=== PATIENT | female | born 1960 | race Caucasian/White ===

== ENCOUNTER 2022-03-01 11:14 | Inpatient (IN) | payer MEDICARE, MEDICAID, SELFPAY ==
[2022-03-01] VITALS (15 sets, daily range): BP systolic 64–120; BP diastolic 46–70; PULSE 73–189; RESP 12–23; TEMP 36.3–37.4; O2SAT 90–96; BMI 33.9
--- NOTE | ~2022-03-01 | CT_ITS ---
EXAMINATION: CT ANGIOGRAM OF THE CHEST WITH AND WITHOUT CONTRAST (CT PULMONARY ANGIOGRAM FOR PE) CLINICAL INFORMATION: Reason for Exam dyspnea elevated ddimer COMPARISON: Previous chest x-ray from earlier the same day TECHNIQUE: Prior to contrast administration, noncontrast localization images were obtained. Subsequently, multidetector volumetric imaging was performed from the thoracic inlet to below the diaphragms following the administration of 65 mL Omnipaque 350 intravenous contrast. No contrast reaction reported Sagittal, coronal, and MIP oblique sagittal reformatted images were obtained on the CT workstation, uploaded to PACS, and reviewed. This CT examination was performed using dose optimization techniques as appropriate, variously including the following: *Automated exposure control *Adjustment of mA and/or kV according to patient size (this includes techniques or standardized protocols for targeted exams where dose is matched to indication/reason for exam; i.e. extremities or head) *Use of iterative reconstruction technique Total exam dose-length product 342 mGy-cm FINDINGS: QUALITY OF STUDY/CONTRAST BOLUS: Satisfactory. PULMONARY ARTERIES: Evaluation of the pulmonary arteries is limited due to artifact from respiratory motion. No large or central pulmonary embolism is seen. Evaluation of smaller segmental and subsegmental pulmonary arteries is limited. THORACIC AORTA: No aneurysm or dissection. LUNG: There is consolidation and some atelectasis in the right middle lobe. There is a smaller area of atelectasis and consolidation seen in the dependent posterior basal right lower lobe. There are small nodular opacities right upper lobe and more superior right lower lobe and lingula. There is patchy atelectasis or consolidation in the lingula and left lower lobe. No endobronchial or endotracheal lesion. PLEURA: No pleural effusion or pneumothorax. MEDIASTINUM: Normal heart size. No pericardial effusion. Small mediastinal and right hilar nodes. No enlarged hilar or mediastinal lymphadenopathy. No evidence of septal bowing or right heart strain. CHEST WALL/AXILLA: No axillary or internal mammary lymphadenopathy. OSSEOUS STRUCTURES: No acute or suspicious osseous abnormality. UPPER ABDOMEN: The left adrenal gland may have been removed.. No reflux of contrast into the hepatic veins to suggest elevated right heart pressures. CT/CT angio chest PE protocol IMPRESSION: Limited evaluation for pulmonary embolism due to artifact from respiratory motion. No large or central pulmonary embolism. Evaluation of smaller segmental and subsegmental pulmonary arteries is limited due to motion artifact. Right middle lobe consolidation and atelectasis. Smaller consolidation and atelectasis in the posterior basal right lower lobe and inferior segment of the lingula. VTE: negative
--- NOTE | ~2022-03-01 | XR_ITS ---
EXAMINATION: XR CHEST CLINICAL INFORMATION: Dyspnea. COMPARISON: None TECHNIQUE: Frontal view of the chest was obtained. FINDINGS: An opacity seen at the right lung base laterally. The right upper lung field and left lung are clear. The heart and mediastinal structures are unremarkable. XR/XR chest 1V IMPRESSION: Small right pleural effusion and/or infiltrate/atelectasis.
--- NOTE | 2022-03-01 11:22 | ECG_ITS ---
Test Reason : hypotension Blood Pressure : / mmHG Vent. Rate : 144 BPM Atrial Rate : 000 BPM P-R Int : 000 ms QRS Dur : 078 ms QT Int : 278 ms P-R-T Axes : 000 030 043 degrees QTc Int : 430 ms Atrial fibrillation with rapid ventricular response Nonspecific ST abnormality Abnormal ECG No previous ECGs available Referred By: Maria Isabel Tobin Electronically Signed By:SHERRIE REZA MD
[2022-03-01] MEDS: dilTIAZem HCL 50 MG/10 ML VIAL IVPUSH ×2 (11:37→11:42)
[2022-03-01 11:40] LABS: Basophils Percent Auto 0.2 % (0-2); Eosinophils Percent Auto 0.1 % (0-4); Hematocrit 43.5 % (37.0-47.0); Hemoglobin 14.2 g/dl (12.0-16.0); Imm Gran Abs Auto 0.07 X10*3/uL (0.00-0.03); Imm Gran Pct Auto 0.5 % (0.0-0.4); Lymphocytes Absolute Auto 0.7 X10*3/uL (1.2-4.9); Lymphocytes Percent Auto 5.2 % (20-40); MANUAL DIFF FLAG SCAN; Mean Corpuscular HGB Conc 32.6 g/dl (31.0-35.0); Mean Corpuscular Hemoglobin 31.7 pg (27.0-33.0); Mean Corpuscular Volume 97.1 fL (80.0-98.0); Mean Platelet Volume 10.2 fL (9.4-12.3); Monocytes Absolute Auto 1.9 X10*3/uL (0.1-1.2); Monocytes Percent Auto 14.4 % (2-11); Neutrophils Absolute Auto 10.4 x10*3/uL (2.0-8.3); Neutrophils Percent Auto 79.6 % (45-73); Platelet Count 205 X10*3/uL (160-400); Red Blood Count 4.48 X10*6/uL (4.20-5.50); Red Cell Distribution Width 15.4 % (11.0-16.0); SCAN SMEAR FLAG 1; White Blood Count 13.1 X10*3/uL (4.8-10.8)
[2022-03-01] MEDS: Magnesium Sulfate/H2O 2 GM/50 ML PIGGYBACK IV (11:42)
[2022-03-01] MEDS: Hydrocortisone Sod Succ/PF 100 MG VIAL IVPUSH (11:42)
[2022-03-01] MEDS: 0.9 % Sodium Chloride 1,000 ML 999 ML IVCONT (11:42)
[2022-03-01 11:52] LABS: INTERNATIONAL NORM RATIO 1.4 (0.9-1.1); Prothrombin Time 16.1 SEC (9.9-13.0)
[2022-03-01 11:54] LABS: D Dimer High Sensitivity 540 NG/ML; Partial Thromboplastin Time 35.9 SEC (24.1-38.0)
[2022-03-01 11:57] LABS: SLIDE REVIEW VERIFIED
[2022-03-01] MEDS: dilTIAZem HCL 125 MG in 0.9 % Sodium Chloride 100 ML 10 MG IVCONT (12:00)
[2022-03-01] MEDS: Acetaminophen 325 MG TABLET 650 MG PO (12:03)
--- NOTE | 2022-03-01 12:03 | ED_ITS ---
HPI - Weakness General Chief complaint: General Medical Stated complaint: NAUSEA,CONFUSION,IRREG HEARTRATE Time Seen by Provider: 03/01/22 11:21 Source: patient Mode of arrival: EMS Limitations: no limitations History of Present Illness MD Complaint: generalized weakness (nausea, cough, fevers, chills) Onset (ago): day(s) (3) Duration: progressively worsening Location: generalized Migration: none Severity: moderate Quality: dull Relieving factors: none Exacerbating factors: movement and exertion Associated symptoms: fever/chills, loss of appetite, nausea/vomiting, myalgias and shortness of breath Related Data Home Medications Medication Instructions Recorded Confirmed albuterol sulfate 90 mcg/actuation 1 inh inhalation Q4H PRN Wheezing 03/01/22 03/01/22 aerosol inhaler amitriptyline 10 mg tablet 10 mg PO BEDTIME 03/01/22 03/01/22 cyclobenzaprine 5 mg tablet 5 mg PO BEDTIME 03/01/22 03/01/22 fluticasone propionate 220 1 puff PO BID 03/01/22 03/01/22 mcg/actuation HFA aerosol inhaler (Flovent HFA) fluticasone propionate 50 1 spray intranasal BID PRN Allergy 03/01/22 03/01/22 mcg/actuation nasal Symptoms spray,suspension ipratropium 0.5 mg-albuterol 3 mg 3 ml inhalation BID 03/01/22 03/01/22 (2.5 mg base)/3 mL nebulization soln letrozole 2.5 mg tablet 2.5 mg PO DAILY 03/01/22 03/01/22 prednisone 5 mg tablet 1 tab PO DAILY 03/01/22 03/01/22 Allergies Allergy/AdvReac Type Severity Reaction Status Date / Time Sulfa (Sulfonamide Allergy Anaphylaxis Verified 03/01/22 11:22 Antibiotics) Review of Systems Review of Systems: Constitutional : pos Fever, pos Chills, pos Fatigue, pos Malaise ENT/Mouth : No sore throat, No Rhinorrhea Eyes: No Eye Pain, No Swelling, No Redness Cardiovascular : No Chest Pain, pos SOB, pos Dyspnea on Exertion, No Orthopnea, No Edema, No Palpitations Respiratory : pos Cough, pos Sputum, pos Wheezing Gastrointestinal : pos Nausea, No Vomiting, No Diarrhea, No Constipation, No abdominal Pain, No Hematochezia, No Melena Genitourinary : No Dysuria, No Urinary Frequency, No Hematuria, Musculoskeletal : No joint pain, No Myalgias, No Joint Swelling Skin : No Skin Lesions, No rash Neuro : pos Weakness, No Numbness, No Dizziness, No Headache Psych : No Anxiety/Panic, No Depression Heme/Lymph: No Bruising, No Bleeding,No Lymphadenopathy Endocrine : No Polyuria, No Polydipsia All other systems reviewed and are negative [facility] Past Medical History Attestation statement: The following information was validated with the patient. Medical History Adrenal cancer Breast cancer COPD (chronic obstructive pulmonary disease) Social History Social History (Updated 03/01/22 @ 12:05 by Maria Isabel Tobin DO) Patient Tobacco Use Status: Current everyday Tobacco user Advance Directives: Yes Advance Directives on File: No Physical Exam Vital Signs: Vital Signs: Last Vital Signs Temp 99.3 F 03/01/22 11:25 Pulse 78 03/01/22 14:01 Resp 12 03/01/22 14:01 BP 106/58 L 03/01/22 14:01 Pulse Ox 91 L 03/01/22 14:01 O2 Del Method 03/01/22 14:01 O2 Flow Rate 7 03/01/22 14:01 Oxygen Flow Rate 2 03/01/22 11:25 BMI result Body Mass Index 33.9 Appearance: Alert. Oriented X3. Mild acute distress. Eyes: Pupils equal, round and reactive to light. ENT: Pharynx normal. Neck: Normal inspection. Neck supple. CVS: irregular tachycardic heart rate and rhythm. Pulses normal. Respiratory: No respiratory distress. Breath sounds very diminished and coarse Abdomen: Soft and non-tender. Skin: Skin warm and dry. Pale skin color. Normal skin turgor. Extremities: trace pitting lower extremity edema. No calf ttp Neuro: Oriented X 3. No motor deficit. No sensory deficit. Course Course Course Narrative: HR down to 100s, BP 100/50 feels much better 91% on 6L CTA pending drastically improved hypotension due to dilt gtt HR down in 70s gtt cut down will recheck BP I do not think hypotension is due to infection or severe sepsis but due to the diltiazem gtt. diltiazem gtt stopped BP already up patient feels better elevation in troponin is due to demand from rapid afib - she denies chest pain MDM - Weakness MDM Narrative Medical decision making narrative: 61 yo female with hx of COPD, breast cancer, adrenal cancer on daily prednisone reports fevers, chills, productive cough, she comes in rapid afib, increased O2 demands 80s at home, hot to touch - at this time dilt bolus, PO tylenol, IVF, CXR - empiric ceftriaxone/doxy, xopenex. Given adrenal insufficiency will bolus with 100mg hydrocortisone. Lab Data Result diagrams: 03/01/22 11:31 03/01/22 13:37 Labs: Lab Results 03/01/22 03/01/22 03/01/22 Range/Units 11:31 11:31 11:31 WBC 13.1 H (4.8-10.8) X10*3/uL RBC 4.48 (4.20-5.50) X10*6/uL Hgb 14.2 (12.0-16.0) g/dl Hct 43.5 (37.0-47.0) % MCV 97.1 (80.0-98.0) fL MCH 31.7 (27.0-33.0) pg MCHC 32.6 (31.0-35.0) g/dl RDW 15.4 (11.0-16.0) % Plt Count 205 (160-400) X10*3/uL MPV 10.2 (9.4-12.3) fL Immature Gran % (Auto) 0.5 H (0.0-0.4) % Neut % (Auto) 79.6 H (45-73) % Lymph % (Auto) 5.2 L (20-40) % Humphreys % (Auto) 14.4 H (2-11) % Eos % (Auto) 0.1 (0-4) % Baso % (Auto) 0.2 (0-2) % Lymph # (Auto) 0.7 L (1.2-4.9) X10*3/uL Humphreys # (Auto) 1.9 H (0.1-1.2) X10*3/uL Eos # (Auto) 0.0 (0.0-0.4) X10*3/uL Baso # (Auto) 0.0 (0.0-0.2) X10*3/uL Abs Immat Gran (auto) 0.07 H (0.00-0.03) X10*3/uL Absolute Neuts (auto) 10.4 H (2.0-8.3) x10*3/uL Absolute Nucleated RBC 0.000 (0.0-0.012) X10*3/uL Nucleated RBC % (auto) 0.0 (0.0-0.2) /100WBC Smear Tech's Comments VERIFIED PT 16.1 H (9.9-13.0) SEC INR 1.4 H (0.9-1.1) APTT 35.9 (24.1-38.0) SEC D-Dimer High Sensitivty 540 NG/ML VBG pH (7.32-7.43) VBG pCO2 mmHg VBG pO2 mmHg VBG HCO3 (22-26) mmol/L VBG O2 Saturation % VBG Base Excess mmol/L Sodium (135-145) mmol/L Potassium (3.3-5.1) mmol/L Chloride (96-108) mmol/L Carbon Dioxide (22-29) mmol/L Anion Gap (12-20) BUN (9-16) mg/dL Creatinine (0.5-1.4) mg/dL Estim Creat Clear Calc Estimated GFR Random Glucose (60-115) mg/dL Lactic Acid 2.7 H* (0.5-2.0) mmol/L Lactic Acid F/U @ 2Hr (0.5-2.0) mmol/L Calcium (8.4-10.2) mg/dL Magnesium (1.6-2.6) mg/dL Total Bilirubin (0.0-1.0) mg/dL Direct Bilirubin (0.0-0.5) mg/dL AST (5-31) U/L ALT (0-31) U/L Alkaline Phosphatase (39-117) U/L Troponin I High Sens (<3.5-17.0) ng/L B-Natriuretic Peptide (<100) pg/mL Total Protein (6.5-8.0) g/dL Albumin (3.5-5.0) g/dL Lipase (8-78) U/L Procalcitonin ng/mL COVID-19 ([facility]) (Negative) COVID-19 Clin Com 03/01/22 03/01/22 03/01/22 Range/Units 11:31 11:31 11:35 WBC (4.8-10.8) X10*3/uL RBC (4.20-5.50) X10*6/uL Hgb (12.0-16.0) g/dl Hct (37.0-47.0) % MCV (80.0-98.0) fL MCH (27.0-33.0) pg MCHC (31.0-35.0) g/dl RDW (11.0-16.0) % Plt Count (160-400) X10*3/uL MPV (9.4-12.3) fL Immature Gran % (Auto) (0.0-0.4) % Neut % (Auto) (45-73) % Lymph % (Auto) (20-40) % Humphreys % (Auto) (2-11) % Eos % (Auto) (0-4) % Baso % (Auto) (0-2) % Lymph # (Auto) (1.2-4.9) X10*3/uL Humphreys # (Auto) (0.1-1.2) X10*3/uL Eos # (Auto) (0.0-0.4) X10*3/uL Baso # (Auto) (0.0-0.2) X10*3/uL Abs Immat Gran (auto) (0.00-0.03) X10*3/uL Absolute Neuts (auto) (2.0-8.3) x10*3/uL Absolute Nucleated RBC (0.0-0.012) X10*3/uL Nucleated RBC % (auto) (0.0-0.2) /100WBC Smear Tech's Comments PT (9.9-13.0) SEC INR (0.9-1.1) APTT (24.1-38.0) SEC D-Dimer High Sensitivty NG/ML VBG pH (7.32-7.43) VBG pCO2 mmHg VBG pO2 mmHg VBG HCO3 (22-26) mmol/L VBG O2 Saturation % VBG Base Excess mmol/L Sodium (135-145) mmol/L Potassium (3.3-5.1) mmol/L Chloride (96-108) mmol/L Carbon Dioxide (22-29) mmol/L Anion Gap (12-20) BUN (9-16) mg/dL Creatinine (0.5-1.4) mg/dL Estim Creat Clear Calc Estimated GFR Random Glucose (60-115) mg/dL Lactic Acid (0.5-2.0) mmol/L Lactic Acid F/U @ 2Hr (0.5-2.0) mmol/L Calcium (8.4-10.2) mg/dL Magnesium (1.6-2.6) mg/dL Total Bilirubin (0.0-1.0) mg/dL Direct Bilirubin (0.0-0.5) mg/dL AST (5-31) U/L ALT (0-31) U/L Alkaline Phosphatase (39-117) U/L Troponin I High Sens 19.9 H (<3.5-17.0) ng/L B-Natriuretic Peptide 80 (<100) pg/mL Total Protein (6.5-8.0) g/dL Albumin (3.5-5.0) g/dL Lipase (8-78) U/L Procalcitonin 0.70 ng/mL COVID-19 ([facility]) Negative (Negative) COVID-19 Clin Com See Note 03/01/22 03/01/22 03/01/22 Range/Units 11:37 13:37 14:22 WBC (4.8-10.8) X10*3/uL RBC (4.20-5.50) X10*6/uL Hgb (12.0-16.0) g/dl Hct (37.0-47.0) % MCV (80.0-98.0) fL MCH (27.0-33.0) pg MCHC (31.0-35.0) g/dl RDW (11.0-16.0) % Plt Count (160-400) X10*3/uL MPV (9.4-12.3) fL Immature Gran % (Auto) (0.0-0.4) % Neut % (Auto) (45-73) % Lymph % (Auto) (20-40) % Humphreys % (Auto) (2-11) % Eos % (Auto) (0-4) % Baso % (Auto) (0-2) % Lymph # (Auto) (1.2-4.9) X10*3/uL Humphreys # (Auto) (0.1-1.2) X10*3/uL Eos # (Auto) (0.0-0.4) X10*3/uL Baso # (Auto) (0.0-0.2) X10*3/uL Abs Immat Gran (auto) (0.00-0.03) X10*3/uL Absolute Neuts (auto) (2.0-8.3) x10*3/uL Absolute Nucleated RBC (0.0-0.012) X10*3/uL Nucleated RBC % (auto) (0.0-0.2) /100WBC Smear Tech's Comments PT (9.9-13.0) SEC INR (0.9-1.1) APTT (24.1-38.0) SEC D-Dimer High Sensitivty NG/ML VBG pH 7.34 (7.32-7.43) VBG pCO2 46 mmHg VBG pO2 49 mmHg VBG HCO3 25 (22-26) mmol/L VBG O2 Saturation 73.0 % VBG Base Excess -1.1 mmol/L Sodium 135 (135-145) mmol/L Potassium 4.5 (3.3-5.1) mmol/L Chloride 99 (96-108) mmol/L Carbon Dioxide 22 (22-29) mmol/L Anion Gap 19 (12-20) BUN 24 H (9-16) mg/dL Creatinine 1.11 (0.5-1.4) mg/dL Estim Creat Clear Calc 53.5 Estimated GFR 50 Random Glucose 123 H (60-115) mg/dL Lactic Acid (0.5-2.0) mmol/L Lactic Acid F/U @ 2Hr 0.9 (0.5-2.0) mmol/L Calcium 9.3 (8.4-10.2) mg/dL Magnesium 2.8 H (1.6-2.6) mg/dL Total Bilirubin 2.7 H (0.0-1.0) mg/dL Direct Bilirubin 1.4 H (0.0-0.5) mg/dL AST 23 (5-31) U/L ALT 16 (0-31) U/L Alkaline Phosphatase 106 (39-117) U/L Troponin I High Sens (<3.5-17.0) ng/L B-Natriuretic Peptide (<100) pg/mL Total Protein 7.0 (6.5-8.0) g/dL Albumin 3.8 (3.5-5.0) g/dL Lipase < 4 L (8-78) U/L Procalcitonin ng/mL COVID-19 ([facility]) (Negative) COVID-19 Clin Com 03/01/22 Range/Units 14:49 WBC (4.8-10.8) X10*3/uL RBC (4.20-5.50) X10*6/uL Hgb (12.0-16.0) g/dl Hct (37.0-47.0) % MCV (80.0-98.0) fL MCH (27.0-33.0) pg MCHC (31.0-35.0) g/dl RDW (11.0-16.0) % Plt Count (160-400) X10*3/uL MPV (9.4-12.3) fL Immature Gran % (Auto) (0.0-0.4) % Neut % (Auto) (45-73) % Lymph % (Auto) (20-40) % Humphreys % (Auto) (2-11) % Eos % (Auto) (0-4) % Baso % (Auto) (0-2) % Lymph # (Auto) (1.2-4.9) X10*3/uL Humphreys # (Auto) (0.1-1.2) X10*3/uL Eos # (Auto) (0.0-0.4) X10*3/uL Baso # (Auto) (0.0-0.2) X10*3/uL Abs Immat Gran (auto) (0.00-0.03) X10*3/uL Absolute Neuts (auto) (2.0-8.3) x10*3/uL Absolute Nucleated RBC (0.0-0.012) X10*3/uL Nucleated RBC % (auto) (0.0-0.2) /100WBC Smear Tech's Comments PT (9.9-13.0) SEC INR (0.9-1.1) APTT (24.1-38.0) SEC D-Dimer High Sensitivty NG/ML VBG pH (7.32-7.43) VBG pCO2 mmHg VBG pO2 mmHg VBG HCO3 (22-26) mmol/L VBG O2 Saturation % VBG Base Excess mmol/L Sodium (135-145) mmol/L Potassium (3.3-5.1) mmol/L Chloride (96-108) mmol/L Carbon Dioxide (22-29) mmol/L Anion Gap (12-20) BUN (9-16) mg/dL Creatinine (0.5-1.4) mg/dL Estim Creat Clear Calc Estimated GFR Random Glucose (60-115) mg/dL Lactic Acid (0.5-2.0) mmol/L Lactic Acid F/U @ 2Hr (0.5-2.0) mmol/L Calcium (8.4-10.2) mg/dL Magnesium (1.6-2.6) mg/dL Total Bilirubin (0.0-1.0) mg/dL Direct Bilirubin (0.0-0.5) mg/dL AST (5-31) U/L ALT (0-31) U/L Alkaline Phosphatase (39-117) U/L Troponin I High Sens 55.0 H* D (<3.5-17.0) ng/L B-Natriuretic Peptide (<100) pg/mL Total Protein (6.5-8.0) g/dL Albumin (3.5-5.0) g/dL Lipase (8-78) U/L Procalcitonin ng/mL COVID-19 ([facility]) (Negative) COVID-19 Clin Com ECG Data Attestation: I personally reviewed and interpreted this ECG as follows: ECG interpretation date: 03/01/22 ECG interpretation time: 12:36 Interpretation: Rate: 144 Rhythm: afib with rvr [place]: normal Normal QRS complex. ST T wave : non specific no LORENZO qTC: normal prior studies: none The study has been interpreted contemporaneously by me. EKG #2 Rate: 72 Rhythm: NSR [place]: normal Normal P waves. Normal SHANITA. Normal QRS complex. ST T wave : no LORENZO, inverted I and aVL, V1-V2 qTC: normal prior studies: now in NSR The study has been interpreted contemporaneously by me. Critical Care Time Critical Care Time Critical Care Time: Yes Total Critical Care Time: 60 Attestation: IVF, IV dilt bolus x 2, albuterol neb, HR control, admission to hospital, bedside management I attest to this time spent taking care of the patient Discharge Plan Discharge Clinical Impression: Atrial fibrillation with rapid ventricular response, Acidosis, lactic, Acute exacerbation of chronic obstructive pulmonary disease Pneumonia Qualifiers: Pneumonia type: due to unspecified organism Laterality: right Lung location: lower lobe of lung Qualified Code(s): J18.9 - Pneumonia, unspecified organism Patient Disposition: Admitted As Inpatient
[2022-03-01 12:05] LABS: Troponin-I High Sensitivity 19.9 ng/L (<3.5-17.0)
[2022-03-01 12:08] LABS: Venous Blood Gas Refer to POC result
[2022-03-01 12:08] LABS: VBG Base Excess -1.1 mmol/L; VBG HCO3 25 mmol/L (22-26); VBG pCO2 46 mmHg; VBG pH 7.34 (7.32-7.43); VBG pO2 49 mmHg
[2022-03-01 12:10] LABS: Lactic Acid 2.7 mmol/L (0.5-2.0)
[2022-03-01] MEDS: cefTRIAXone sodium 1 GM in 0.9 % Sodium Chloride 50 ML IV (12:22)
[2022-03-01 12:25] LABS: COVID-19 Test Negative (Negative); IDNOW Serial# 16C4AD1C
--- NOTE | 2022-03-01 12:29 | PC.NURSE ---
HR 130s-140s, BP 99/58 Dr. Tobin instructed to leave drip at 15 mg/hr.
[2022-03-01 13:37] LABS: Reflex Lactate? Lactic Acid Added
--- NOTE | 2022-03-01 13:54 | PC.NURSE ---
HR at 82, BP 82/50, Cardizem titrated to 5 mg/hr. Patient asymptomatic. MD aware, fluids running
--- NOTE | 2022-03-01 13:56 | PHA.MEDREC ---
Pharmacy Consult ? Medication Reconciliation Pharmacy has completed the medication reconciliation. Patient reported all medications and had some prescription bottles with her. Patient has non formulary medication Letrozol, if patient gets admitted. Bonnie Sawyer, TilaD
[2022-03-01 13:57] LABS: B Type Natriuretic Peptide 80 pg/mL (<100)
--- NOTE | 2022-03-01 13:58 | ECG_ITS ---
Test Reason : NSR Blood Pressure : / mmHG Vent. Rate : 072 BPM Atrial Rate : 072 BPM P-R Int : 148 ms QRS Dur : 074 ms QT Int : 376 ms P-R-T Axes : 055 018 084 degrees QTc Int : 411 ms Normal sinus rhythm Cannot rule out Inferior infarct , age undetermined Abnormal ECG When compared with ECG of 01-MAR-2022 11:47, Previous ECG has undetermined rhythm, needs review Minimal criteria for Inferior infarct are now Present T wave inversion now evident in Anterolateral leads Referred By: Maria Isabel Tobin Electronically Signed By:John Roa
[2022-03-01] MEDS: Doxycycline Hyclate 100 MG in 0.9 % Sodium Chloride 250 ML 166.67 MG IV (14:06)
--- NOTE | 2022-03-01 14:16 | PC.NURSE ---
Patient remains asymptomatic. cardizem drip stopped per . BP 106/56, HR 78. MD aware.
[2022-03-01 14:26] LABS: Alanine Aminotransferase 16 U/L (0-31); Albumin Level 3.8 g/dL (3.5-5.0); Alkaline Phosphatase 106 U/L (39-117); Anion Gap 19 (12-20); Aspartate Amino Transferase 23 U/L (5-31); Bilirubin Direct 1.4 mg/dL (0.0-0.5); Bilirubin Total 2.7 mg/dL (0.0-1.0); Blood Urea Nitrogen 24 mg/dL (9-16); Calcium 9.3 mg/dL (8.4-10.2); Carbon Dioxide 22 mmol/L (22-29); Chloride 99 mmol/L (96-108); Creatinine Clr Calc Pharmacy 53.5; Estimated Glomerular Filt Rate 50; Glucose Random 123 mg/dL (60-115); Lipase < 4 U/L (8-78); Magnesium 2.8 mg/dL (1.6-2.6); Potassium 4.5 mmol/L (3.3-5.1); Sodium 135 mmol/L (135-145)
[2022-03-01 14:40] LABS: ~Lactic Acid-LAB USE ONLY 0.9 mmol/L (0.5-2.0)
[2022-03-01] MEDS: 0.9 % Sodium Chloride 1,000 ML 999 ML IV (14:41)
[2022-03-01] MEDS: iohexoL 350 MG/ML 100 ML INFUS..BTL IV (15:25)
--- NOTE | 2022-03-01 17:17 | P.HPHOSP_ITS ---
History of Present Illness Date of Service: 03/01/22 Attending physician on admission: Paul Houser Chief Complaint: generalized weakness 61-year-old female patient with past medical history significant for COPD on 2 L of home oxygen as needed for shortness of breath, history of breast cancer and adrenal cancer on daily prednisone presented to [facility] with 4-5 days history of generalized weakness, body ache associated with subjective fevers chills decreased appetite nausea vomiting and shortness of breath patient did to home COVID test that were negative, she noted her oxygenation was 84-86% last night therefore use 5 L of oxygen but since symptoms were progressing she came to the ED in the ED patient was noted to be in atrial fibrillation with rapid ventricular response therefore she was treated with Cardizem IV boluses subsequently she converted to normal sinus rhythm and noted to have low blood pressure therefore treated with IV fluid blood pressure improved heart rate remains in sinus since stable at present, for further workup showed mildly elevated WBC count, elevated bilirubin with normal liver enzymes, troponin elevated at 55 chest x-ray showed no acute infiltrate COVID-19 negative, CTA chest showed no evidence of large or central PE, evaluation of smaller segmental and subsegmental pulmonary artery was limited due to motion artifact, patient noted to have right middle lobe and posterior basis consolidation and atelectasis, as well as consolidation/atelectasis in inferior segment of lingula, patient of being admitted for continued monitoring and treatment. Review of Systems Review of Systems: General no headache no dizziness CVS no chest pain, no palpitation. Respiratory Shortness of breath and cough no urinary urgency, no dysuria vascular skeletal generalized myalgias and body ache skin no rash Yes all other systems are reviewed and are negative [facility] Medical History Adrenal cancer Breast cancer COPD (chronic obstructive pulmonary disease) Pertinent family history: mother had atrial fibrillation and COPD /not aware of her father Social History Patient Tobacco Use Status: Current everyday Tobacco user Advance Directives: Yes Advance Directives on File: No Meds Allergies Allergy/AdvReac Type Severity Reaction Status Date / Time Sulfa (Sulfonamide Allergy Anaphylaxis Verified 03/01/22 11:22 Antibiotics) Active Medications: Current Medications Acetaminophen (Acetaminophen 325 Mg Tablet) 650 mg PO Q6H PRN PRN Reason: Pain, Mild (Pain Scale 1-3) Albuterol/Ipratropium (Albuterol/Iprat 2.5/0.5mg 3 Ml Ampul.Neb) 3 ml INHALE RQ6H WHILE AWAKE [facility] Albuterol/Ipratropium (Albuterol/Iprat 2.5/0.5mg 3 Ml Ampul.Neb) 3 ml INHALE RQ4H PRN PRN Reason: sob Amitriptyline HCl (Amitriptyline Hcl 10 Mg Tablet) 10 mg PO BEDTIME CAREY Cyclobenzaprine HCl (Cyclobenzaprine Hcl 5 Mg Tablet) 5 mg PO BEDTIME [facility] Enoxaparin Sodium (Enoxaparin Sodium 40 Mg/0.4 Ml Syringe) 40 mg SUBCUT Q24H [facility] Diltiazem HCl 125 mg/ Sodium (Chloride) 125 mls @ 0 mls/hr IVCONT .Q0M [facility]; Protocol Last Titration: 03/01/22 13:57 Dose: 0 mg/hr, 0 mls/hr Ceftriaxone Sodium 1 gm/ (Sodium Chloride) 50 mls @ 100 mls/hr IV Q24H [facility] Azithromycin 500 mg/ Sodium (Chloride) 250 mls @ 125 mls/hr IV Q24H [facility] Letrozole (Letrozole 2.5 Mg Tablet) 2.5 mg PO DAILY [facility] Melatonin (Melatonin 3 Mg Tablet) 3 mg PO BEDTIME PRN PRN Reason: Insomnia Methylprednisolone Sodium Succinate (Methylprednisolone Sod Succ 40 Mg/Ml Vial) 40 mg IVPUSH Q8H [facility] Nicotine (Nicotine 21 Mg Patch.Td24) 21 mg TRANSDERMA DAILY [facility] Nicotine Polacrilex (Nicotine Polacrilex 2 Mg Gum) 2 mg BUCCAL Q2H PRN PRN Reason: Nicotine Cravings Ondansetron HCl (Ondansetron Hcl 4 Mg/2 Ml Vial) 4 mg IVPUSH Q8H PRN PRN Reason: Nausea and Vomiting Pharmacy Consult (Consult Rx Perform Med Rec) 1 each MISCELLANE ONCE PRN PRN Reason: Consult order Sodium Chloride (0.9 % Sodium Chloride Flush 3 Ml Syringe) 3 ml IVFLUSH QSHIFT [facility] Home Medications Medication Instructions Recorded Confirmed Last Taken Type albuterol sulfate 90 mcg/actuation 1 inh inhalation Q4H PRN Wheezing 03/01/22 03/01/22 02/28/22 History aerosol inhaler amitriptyline 10 mg tablet 10 mg PO BEDTIME 03/01/22 03/01/22 02/28/22 History cyclobenzaprine 5 mg tablet 5 mg PO BEDTIME 03/01/22 03/01/22 02/28/22 History fluticasone propionate 220 1 puff PO BID 03/01/22 03/01/22 02/28/22 History mcg/actuation HFA aerosol inhaler (Flovent HFA) fluticasone propionate 50 1 spray intranasal BID PRN Allergy 03/01/22 03/01/22 02/28/22 History mcg/actuation nasal Symptoms spray,suspension ipratropium 0.5 mg-albuterol 3 mg 3 ml inhalation BID 03/01/22 03/01/22 02/28/22 History (2.5 mg base)/3 mL nebulization soln letrozole 2.5 mg tablet 2.5 mg PO DAILY 03/01/22 03/01/22 03/01/22 History prednisone 5 mg tablet 1 tab PO DAILY 03/01/22 03/01/22 02/28/22 History Physical Exam Vital Signs and Narrative: Vital Signs: Last Vital Signs Temp 97.6 F 03/01/22 16:00 Pulse 75 03/01/22 16:00 Resp 16 03/01/22 16:00 BP 102/58 L 03/01/22 16:00 Pulse Ox 93 03/01/22 16:00 O2 Del Method 03/01/22 16:00 O2 Flow Rate 6 03/01/22 16:00 Oxygen Flow Rate 2 03/01/22 11:25 BMI result Body Mass Index 33.9 Const: Other: General awake alert x3, no acute distress. HEENT PERRLA , anicteric sclerae Neck supple no JVD. CVS regular rate rhythm, Respiratory lungs coarse breath sounds with expiratory rhonchi, no use of accessory muscles Gastrointestinal abdomen soft, nontender, bowel sounds audible, no guarding , no rigidity. Extremities no edema. Neuro nonfocal Skin no rash psych appropriate affect Results Labs CBC and Chem 7: 03/01/22 11:31 03/01/22 13:37 Labs: Laboratory Results - last 24 hr 03/01/22 03/01/22 03/01/22 11:31 11:31 11:31 MCV 97.1 MCH 31.7 MCHC 32.6 RDW 15.4 Plt Count 205 MPV 10.2 Immature Gran % (Auto) 0.5 H Neut % (Auto) 79.6 H Lymph % (Auto) 5.2 L Emmet % (Auto) 14.4 H Eos % (Auto) 0.1 Baso % (Auto) 0.2 Lymph # (Auto) 0.7 L Emmet # (Auto) 1.9 H Eos # (Auto) 0.0 Baso # (Auto) 0.0 Abs Immat Gran (auto) 0.07 H Absolute Neuts (auto) 10.4 H Absolute Nucleated RBC 0.000 Nucleated RBC % (auto) 0.0 Smear Tech's Comments VERIFIED PT 16.1 H INR 1.4 H APTT 35.9 D-Dimer High Sensitivty 540 VBG pH VBG pCO2 VBG pO2 VBG HCO3 VBG O2 Saturation VBG Base Excess Anion Gap Estim Creat Clear Calc Estimated GFR Random Glucose Lactic Acid 2.7 H* Lactic Acid F/U @ 2Hr Calcium Magnesium Total Bilirubin Direct Bilirubin AST ALT Alkaline Phosphatase Troponin I High Sens B-Natriuretic Peptide Total Protein Albumin Lipase Procalcitonin COVID-19 ([facility]) [employer] 03/01/22 03/01/22 03/01/22 11:31 11:31 11:35 MCV MCH MCHC RDW Plt Count MPV Immature Gran % (Auto) Neut % (Auto) Lymph % (Auto) Emmet % (Auto) Eos % (Auto) Baso % (Auto) Lymph # (Auto) Emmet # (Auto) Eos # (Auto) Baso # (Auto) Abs Immat Gran (auto) Absolute Neuts (auto) Absolute Nucleated RBC Nucleated RBC % (auto) Smear Tech's Comments PT INR APTT D-Dimer High Sensitivty VBG pH VBG pCO2 VBG pO2 VBG HCO3 VBG O2 Saturation VBG Base Excess Anion Gap Estim Creat Clear Calc Estimated GFR Random Glucose Lactic Acid Lactic Acid F/U @ 2Hr Calcium Magnesium Total Bilirubin Direct Bilirubin AST ALT Alkaline Phosphatase Troponin I High Sens 19.9 H B-Natriuretic Peptide 80 Total Protein Albumin Lipase Procalcitonin 0.70 COVID-19 ([facility]) Negative COVID-[facility] See Note 03/01/22 03/01/22 03/01/22 11:37 13:37 14:22 MCV MCH MCHC RDW Plt Count MPV Immature Gran % (Auto) Neut % (Auto) Lymph % (Auto) Emmet % (Auto) Eos % (Auto) Baso % (Auto) Lymph # (Auto) Emmet # (Auto) Eos # (Auto) Baso # (Auto) Abs Immat Gran (auto) Absolute Neuts (auto) Absolute Nucleated RBC Nucleated RBC % (auto) Smear Tech's Comments PT INR APTT D-Dimer High Sensitivty VBG pH 7.34 VBG pCO2 46 VBG pO2 49 VBG HCO3 25 VBG O2 Saturation 73.0 VBG Base Excess -1.1 Anion Gap 19 Estim Creat Clear Calc 53.5 Estimated GFR 50 Random Glucose 123 H Lactic Acid Lactic Acid F/U @ 2Hr 0.9 Calcium 9.3 Magnesium 2.8 H Total Bilirubin 2.7 H Direct Bilirubin 1.4 H AST 23 ALT 16 Alkaline Phosphatase 106 Troponin I High Sens B-Natriuretic Peptide Total Protein 7.0 Albumin 3.8 Lipase < 4 L Procalcitonin COVID-19 ([facility]) COVID-19 [employer] 03/01/22 14:49 MCV MCH MCHC RDW Plt Count MPV Immature Gran % (Auto) Neut % (Auto) Lymph % (Auto) Emmet % (Auto) Eos % (Auto) Baso % (Auto) Lymph # (Auto) Emmet # (Auto) Eos # (Auto) Baso # (Auto) Abs Immat Gran (auto) Absolute Neuts (auto) Absolute Nucleated RBC Nucleated RBC % (auto) Smear Tech's Comments PT INR APTT D-Dimer High Sensitivty VBG pH VBG pCO2 VBG pO2 VBG HCO3 VBG O2 Saturation VBG Base Excess Anion Gap Estim Creat Clear Calc Estimated GFR Random Glucose Lactic Acid Lactic Acid F/U @ 2Hr Calcium Magnesium Total Bilirubin Direct Bilirubin AST ALT Alkaline Phosphatase Troponin I High Sens 55.0 H* D B-Natriuretic Peptide Total Protein Albumin Lipase Procalcitonin COVID-19 ([facility]) COVID-19 [employer] [facility] Radiologist's Impressions: Impressions Chest X-Ray 03/01/22 11:40 IMPRESSION: Small right pleural effusion and/or infiltrate/atelectasis. Chest CTA 03/01/22 15:30 IMPRESSION: Limited evaluation for pulmonary embolism due to artifact from respiratory motion. No large or central pulmonary embolism. Evaluation of smaller segmental and subsegmental pulmonary arteries is limited due to motion artifact. Right middle lobe consolidation and atelectasis. Smaller consolidation and atelectasis in the posterior basal right lower lobe and inferior segment of the lingula. VTE: negative Assessment and Plan (1) Atrial fibrillation with rapid ventricular response: Status: Acute (2) Pneumonia: Qualifiers: Laterality: right Lung location: lower lobe of lung Pneumonia type: due to unspecified organism Qualified Code(s): J18.9 - Pneumonia, unspecified organism Status: Acute (3) Acute exacerbation of chronic obstructive pulmonary disease: Status: Acute (4) Tobacco use disorder: Status: Acute (5) Acidosis, lactic: Status: Acute Plan 61-year-old female with past medical history of COPD on 2 L of home oxygen as needed, history of breast cancer/adrenal cancer, with history of continues tobacco use smoke 2 packs of cigarettes per day presented with symptoms of generalized weakness, myalgias fever chills nausea vomiting shortness of breath hypoxia. atrial fibrillation with RVR no prior history of atrial fibrillation, patient converted to normal sinus rhythm after IV Cardizem boluses with drop in blood pressure currently blood pressure and pulse is stable denies chest pain, no shortness of breath will hold off on anticoagulation since had transient atrial fibrillation , will discuss further treatment plan with Cardiology obtain cardiology consult/ check TSH/ echo elevated troponin likely related to atrial fibrillation patient denies chest pain, no palpitation will follow repeat troponin and check an echocardiogram acute on chronic hypoxic respiratory failure due to COPD exacerbation/ multi focal pneumonia COVID negative will check respiratory viral panel, check Legionella and strep pneumo antigen will treat with IV Solu Medrol, scheduled and as needed updraft treatment, IV ceftriaxone and azithromycin continue oxygen support and wean as tolerated cough medication/ incentive spirometry lactic acidosis likely related to hypoxia/ use of updraft treatment not due to sepsis tobacco use disorder will place on nicotine patch and nicotine gum patient is motivated to quit smoking history of breast/adrenal tumor continue letrozole, hold prednisone maintenance dose since patient being treated with IV steroids elevated bilirubin, no abdominal pain normal liver enzymes will follow DVT prophylaxis with Lovenox code status full code patient need 2 night inpatient stay due to multi focal pneumonia with hypoxic respiratory failure requiring IV antibiotics and IV steroids. Quality Stroke Does the patient have a stroke diagnosis?: No VTE Prior VTE?: No VTE Risk Level:: Medical - moderate - high VTE Device Contraindication: Treatment Not Indicated VTE Drug Contraindication: N/A - Med Ordered
[2022-03-01] MEDS: Enoxaparin Sodium 40 MG/0.4 ML SYRINGE SUBCUT (18:06)
[2022-03-01] MEDS: methylPREDNISolone Sod Succ 40 MG/ML VIAL IVPUSH (18:06)
[2022-03-01] MEDS: Nicotine 21 MG PATCH.TD24 TRANSDERMA (18:06)
[2022-03-01] MEDS: Azithromycin 500 MG in 0.9 % Sodium Chloride 250 ML 125 MG IV (18:07)
[2022-03-01 19:20] LABS: Troponin-I High Sensitivity 39.9 ng/L (<3.5-17.0)
--- NOTE | 2022-03-01 19:54 | PC.NURSE ---
PATIENT WAS ASSISTED INTO BEDSIDE COMMODE .
[2022-03-01 20:02] LABS: Appearance Urine CLEAR; Color Urine DK YELLOW; Glucose Urine UA NEG (NEG); Leukocyte Esterase Urine NEG (NEG); Nitrite Urine NEG (NEG); UACC Culture Trigger NO; Urine Blood TRACE (NEG); Urine Ketones 5 MG/DL (NEG); Urine Protein 1+ MG/DL (NEG-TRACE)
[2022-03-01 20:17] LABS: Bacteria Urine 1+ /LPF; Mucus Urine TRACE /LPF; Squamous Epithelial Cell Urine 1+ /LPF
[2022-03-01] MEDS: Albuterol/Iprat 2.5/0.5MG 3 ML AMPUL.NEB INHALE (20:23)
[2022-03-01] MEDS: Cyclobenzaprine HCl 5 MG TABLET PO (21:12)
[2022-03-01] MEDS: Amitriptyline HCl 10 MG TABLET PO (21:13)
[2022-03-02] VITALS (13 sets, daily range): BP systolic 125–160; BP diastolic 67–81; PULSE 75–98; RESP 16–20; TEMP 36.1–36.8; O2SAT 89–98
[2022-03-02] MEDS: 0.9 % Sodium Chloride Flush 3 ML SYRINGE IVFLUSH ×4 (01:17→19:47)
[2022-03-02] MEDS: methylPREDNISolone Sod Succ 40 MG/ML VIAL IVPUSH ×2 (01:17→09:43)
--- NOTE | 2022-03-02 01:27 | PC.NURSE ---
fluids, antibiotics and magnesium were infused prior to this RN assumming care
--- NOTE | 2022-03-02 02:35 | PC.NURSE ---
pt disconnected from monitor to use bedside commode. pt transferred OOB and voided independently, steady gait, remains O2 dependent
[2022-03-02 07:14] LABS: Hematocrit 36.6 % (37.0-47.0); Hemoglobin 11.9 g/dl (12.0-16.0); Mean Corpuscular HGB Conc 32.5 g/dl (31.0-35.0); Mean Corpuscular Hemoglobin 31.7 pg (27.0-33.0); Mean Corpuscular Volume 97.6 fL (80.0-98.0); Mean Platelet Volume 10.1 fL (9.4-12.3); Platelet Count 159 X10*3/uL (160-400); Red Blood Count 3.75 X10*6/uL (4.20-5.50); Red Cell Distribution Width 15.3 % (11.0-16.0); White Blood Count 5.9 X10*3/uL (4.8-10.8)
[2022-03-02 07:38] LABS: Alanine Aminotransferase 16 U/L (0-31); Albumin Level 3.4 g/dL (3.5-5.0); Alkaline Phosphatase 98 U/L (39-117); Aspartate Amino Transferase 16 U/L (5-31); Bilirubin Direct 0.3 mg/dL (0.0-0.5); Bilirubin Total 0.4 mg/dL (0.0-1.0); Total Protein 5.8 g/dL (6.5-8.0)
[2022-03-02 07:59] LABS: Thyroid Stimulating Hormone 0.22 uIU/mL (0.32-4.0)
[2022-03-02] MEDS: Albuterol/Iprat 2.5/0.5MG 3 ML AMPUL.NEB INHALE ×3 (08:11→19:56)
[2022-03-02 08:54] LABS: Adenovirus PCR Not Detected (Not Detect.); Bordetella parapertussis PCR Not Detected (Not Detect.); Bordetella pertussis PCR Not Detected (Not Detect.); Chlamydia pneumoniae PCR Not Detected (Not Detect.); Coronavirus 229E PCR Not Detected (Not Detect.); Coronavirus HKU1 PCR Not Detected (Not Detect.); Coronavirus NL63 PCR Not Detected (Not Detect.); Coronavirus OC43 PCR Not Detected (Not Detect.); Human metapneumovirus PCR Not Detected (Not Detect.); Influenza A PCR Not Detected (Not Detect.); Influenza B PCR Not Detected (Not Detect.); Mycoplasma pneumoniae PCR Not Detected (Not Detect.); Parainfluenza 1 PCR Not Detected (Not Detect.); Parainfluenza 2 PCR Not Detected (Not Detect.); Parainfluenza 3 PCR Not Detected (Not Detect.); Parainfluenza 4 PCR Not Detected (Not Detect.); RSV PCR Not Detected (Not Detect.); Rhino/Enterovirus PCR Detected (Not Detect.); SARS-CoV-2 PCR Not Detected (Not Detect.)
--- NOTE | 2022-03-02 09:10 | MHC.CM.PN ---
CM met with Patient at bedside and addressed IMM with her, providing her with the original and placing a copy on the chart. Patient lives with her 2 Daughters; one Daughter has Downs Syndrome and Patient is HER [employer] and her other Daughter, Lilian IS pATIENT'S HCP. Patient uses O[facility] at home PRN and [facility]. Patient has received Moderna/COVID VAX x2 AND HER pcp IS dr. Krish Cuevas.
[2022-03-02] MEDS: Nicotine 21 MG PATCH.TD24 TRANSDERMA (09:43)
[2022-03-02] MEDS: Letrozole 2.5 MG TABLET PO (09:43)
[2022-03-02 10:59] LABS: Free T4 (Free Thyroxine) 1.01 ng/dL (0.71-1.85)
--- NOTE | 2022-03-02 11:53 | P.PNIM_ITS ---
Subjective Subjective Date of Service: 03/02/22 Interval History: had a restless night, she feels related to IV steroids since had similar reaction in the past with use of steroids,, is coughing and bringing up thick ash phlegm no other overnight issues tele monitor showed normal sinus rhythm, denies chest pain, no palpitation. 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 awake alert x3, no acute distress.? HEENT PERRLA , anicteric sclerae Neck supple no JVD. CVS? regular rate rhythm, Respiratory lungs? coarse breath sounds, no rhonchi, no use of accessory muscles Gastrointestinal abdomen soft, nontender, bowel sounds audible, no guarding , no rigidity. Extremities no edema. Neuro nonfocal Skin no rash psych appropriate affect Objective Data Active Medications Acetaminophen (Acetaminophen 325 Mg Tablet) 650 mg PO Q6H PRN PRN Reason: Pain, Mild (Pain Scale 1-3) Albuterol/Ipratropium (Albuterol/Iprat 2.5/0.5mg 3 Ml Ampul.Neb) 3 ml INHALE RQ6H WHILE AWAKE [facility] [place] Last Admin: 03/02/22 08:11 Dose: 3 ml Documented By: DARBY Albuterol/Ipratropium (Albuterol/Iprat 2.5/0.5mg 3 Ml Ampul.Neb) 3 ml INHALE RQ4H PRN PRN Reason: sob Amitriptyline HCl (Amitriptyline Hcl 10 Mg Tablet) 10 mg PO BEDTIME [facility] [place] Last Admin: 03/01/22 21:13 Dose: 10 mg Documented By: OLGA-YINKA Cyclobenzaprine HCl (Cyclobenzaprine Hcl 5 Mg Tablet) 5 mg PO BEDTIME [facility] [place] Last Admin: 03/01/22 21:12 Dose: 5 mg Documented By: SHASHI Enoxaparin Sodium (Enoxaparin Sodium 40 Mg/0.4 Ml Syringe) 40 mg SUBCUT Q24H [facility] [place] Last Admin: 03/01/22 18:06 Dose: 40 mg Documented By: GUIDO Ceftriaxone Sodium 1 gm/ (Sodium Chloride) 50 mls @ 100 mls/hr IV Q24H [facility] [place] Azithromycin 500 mg/ Sodium (Chloride) 250 mls @ 125 mls/hr IV Q24H [facility] [place] Last Infusion: 03/02/22 00:14 Dose: 0 mls/hr Documented By: THERESA Letrozole (Letrozole 2.5 Mg Tablet) 2.5 mg PO DAILY [facility] [place] Last Admin: 03/02/22 09:43 Dose: 2.5 mg Documented By: KRYSTLE Melatonin (Melatonin 3 Mg Tablet) 3 mg PO BEDTIME PRN PRN Reason: Insomnia Methylprednisolone Sodium Succinate (Methylprednisolone Sod Succ 40 Mg/Ml Vial) 40 mg IVPUSH Q8H [facility] [place] Last Admin: 03/02/22 09:43 Dose: 40 mg Documented By: KRYSTLE Nicotine (Nicotine 21 Mg Patch.Td24) 21 mg TRANSDERMA DAILY [facility] [place] Last Admin: 03/02/22 09:43 Dose: 21 mg Documented By: KRYSTLE Nicotine Polacrilex (Nicotine Polacrilex 2 Mg Gum) 2 mg BUCCAL Q2H PRN PRN Reason: Nicotine Cravings Ondansetron HCl (Ondansetron Hcl 4 Mg/2 Ml Vial) 4 mg IVPUSH Q8H PRN PRN Reason: Nausea and Vomiting Pharmacy Consult (Consult Rx Perform Med Rec) 1 each MISCELLANE ONCE PRN PRN Reason: Consult order Sodium Chloride (0.9 % Sodium Chloride Flush 3 Ml Syringe) 3 ml IVFLUSH QSHIFT [facility] [place] Last Admin: 03/02/22 09:44 Dose: 3 ml Documented By: KRYSTLE Labs CBC & Chem 7: 03/02/22 07:06 03/01/22 13:37 Labs: Laboratory Results - last 24 hr 03/01/22 03/01/22 03/01/22 11:31 11:31 11:31 MCV MCH MCHC RDW Plt Count MPV Immature Gran % (Auto) 0.5 H Neut % (Auto) 79.6 H Lymph % (Auto) 5.2 L [place] % (Auto) 14.4 H Eos % (Auto) 0.1 Baso % (Auto) 0.2 Lymph # (Auto) 0.7 L [place] # (Auto) 1.9 H Eos # (Auto) 0.0 Baso # (Auto) 0.0 Abs Immat Gran (auto) 0.07 H Absolute Neuts (auto) 10.4 H Absolute Nucleated RBC 0.000 Nucleated RBC % (auto) 0.0 Smear Tech's Comments VERIFIED PT 16.1 H INR 1.4 H APTT 35.9 D-Dimer High Sensitivty 540 VBG pH VBG pCO2 VBG pO2 VBG HCO3 VBG O2 Saturation VBG Base Excess Anion Gap Estim Creat Clear Calc Estimated GFR Random Glucose Lactic Acid 2.7 H* Lactic Acid F/U @ 2Hr Calcium Magnesium Total Bilirubin Direct Bilirubin AST ALT Alkaline Phosphatase Troponin I High Sens B-Natriuretic Peptide Total Protein Albumin Lipase Procalcitonin TSH Free T4 Urine Color Urine Appearance Urine pH Ur Specific [place] Urine Protein Urine Glucose (UA) Urine Ketones Urine Blood Urine Nitrite Ur Leukocyte Esterase Urine RBC Urine WBC Ur Squamous Epith Cells Urine Bacteria Hyaline Casts Urine Mucus Respiratory Panel Vitale Adenovirus (Rapid PCR) B.pert (TEM-PCR) B.parapertussis DNA PCR C. pneumoniae DNA (PCR) Coronavirus OC43 (PCR) Coronavirus HKU1 (PCR) Coronavirus 229E (PCR) COVID-19 ([facility]) COVID-19 Clin Com Coronavirus NL63 (PCR) Human Metapneumovir PCR Influenza A (RT-PCR) Influenza B (RT-PCR) M. pneumoniae (PCR) Parainfluenza 1 (PCR) Parainfluenza 2 (PCR) Parainfluenza 3 (PCR) Parainfluenza 4 (PCR) RSV (PCR) Entero/Rhino (PCR) SARS-CoV-2 RNA (RT-PCR) 03/01/22 03/01/22 03/01/22 11:31 11:31 11:35 MCV MCH MCHC RDW Plt Count MPV Immature Gran % (Auto) Neut % (Auto) Lymph % (Auto) [place] % (Auto) Eos % (Auto) Baso % (Auto) Lymph # (Auto) [place] # (Auto) Eos # (Auto) Baso # (Auto) Abs Immat Gran (auto) Absolute Neuts (auto) Absolute Nucleated RBC Nucleated RBC % (auto) Smear Tech's Comments PT INR APTT D-Dimer High Sensitivty VBG pH VBG pCO2 VBG pO2 VBG HCO3 VBG O2 Saturation VBG Base Excess Anion Gap Estim Creat Clear Calc Estimated GFR Random Glucose Lactic Acid Lactic Acid F/U @ 2Hr Calcium Magnesium Total Bilirubin Direct Bilirubin AST ALT Alkaline Phosphatase Troponin I High Sens 19.9 H B-Natriuretic Peptide 80 Total Protein Albumin Lipase Procalcitonin 0.70 TSH Free T4 Urine Color Urine Appearance Urine pH Ur Specific [place] Urine Protein Urine Glucose (UA) Urine Ketones Urine Blood Urine Nitrite Ur Leukocyte Esterase Urine RBC Urine WBC Ur Squamous Epith Cells Urine Bacteria Hyaline Casts Urine Mucus Respiratory Panel Vitale Adenovirus (Rapid PCR) B.pert (TEM-PCR) B.parapertussis DNA PCR C. pneumoniae DNA (PCR) Coronavirus OC43 (PCR) Coronavirus HKU1 (PCR) Coronavirus 229E (PCR) COVID-19 ([facility]) Negative COVID-19 Clin Com See Note Coronavirus NL63 (PCR) Human Metapneumovir PCR Influenza A (RT-PCR) Influenza B (RT-PCR) M. pneumoniae (PCR) Parainfluenza 1 (PCR) Parainfluenza 2 (PCR) Parainfluenza 3 (PCR) Parainfluenza 4 (PCR) RSV (PCR) Entero/Rhino (PCR) SARS-CoV-2 RNA (RT-PCR) 03/01/22 03/01/22 03/01/22 11:37 13:37 14:22 MCV MCH MCHC RDW Plt Count MPV Immature Gran % (Auto) Neut % (Auto) Lymph % (Auto) [place] % (Auto) Eos % (Auto) Baso % (Auto) Lymph # (Auto) [place] # (Auto) Eos # (Auto) Baso # (Auto) Abs Immat Gran (auto) Absolute Neuts (auto) Absolute Nucleated RBC Nucleated RBC % (auto) Smear Tech's Comments PT INR APTT D-Dimer High Sensitivty VBG pH 7.34 VBG pCO2 46 VBG pO2 49 VBG HCO3 25 VBG O2 Saturation 73.0 VBG Base Excess -1.1 Anion Gap 19 Estim Creat Clear Calc 53.5 Estimated GFR 50 Random Glucose 123 H Lactic Acid Lactic Acid F/U @ 2Hr 0.9 Calcium 9.3 Magnesium 2.8 H Total Bilirubin 2.7 H Direct Bilirubin 1.4 H AST 23 ALT 16 Alkaline Phosphatase 106 Troponin I High Sens B-Natriuretic Peptide Total Protein 7.0 Albumin 3.8 Lipase < 4 L Procalcitonin TSH Free T4 Urine Color Urine Appearance Urine pH Ur Specific [place] Urine Protein Urine Glucose (UA) Urine Ketones Urine Blood Urine Nitrite Ur Leukocyte Esterase Urine RBC Urine WBC Ur Squamous Epith Cells Urine Bacteria Hyaline Casts Urine Mucus Respiratory Panel Vitale Adenovirus (Rapid PCR) B.pert (TEM-PCR) B.parapertussis DNA PCR C. pneumoniae DNA (PCR) Coronavirus OC43 (PCR) Coronavirus HKU1 (PCR) Coronavirus 229E (PCR) COVID-19 ([facility]) COVID-19 Clin Com Coronavirus NL63 (PCR) Human Metapneumovir PCR Influenza A (RT-PCR) Influenza B (RT-PCR) M. pneumoniae (PCR) Parainfluenza 1 (PCR) Parainfluenza 2 (PCR) Parainfluenza 3 (PCR) Parainfluenza 4 (PCR) RSV (PCR) Entero/Rhino (PCR) SARS-CoV-2 RNA (RT-PCR) 03/01/22 03/01/22 03/01/22 14:49 18:30 18:32 MCV MCH MCHC RDW Plt Count MPV Immature Gran % (Auto) Neut % (Auto) Lymph % (Auto) [place] % (Auto) Eos % (Auto) Baso % (Auto) Lymph # (Auto) [place] # (Auto) Eos # (Auto) Baso # (Auto) Abs Immat Gran (auto) Absolute Neuts (auto) Absolute Nucleated RBC Nucleated RBC % (auto) Smear Tech's Comments PT INR APTT D-Dimer High Sensitivty VBG pH VBG pCO2 VBG pO2 VBG HCO3 VBG O2 Saturation VBG Base Excess Anion Gap Estim Creat Clear Calc Estimated GFR Random Glucose Lactic Acid Lactic Acid F/U @ 2Hr Calcium Magnesium Total Bilirubin Direct Bilirubin AST ALT Alkaline Phosphatase Troponin I High Sens 55.0 H* D 39.9 H B-Natriuretic Peptide Total Protein Albumin Lipase Procalcitonin TSH Free T4 Urine Color Urine Appearance Urine pH Ur Specific [place] Urine Protein Urine Glucose (UA) Urine Ketones Urine Blood Urine Nitrite Ur Leukocyte Esterase Urine RBC Urine WBC Ur Squamous Epith Cells Urine Bacteria Hyaline Casts Urine Mucus Respiratory Panel Vitale See Note Adenovirus (Rapid PCR) Not Detected B.pert (TEM-PCR) Not Detected B.parapertussis DNA PCR Not Detected C. pneumoniae DNA (PCR) Not Detected Coronavirus OC43 (PCR) Not Detected Coronavirus HKU1 (PCR) Not Detected Coronavirus 229E (PCR) Not Detected COVID-19 ([facility]) COVID-19 Clin Com Coronavirus NL63 (PCR) Not Detected Human Metapneumovir PCR Not Detected Influenza A (RT-PCR) Not Detected Influenza B (RT-PCR) Not Detected M. pneumoniae (PCR) Not Detected Parainfluenza 1 (PCR) Not Detected Parainfluenza 2 (PCR) Not Detected Parainfluenza 3 (PCR) Not Detected Parainfluenza 4 (PCR) Not Detected RSV (PCR) Not Detected Entero/Rhino (PCR) Detected A SARS-CoV-2 RNA (RT-PCR) Not Detected 03/01/22 03/02/22 03/02/22 19:57 07:06 07:06 MCV 97.6 MCH 31.7 MCHC 32.5 RDW 15.3 Plt Count 159 L MPV 10.1 Immature Gran % (Auto) Neut % (Auto) Lymph % (Auto) [place] % (Auto) Eos % (Auto) Baso % (Auto) Lymph # (Auto) [place] # (Auto) Eos # (Auto) Baso # (Auto) Abs Immat Gran (auto) Absolute Neuts (auto) Absolute Nucleated RBC 0.000 Nucleated RBC % (auto) 0.0 Smear Tech's Comments PT INR APTT D-Dimer High Sensitivty VBG pH VBG pCO2 VBG pO2 VBG HCO3 VBG O2 Saturation VBG Base Excess Anion Gap Estim Creat Clear Calc Estimated GFR Random Glucose Lactic Acid Lactic Acid F/U @ 2Hr Calcium Magnesium Total Bilirubin 0.4 Direct Bilirubin 0.3 AST 16 ALT 16 Alkaline Phosphatase 98 Troponin I High Sens B-Natriuretic Peptide Total Protein 5.8 L Albumin 3.4 L Lipase Procalcitonin TSH 0.22 L Free T4 Urine Color DK YELLOW Urine Appearance CLEAR Urine pH 6.0 Ur Specific [place] 1.020 Urine Protein 1+ H Urine Glucose (UA) NEG Urine Ketones 5 Urine Blood TRACE Urine Nitrite NEG Ur Leukocyte Esterase NEG Urine RBC 5-9 H Urine WBC 1-4 Ur Squamous Epith Cells 1+ Urine Bacteria 1+ Hyaline Casts 1-4 Urine Mucus TRACE Respiratory Panel Vitale Adenovirus (Rapid PCR) B.pert (TEM-PCR) B.parapertussis DNA PCR C. pneumoniae DNA (PCR) Coronavirus OC43 (PCR) Coronavirus HKU1 (PCR) Coronavirus 229E (PCR) COVID-19 ([facility]) COVID-19 Clin Com Coronavirus NL63 (PCR) Human Metapneumovir PCR Influenza A (RT-PCR) Influenza B (RT-PCR) M. pneumoniae (PCR) Parainfluenza 1 (PCR) Parainfluenza 2 (PCR) Parainfluenza 3 (PCR) Parainfluenza 4 (PCR) RSV (PCR) Entero/Rhino (PCR) SARS-CoV-2 RNA (RT-PCR) 03/02/22 09:40 MCV MCH MCHC RDW Plt Count MPV Immature Gran % (Auto) Neut % (Auto) Lymph % (Auto) [place] % (Auto) Eos % (Auto) Baso % (Auto) Lymph # (Auto) [place] # (Auto) Eos # (Auto) Baso # (Auto) Abs Immat Gran (auto) Absolute Neuts (auto) Absolute Nucleated RBC Nucleated RBC % (auto) Smear Tech's Comments PT INR APTT D-Dimer High Sensitivty VBG pH VBG pCO2 VBG pO2 VBG HCO3 VBG O2 Saturation VBG Base Excess Anion Gap Estim Creat Clear Calc Estimated GFR Random Glucose Lactic Acid Lactic Acid F/U @ 2Hr Calcium Magnesium Total Bilirubin Direct Bilirubin AST ALT Alkaline Phosphatase Troponin I High Sens B-Natriuretic Peptide Total Protein Albumin Lipase Procalcitonin TSH Free T4 1.01 Urine Color Urine Appearance Urine pH Ur Specific [place] Urine Protein Urine Glucose (UA) Urine Ketones Urine Blood Urine Nitrite Ur Leukocyte Esterase Urine RBC Urine WBC Ur Squamous Epith Cells Urine Bacteria Hyaline Casts Urine Mucus Respiratory Panel [place] Adenovirus (Rapid PCR) B.pert (TEM-PCR) B.parapertussis DNA PCR C. pneumoniae DNA (PCR) Coronavirus OC43 (PCR) Coronavirus HKU1 (PCR) Coronavirus 229E (PCR) COVID-19 ([facility]) COVID-19 Clin Com Coronavirus NL63 (PCR) Human Metapneumovir PCR Influenza A (RT-PCR) Influenza B (RT-PCR) M. pneumoniae (PCR) Parainfluenza 1 (PCR) Parainfluenza 2 (PCR) Parainfluenza 3 (PCR) Parainfluenza 4 (PCR) RSV (PCR) Entero/Rhino (PCR) SARS-CoV-2 RNA (RT-PCR) Assessment and Plan (1) Tobacco use disorder: Status: Acute (2) Atrial fibrillation with rapid ventricular response: Status: Acute (3) Pneumonia: Status: Acute (4) Acidosis, lactic: Status: Acute (5) Acute exacerbation of chronic obstructive pulmonary disease: Status: Acute Plan 61-year-old female with past medical history of COPD on 2 L of home oxygen as needed, history of breast cancer/adrenal cancer, with history of continues tobacco use smoke 2 packs of cigarettes per day presented with symptoms of generalized weakness, myalgias fever chills nausea vomiting shortness of breath hypoxia. ?new onset atrial fibrillation with RVR transient episode will review EKG strip with Cardiology ?no prior history of atrial fibrillation, patient converted to normal sinus rhythm after IV Cardizem boluses? with drop in blood pressure ?patient denies chest pain, no palpitation ?will hold off on anticoagulation since had transient atrial fibrillation , will discuss further treatment plan with Cardiology ?TSH 0.22 will check T4 follow echo await cardiology input ?elevated troponin /flat likely related to atrial fibrillation patient denies chest pain, no palpitation , follow echo ?acute? on chronic hypoxic respiratory failure due to COPD exacerbation/ multi focal pneumonia ?COVID negative respiratory viral panel positive for rhino Legionella and strep pneumo antigen pending ? continue scheduled and as needed updraft treatment, IV ceftriaxone and azit hromycin wean IV steroids due to restlessness ? continue oxygen support and wean as tolerated ? cough medication/ incentive spirometry ? lactic acidosis likely related to hypoxia/ use of updraft treatment not?due to sepsis, resolved ?tobacco use disorder continue nicotine patch and nicotine gum patient is motivated to quit smoking ?history of breast/adrenal tumor ?continue letrozole, will transition to home dose of prednisone upon discharge ?elevated bilirubin, trending down no abdominal pain normal liver enzymes will follow ?DVT prophylaxis with Lovenox ?code status full code ?patient? need continued inpatient? stay due to multi focal pneumonia with hypoxic respiratory failure requiring IV antibiotics and IV steroids. Quality Stroke Does the patient have a stroke diagnosis?: No VTE Prior VTE?: No VTE Risk Level:: Medical - moderate - high VTE Device Contraindication: Treatment Not Indicated VTE Drug Contraindication: N/A - Med Ordered
--- NOTE | 2022-03-02 12:20 | PM.CNCAR ---
History of Present Illness History of Present Illness Date of Service: 03/02/22 Chief complaint: Multi lobar pneumonia/ Atrial fibrillation withRVR Narrative: 62-year-old female presenting with nausea and respiratory distress and diagnosed with pneumonia. She was noted to be in atrial fibrillation with rapid ventricular response on admission. She denied any palpitations. She is saying no chest pain. Her breathing is improving currently. Has not had palpitations before. Does not have any background of hypertension, diabetes or previous vascular disease. No history of stroke. Her chads Vasc is 1. Telemetry currently showing that she is back in sinus rhythm. Overall doing well. [facility] Past Medical History Medical History Adrenal cancer Breast cancer COPD (chronic obstructive pulmonary disease) Social History Social History Household Members: Children Household Members Other:: Daughter Housing: House Do you presently have visiting nurse or other home services: No Patient Tobacco Use Status: Current everyday Tobacco user Tobacco use type: Cigarette Cigarette Packs Per Day: 1.5 Cigarettes Per Day: 30.0 Years Smoked: 30 Advance Directives Date on File: 03/02/22 service: No Current occupational status: employed Meds Allergies Allergy/AdvReac Type Severity Reaction Status Date / Time Sulfa (Sulfonamide Allergy Anaphylaxis Verified 03/01/22 11:22 Antibiotics) Active Medications: Current Medications Acetaminophen (Acetaminophen 325 Mg Tablet) 650 mg PO Q6H PRN PRN Reason: Pain, Mild (Pain Scale 1-3) Albuterol/Ipratropium (Albuterol/Iprat 2.5/0.5mg 3 Ml Ampul.Neb) 3 ml INHALE RQ6H WHILE AWAKE [facility] Last Admin: 03/02/22 08:11 Dose: 3 ml Albuterol/Ipratropium (Albuterol/Iprat 2.5/0.5mg 3 Ml Ampul.Neb) 3 ml INHALE RQ4H PRN PRN Reason: sob Amitriptyline HCl (Amitriptyline Hcl 10 Mg Tablet) 10 mg PO BEDTIME [facility] Last Admin: 03/01/22 21:13 Dose: 10 mg Cyclobenzaprine HCl (Cyclobenzaprine Hcl 5 Mg Tablet) 5 mg PO BEDTIME [facility] Last Admin: 03/01/22 21:12 Dose: 5 mg Enoxaparin Sodium (Enoxaparin Sodium 40 Mg/0.4 Ml Syringe) 40 mg SUBCUT Q24H [facility] Last Admin: 03/01/22 18:06 Dose: 40 mg Guaifenesin/Codeine Phosphate (Guaifen/Codeine Sf 200/20/10ml 10 Ml Liquid) 5 ml PO Q8H [facility] Azithromycin 500 mg/ Sodium (Chloride) 250 mls @ 125 mls/hr IV Q24H [facility] Last Infusion: 03/02/22 00:14 Dose: Infused Ceftriaxone Sodium 1 gm/ (Sodium Chloride) 50 mls @ 100 mls/hr IV Q24H [facility] Letrozole (Letrozole 2.5 Mg Tablet) 2.5 mg PO DAILY [facility] Last Admin: 03/02/22 09:43 Dose: 2.5 mg Melatonin (Melatonin 3 Mg Tablet) 3 mg PO BEDTIME PRN PRN Reason: Insomnia Nicotine (Nicotine 21 Mg Patch.Td24) 21 mg TRANSDERMA DAILY [facility] Last Admin: 03/02/22 09:43 Dose: 21 mg Nicotine Polacrilex (Nicotine Polacrilex 2 Mg Gum) 2 mg BUCCAL Q2H PRN PRN Reason: Nicotine Cravings Ondansetron HCl (Ondansetron Hcl 4 Mg/2 Ml Vial) 4 mg IVPUSH Q8H PRN PRN Reason: Nausea and Vomiting Pharmacy Consult (Consult Rx Perform Med Rec) 1 each MISCELLANE ONCE PRN PRN Reason: Consult order Prednisone (Prednisone 10 Mg Tablet) 10 mg PO DAILY [facility] Sodium Chloride (0.9 % Sodium Chloride Flush 3 Ml Syringe) 3 ml IVFLUSH QSHIFT [facility] Last Admin: 03/02/22 09:44 Dose: 3 ml Home Medications Medication Instructions Recorded Confirmed Last Taken Type albuterol sulfate 90 mcg/actuation 1 inh inhalation Q4H PRN Wheezing 03/01/22 03/01/22 02/28/22 History aerosol inhaler amitriptyline 10 mg tablet 10 mg PO BEDTIME 03/01/22 03/01/22 02/28/22 History cyclobenzaprine 5 mg tablet 5 mg PO BEDTIME 03/01/22 03/01/22 02/28/22 History fluticasone propionate 220 1 puff PO BID 03/01/22 03/01/22 02/28/22 History mcg/actuation HFA aerosol inhaler (Flovent HFA) fluticasone propionate 50 1 spray intranasal BID PRN Allergy 03/01/22 03/01/22 02/28/22 History mcg/actuation nasal Symptoms spray,suspension ipratropium 0.5 mg-albuterol 3 mg 3 ml inhalation BID 03/01/22 03/01/22 02/28/22 History (2.5 mg base)/3 mL nebulization soln letrozole 2.5 mg tablet 2.5 mg PO DAILY 03/01/22 03/01/22 03/01/22 History prednisone 5 mg tablet 1 tab PO DAILY 03/01/22 03/01/22 02/28/22 History Physical Exam Vital Signs: Vital Signs: Last Vital Signs Temp 97.0 F 03/02/22 11:57 Pulse 93 03/02/22 11:57 Resp 16 03/02/22 11:57 BP 160/81 H 03/02/22 11:57 Pulse Ox 98 03/02/22 11:57 O2 Del Method 03/02/22 11:57 O2 Flow Rate 5 03/02/22 11:57 Oxygen Flow Rate 2 03/01/22 11:25 BMI result Body Mass Index 33.9 GENERAL APPEARANCE: in no acute distress, pleasant. NECK: no carotid bruit, no jugular venous distention. SKIN: no suspicious lesions, warm and dry. HEART: no murmurs, regular rate and rhythm. LUNGS: clear to auscultation bilaterally. ABDOMEN: soft, nontender. EXTREMITIES: no edema. PERIPHERAL PULSES: equal. NEUROLOGIC: No gross deficits, AAO X 3 Objective Labs and Meds Result diagrams: 03/02/22 07:06 03/01/22 13:37 Lab results: Laboratory Results - last 24 hr 03/01/22 03/01/22 03/01/22 11:31 11:31 11:35 WBC RBC Hgb Hct MCV MCH MCHC RDW Plt Count MPV Absolute Nucleated RBC Nucleated RBC % (auto) Sodium Potassium Chloride Carbon Dioxide Anion Gap BUN Creatinine Estim Creat Clear Calc Estimated GFR Random Glucose Lactic Acid F/U @ 2Hr Calcium Magnesium Total Bilirubin Direct Bilirubin AST ALT Alkaline Phosphatase Troponin I High Sens B-Natriuretic Peptide 80 Total Protein Albumin Lipase Procalcitonin 0.70 TSH Free T4 Urine Color Urine Appearance Urine pH Ur Specific [place] Urine Protein Urine Glucose (UA) Urine Ketones Urine Blood Urine Nitrite Ur Leukocyte Esterase Urine RBC Urine WBC Ur Squamous Epith Cells Urine Bacteria Hyaline Casts Urine Mucus Respiratory Panel Vitale Adenovirus (Rapid PCR) B.pert (TEM-PCR) B.parapertussis DNA PCR C. pneumoniae DNA (PCR) Coronavirus OC43 (PCR) Coronavirus HKU1 (PCR) Coronavirus 229E (PCR) COVID-19 ([facility]) Negative COVID-19 Clin Com See Note Coronavirus NL63 (PCR) Human Metapneumovir PCR Influenza A (RT-PCR) Influenza B (RT-PCR) M. pneumoniae (PCR) Parainfluenza 1 (PCR) Parainfluenza 2 (PCR) Parainfluenza 3 (PCR) Parainfluenza 4 (PCR) RSV (PCR) Entero/Rhino (PCR) SARS-CoV-2 RNA (RT-PCR) 03/01/22 03/01/22 03/01/22 13:37 14:22 14:49 WBC RBC Hgb Hct MCV MCH MCHC RDW Plt Count MPV Absolute Nucleated RBC Nucleated RBC % (auto) Sodium 135 Potassium 4.5 Chloride 99 Carbon Dioxide 22 Anion Gap 19 BUN 24 H Creatinine 1.11 Estim Creat Clear Calc 53.5 Estimated GFR 50 Random Glucose 123 H Lactic Acid F/U @ 2Hr 0.9 Calcium 9.3 Magnesium 2.8 H Total Bilirubin 2.7 H Direct Bilirubin 1.4 H AST 23 ALT 16 Alkaline Phosphatase 106 Troponin I High Sens 55.0 H* D B-Natriuretic Peptide Total Protein 7.0 Albumin 3.8 Lipase < 4 L Procalcitonin TSH Free T4 Urine Color Urine Appearance Urine pH Ur Specific [place] Urine Protein Urine Glucose (UA) Urine Ketones Urine Blood Urine Nitrite Ur Leukocyte Esterase Urine RBC Urine WBC Ur Squamous Epith Cells Urine Bacteria Hyaline Casts Urine Mucus Respiratory Panel Vitale Adenovirus (Rapid PCR) B.pert (TEM-PCR) B.parapertussis DNA PCR C. pneumoniae DNA (PCR) Coronavirus OC43 (PCR) Coronavirus HKU1 (PCR) Coronavirus 229E (PCR) COVID-19 (KASSY) COVID-19 Clin Com Coronavirus NL63 (PCR) Human Metapneumovir PCR Influenza A (RT-PCR) Influenza B (RT-PCR) M. pneumoniae (PCR) Parainfluenza 1 (PCR) Parainfluenza 2 (PCR) Parainfluenza 3 (PCR) Parainfluenza 4 (PCR) RSV (PCR) Entero/Rhino (PCR) SARS-CoV-2 RNA (RT-PCR) 03/01/22 03/01/22 03/01/22 18:30 18:32 19:57 WBC RBC Hgb Hct MCV MCH MCHC RDW Plt Count MPV Absolute Nucleated RBC Nucleated RBC % (auto) Sodium Potassium Chloride Carbon Dioxide Anion Gap BUN Creatinine Estim Creat Clear Calc Estimated GFR Random Glucose Lactic Acid F/U @ 2Hr Calcium Magnesium Total Bilirubin Direct Bilirubin AST ALT Alkaline Phosphatase Troponin I High Sens 39.9 H B-Natriuretic Peptide Total Protein Albumin Lipase Procalcitonin TSH Free T4 Urine Color DK YELLOW Urine Appearance CLEAR Urine pH 6.0 Ur Specific [place] 1.020 Urine Protein 1+ H Urine Glucose (UA) NEG Urine Ketones 5 Urine Blood TRACE Urine Nitrite NEG Ur Leukocyte Esterase NEG Urine RBC 5-9 H Urine WBC 1-4 Ur Squamous Epith Cells 1+ Urine Bacteria 1+ Hyaline Casts 1-4 Urine Mucus TRACE Respiratory Panel Vitale See Note Adenovirus (Rapid PCR) Not Detected B.pert (TEM-PCR) Not Detected B.parapertussis DNA PCR Not Detected C. pneumoniae DNA (PCR) Not Detected Coronavirus OC43 (PCR) Not Detected Coronavirus HKU1 (PCR) Not Detected Coronavirus 229E (PCR) Not Detected COVID-19 ([facility]ASSY) COVID-19 Clin Com Coronavirus NL63 (PCR) Not Detected Human Metapneumovir PCR Not Detected Influenza A (RT-PCR) Not Detected Influenza B (RT-PCR) Not Detected M. pneumoniae (PCR) Not Detected Parainfluenza 1 (PCR) Not Detected Parainfluenza 2 (PCR) Not Detected Parainfluenza 3 (PCR) Not Detected Parainfluenza 4 (PCR) Not Detected RSV (PCR) Not Detected Entero/Rhino (PCR) Detected A SARS-CoV-2 RNA (RT-PCR) Not Detected 03/02/22 03/02/22 03/02/22 07:06 07:06 09:40 WBC 5.9 RBC 3.75 L Hgb 11.9 L Hct 36.6 L MCV 97.6 MCH 31.7 MCHC 32.5 RDW 15.3 Plt Count 159 L MPV 10.1 Absolute Nucleated RBC 0.000 Nucleated RBC % (auto) 0.0 Sodium Potassium Chloride Carbon Dioxide Anion Gap BUN Creatinine Estim Creat Clear Calc Estimated GFR Random Glucose Lactic Acid F/U @ 2Hr Calcium Magnesium Total Bilirubin 0.4 Direct Bilirubin 0.3 AST 16 ALT 16 Alkaline Phosphatase 98 Troponin I High Sens B-Natriuretic Peptide Total Protein 5.8 L Albumin 3.4 L Lipase Procalcitonin TSH 0.22 L Free T4 1.01 Urine Color Urine Appearance Urine pH Ur Specific [place] Urine Protein Urine Glucose (UA) Urine Ketones Urine Blood Urine Nitrite Ur Leukocyte Esterase Urine RBC Urine WBC Ur Squamous Epith Cells Urine Bacteria Hyaline Casts Urine Mucus Respiratory Panel Vitale Adenovirus (Rapid PCR) B.pert (TEM-PCR) B.parapertussis DNA PCR C. pneumoniae DNA (PCR) Coronavirus OC43 (PCR) Coronavirus HKU1 (PCR) Coronavirus 229E (PCR) COVID-19 ([facility]) COVID-19 Clin Com Coronavirus NL63 (PCR) Human Metapneumovir PCR Influenza A (RT-PCR) Influenza B (RT-PCR) M. pneumoniae (PCR) Parainfluenza 1 (PCR) Parainfluenza 2 (PCR) Parainfluenza 3 (PCR) Parainfluenza 4 (PCR) RSV (PCR) Entero/Rhino (PCR) SARS-CoV-2 RNA (RT-PCR) Imaging Radiologist's impression: Impressions Chest CTA 03/01/22 15:30 IMPRESSION: Limited evaluation for pulmonary embolism due to artifact from respiratory motion. No large or central pulmonary embolism. Evaluation of smaller segmental and subsegmental pulmonary arteries is limited due to motion artifact. Right middle lobe consolidation and atelectasis. Smaller consolidation and atelectasis in the posterior basal right lower lobe and inferior segment of the lingula. VTE: negative Assessment and Plan (1) Atrial fibrillation with rapid ventricular response: Status: Acute (2) Pneumonia: Qualifiers: Laterality: right Lung location: lower lobe of lung Pneumonia type: due to unspecified organism Qualified Code(s): J18.9 - Pneumonia, unspecified organism Status: Acute Plan 62-year-old female who is presenting for pneumonia and AFib with RVR. She has reverted back to sinus rhythm. She is currently not anticoagulation candidate because her chads Vasc is 1. Can consider starting her metoprolol 25 mg twice a day. She will need follow-up as outpatient. We will arrange some monitoring for her to see if she has recurrent atrial fibrillation. She had no symptoms reported with atrial fibrillation. Thank you for allowing me to participate in the care of your patient. Please feel free to contact me if you have any questions. Procedures Date of Service Date of Service: 03/02/22
[2022-03-02] MEDS: guaiFEN/Codeine SF 200/20/10ML 10 ML LIQUID 5 ML PO ×2 (14:41→19:47)
[2022-03-02] MEDS: cefTRIAXone sodium 1 GM in 0.9 % Sodium Chloride 50 ML IV (14:42)
[2022-03-02] MEDS: Enoxaparin Sodium 40 MG/0.4 ML SYRINGE SUBCUT (17:41)
[2022-03-02] MEDS: Azithromycin 500 MG in 0.9 % Sodium Chloride 250 ML 125 MG IV (17:41)
[2022-03-02] MEDS: Amitriptyline HCl 10 MG TABLET PO (19:47)
[2022-03-02] MEDS: Cyclobenzaprine HCl 5 MG TABLET PO (19:47)
[2022-03-03] VITALS (8 sets, daily range): BP systolic 117–136; BP diastolic 61–84; PULSE 68–102; RESP 16–20; TEMP 36.1–37.2; O2SAT 90–97
[2022-03-03] MEDS: Albuterol/Iprat 2.5/0.5MG 3 ML AMPUL.NEB INHALE (08:18)
[2022-03-03] MEDS: 0.9 % Sodium Chloride Flush 3 ML SYRINGE IVFLUSH ×3 (11:20→19:53)
[2022-03-03] MEDS: Nicotine 21 MG PATCH.TD24 TRANSDERMA (11:21)
[2022-03-03] MEDS: predniSONE 10 MG TABLET PO ×2 (11:22→17:23)
[2022-03-03] MEDS: guaiFEN/Codeine SF 200/20/10ML 10 ML LIQUID 5 ML PO (11:22)
[2022-03-03] MEDS: Letrozole 2.5 MG TABLET PO (11:22)
[2022-03-03] MEDS: Acetaminophen 325 MG TABLET 650 MG PO (11:28)
--- NOTE | 2022-03-03 12:35 | MHC.CM.PN ---
Female 62 No discharge today. Per MD rounds. DP home with oxygen provided by [facility]. Family will provide transportation home.
[2022-03-03] MEDS: cefTRIAXone sodium 1 GM in 0.9 % Sodium Chloride 50 ML IV (13:10)
--- NOTE | 2022-03-03 13:49 | HO.PM.IMPN ---
Subjective Subjective Date of Service: 03/03/22 Interval History: feeling better, still short of breath, and bringing up phlegm, denies fever, chills, no acute issues overnight, slept well. 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 awake alert x3, no acute distress.? Neck supple no JVD. CVS? regular rate rhythm, Respiratory lungs? Diminished breath sounds, no rhonchi, no use of accessory muscles Gastrointestinal abdomen soft, nontender, bowel sounds audible, no guarding , no rigidity. Extremities no edema. Neuro nonfocal Skin no rash psych appropriate affect Objective Data Active Medications Acetaminophen (Acetaminophen 325 Mg Tablet) 650 mg PO Q6H PRN PRN Reason: Pain, Mild (Pain Scale 1-3) Last Admin: 03/03/22 11:28 Dose: 650 mg Documented By: JAMEEL Albuterol/Ipratropium (Albuterol/Iprat 2.5/0.5mg 3 Ml Ampul.Neb) 3 ml INHALE RQ6H WHILE AWAKE [facility] Last Admin: 03/03/22 08:18 Dose: 3 ml Documented By: MARY BETH Albuterol/Ipratropium (Albuterol/Iprat 2.5/0.5mg 3 Ml Ampul.Neb) 3 ml INHALE RQ4H PRN PRN Reason: sob Amitriptyline HCl (Amitriptyline Hcl 10 Mg Tablet) 10 mg PO BEDTIME [facility] Last Admin: 03/02/22 19:47 Dose: 10 mg Documented By: SEBASTIAN Cyclobenzaprine HCl (Cyclobenzaprine Hcl 5 Mg Tablet) 5 mg PO BEDTIME [facility] Last Admin: 03/02/22 19:47 Dose: 5 mg Documented By: SEBASTIAN Enoxaparin Sodium (Enoxaparin Sodium 40 Mg/0.4 Ml Syringe) 40 mg SUBCUT Q24H [facility] Last Admin: 03/02/22 17:41 Dose: 40 mg Documented By: BRIGIDA Guaifenesin/Codeine Phosphate (Guaifen/Codeine Sf 200/20/10ml 10 Ml Liquid) 5 ml PO Q8H [facility] Last Admin: 03/03/22 11:22 Dose: 5 ml Documented By: JAMEEL Azithromycin 500 mg/ Sodium (Chloride) 250 mls @ 125 mls/hr IV Q24H [facility] Last Infusion: 03/02/22 19:43 Dose: 0 mls/hr Documented By: SEBASTIAN Ceftriaxone Sodium 1 gm/ (Sodium Chloride) 50 mls @ 100 mls/hr IV Q24H [facility] Last Admin: 03/03/22 13:10 Dose: 100 mls/hr Documented By: JAMEEL Letrozole (Letrozole 2.5 Mg Tablet) 2.5 mg PO DAILY [facility] Last Admin: 03/03/22 11:22 Dose: 2.5 mg Documented By: JAMEEL Melatonin (Melatonin 3 Mg Tablet) 3 mg PO BEDTIME PRN PRN Reason: Insomnia Nicotine (Nicotine 21 Mg Patch.Td24) 21 mg TRANSDERMA DAILY [facility] Last Admin: 03/03/22 11:21 Dose: 21 mg Documented By: JAMEEL Nicotine Polacrilex (Nicotine Polacrilex 2 Mg Gum) 2 mg BUCCAL Q2H PRN PRN Reason: Nicotine Cravings Ondansetron HCl (Ondansetron Hcl 4 Mg/2 Ml Vial) 4 mg IVPUSH Q8H PRN PRN Reason: Nausea and Vomiting Pharmacy Consult (Consult Rx Perform Med Rec) 1 each MISCELLANE ONCE PRN PRN Reason: Consult order Prednisone (Prednisone 10 Mg Tablet) 10 mg PO DAILY [facility] Last Admin: 03/03/22 11:22 Dose: 10 mg Documented By: JAMEEL Sodium Chloride (0.9 % Sodium Chloride Flush 3 Ml Syringe) 3 ml IVFLUSH QSHIFT [facility] Last Admin: 03/03/22 11:20 Dose: 3 ml Documented By: JAMEEL Labs CBC & Chem 7: 03/02/22 07:06 03/01/22 13:37 Microbiology Microbiology Results: Microbiology 03/01/22 12:11 Blood Culture - Preliminary Blood - Venous No growth after 24 hours. 03/01/22 11:43 Blood Culture - Preliminary Blood - Venous No growth after 24 hours. Assessment and Plan (1) Tobacco use disorder: Status: Acute (2) Atrial fibrillation with rapid ventricular response: Status: Acute (3) Pneumonia: Status: Acute (4) Acidosis, lactic: Status: Acute (5) Acute exacerbation of chronic obstructive pulmonary disease: Status: Acute Plan 61-year-old female with past medical history of COPD on 2 L of home oxygen as needed, history of breast cancer/adrenal cancer, with history of continues tobacco use smoke 2 packs of cigarettes per day presented with symptoms of generalized weakness, myalgias fever chills nausea vomiting shortness of breath hypoxia. ?new onset atrial fibrillation with RVR transient episode converted to normal sinus rhythm after IV Cardizem boluses drop in blood pressure ?no prior history of atrial fibrillation, patient remains in normal sinus rhythm, no chest pain no palpitation chads vascular score of 1 not a candidate for anticoagulation ?TSH 0.22, normal T4 seen by cardiologists Dr. Roa recommend to place on low-dose beta zeke and recommend outpatient Holter monitor ?elevated troponin /flat likely related to atrial fibrillation patient denies chest pain, no palpitation , follow echo ?acute? on chronic hypoxic respiratory failure due to COPD exacerbation/ multi focal pneumonia ?COVID negative respiratory viral panel positive for rhino Legionella and strep pneumo antigen pending continues oral steroid ?continue scheduled and as needed updraft treatment, IV ceftriaxone and azithromycin continue oxygen support and wean as tolerated ?cough medication/ incentive spirometry ? lactic acidosis likely related to hypoxia/ use of updraft treatment not?due to sepsis, resolved ?tobacco use disorder continue nicotine patch and nicotine gum patient is motivated to quit smoking ?history of breast/adrenal tumor ?continue letrozole, will transition to home dose of prednisone upon discharge ?elevated bilirubin, trending down no abdominal pain normal liver enzymes will follow ?DVT prophylaxis with Lovenox ?code status full code ?patient? need continued inpatient? stay due to multi focal pneumonia with hypoxic respiratory failure requiring IV antibiotics oxygen support and steroids. Quality Stroke Does the patient have a stroke diagnosis?: No VTE Prior VTE?: No VTE Risk Level:: Medical - moderate - high VTE Device Contraindication: Treatment Not Indicated VTE Drug Contraindication: N/A - Med Ordered
[2022-03-03] MEDS: Azithromycin 500 MG in 0.9 % Sodium Chloride 250 ML 125 MG IV (17:22)
[2022-03-03] MEDS: Enoxaparin Sodium 40 MG/0.4 ML SYRINGE SUBCUT (17:23)
[2022-03-03] MEDS: Amitriptyline HCl 10 MG TABLET PO (19:52)
[2022-03-03] MEDS: Cyclobenzaprine HCl 5 MG TABLET PO (19:53)
[2022-03-03] MEDS: guaiFEN/Codeine SF 200/20/10ML 10 ML LIQUID PO (19:54)
[2022-03-04] VITALS (7 sets, daily range): BP systolic 108–135; BP diastolic 56–89; PULSE 79–96; RESP 18–20; TEMP 36.4–37; O2SAT 93–97
[2022-03-04] MEDS: guaiFEN/Codeine SF 200/20/10ML 10 ML LIQUID PO ×3 (05:25→20:16)
[2022-03-04] MEDS: Albuterol/Iprat 2.5/0.5MG 3 ML AMPUL.NEB INHALE ×3 (08:25→19:50)
[2022-03-04] MEDS: 0.9 % Sodium Chloride Flush 3 ML SYRINGE IVFLUSH ×3 (08:39→20:16)
[2022-03-04] MEDS: Nicotine 21 MG PATCH.TD24 TRANSDERMA (08:39)
[2022-03-04] MEDS: Letrozole 2.5 MG TABLET PO (08:41)
[2022-03-04] MEDS: predniSONE 10 MG TABLET PO ×2 (08:41→17:37)
[2022-03-04] MEDS: Metoprolol Succinate ER 25 MG TAB.ER.24H PO (08:41)
--- NOTE | 2022-03-04 11:53 | P.PNIM_ITS ---
Subjective Subjective Date of Service: 03/04/22 Interval History: Feeling better less shortness of breath bringing up large amount of light yellow phlegm, complaining of generalized body ache no fevers no chills, oxygenation improving on 4 L of OxyMask Review of Systems [employer] no headache no dizziness general no fevers, no chills CVS no chest pain, no palpitation Review of Systems: Yes all other systems are reviewed and are negative Physical Exam Vital Signs: Vital Signs: Last Vital Signs Temp 97.6 F 03/04/22 08:00 Pulse 87 03/04/22 08:27 Resp 18 03/04/22 08:27 BP 135/64 03/04/22 08:00 Pulse Ox 96 03/04/22 08:00 O2 Del Method 03/04/22 03:33 O2 Flow Rate 4 03/04/22 03:33 Oxygen Flow Rate 2 03/01/22 11:25 BMI result Body Mass Index 33.9 Const: Other: General? awake melissa rt x3, no acute di stress.? Neck supp le no JVD. CVS? re gular rate rhythm, Respiratory lungs ?? Diminished ana th sounds, no rhon chi, no use of acc essory muscles Gas trointestinal abdo men soft, nontende r, bowel sounds au dible, no guarding , no rigidity. Ex tremities no edema . Neuro nonfocal S kin no rash psych appropriate affect Objective Data Active Medications Acetaminophen (Acetaminophen 325 Mg Tablet) 650 mg PO Q6H PRN PRN Reason: Pain, Mild (Pain Scale 1-3) Last Admin: 03/03/22 11:28 Dose: 650 mg Documented By: JAMEEL Albuterol/Ipratropium (Albuterol/Iprat 2.5/0.5mg 3 Ml Ampul.Neb) 3 ml INHALE RQ6H WHILE AWAKE [facility] Last Admin: 03/04/22 08:25 Dose: 3 ml Documented By: MARY BETH Albuterol/Ipratropium (Albuterol/Iprat 2.5/0.5mg 3 Ml Ampul.Neb) 3 ml INHALE RQ4H PRN PRN Reason: sob Amitriptyline HCl (Amitriptyline Hcl 10 Mg Tablet) 10 mg PO BEDTIME [facility] Last Admin: 03/03/22 19:52 Dose: 10 mg Documented By: MONET Cyclobenzaprine HCl (Cyclobenzaprine Hcl 5 Mg Tablet) 5 mg PO BEDTIME [facility] Last Admin: 03/03/22 19:53 Dose: 5 mg Documented By: MONET Enoxaparin Sodium (Enoxaparin Sodium 40 Mg/0.4 Ml Syringe) 40 mg SUBCUT Q24H [facility] Last Admin: 03/03/22 17:23 Dose: 40 mg Documented By: JAMEEL Guaifenesin/Codeine Phosphate (Guaifen/Codeine Sf 200/20/10ml 10 Ml Liquid) 10 ml PO Q8H [facility] Last Admin: 03/04/22 05:25 Dose: 10 ml Documented By: MONET Azithromycin 500 mg/ Sodium (Chloride) 250 mls @ 125 mls/hr IV Q24H [facility] Last Infusion: 03/03/22 19:56 Dose: 0 mls/hr Documented By: MONET Ceftriaxone Sodium 1 gm/ (Sodium Chloride) 50 mls @ 100 mls/hr IV Q24H [facility] Last Infusion: 03/03/22 13:53 Dose: 0 mls/hr Documented By: JAMEEL Letrozole (Letrozole 2.5 Mg Tablet) 2.5 mg PO DAILY [facility] Last Admin: 03/04/22 08:41 Dose: 2.5 mg Documented By: SHADIA Melatonin (Melatonin 3 Mg Tablet) 3 mg PO BEDTIME PRN PRN Reason: Insomnia Metoprolol Succinate (Metoprolol Succinate Er 25 Mg Tab.Er.24h) 25 mg PO DAILY [facility]; Protocol Last Admin: 03/04/22 08:41 Dose: 25 mg Documented By: SHADIA Nicotine (Nicotine 21 Mg Patch.Td24) 21 mg TRANSDERMA DAILY [facility] Last Admin: 03/04/22 08:39 Dose: 21 mg Documented By: SHADAI Nicotine Polacrilex (Nicotine Polacrilex 2 Mg Gum) 2 mg BUCCAL Q2H PRN PRN Reason: Nicotine Cravings Ondansetron HCl (Ondansetron Hcl 4 Mg/2 Ml Vial) 4 mg IVPUSH Q8H PRN PRN Reason: Nausea and Vomiting Pharmacy Consult (Consult Rx Perform Med Rec) 1 each MISCELLANE ONCE PRN PRN Reason: Consult order Prednisone (Prednisone 10 Mg Tablet) 10 mg PO BIDWM [facility] Last Admin: 03/04/22 08:41 Dose: 10 mg Documented By: SHADIA Sodium Chloride (0.9 % Sodium Chloride Flush 3 Ml Syringe) 3 ml IVFLUSH QSHIFT [facility] Last Admin: 03/04/22 08:39 Dose: 3 ml Documented By: SHADIA Labs CBC & Chem 7: 03/02/22 07:06 03/01/22 13:37 Microbiology Microbiology Results: Microbiology 03/01/22 12:11 Blood Culture - Preliminary Blood - Venous No growth after 48 hours. 03/01/22 11:43 Blood Culture - Preliminary Blood - Venous No growth after 48 hours. Assessment and Plan (1) Tobacco use disorder: Status: Acute (2) Atrial fibrillation with rapid ventricular response: Status: Acute (3) Pneumonia: Status: Acute (4) Acidosis, lactic: Status: Acute (5) Acute exacerbation of chronic obstructive pulmonary disease: Status: Acute Plan 61-year-old female with past medical history of COPD on 2 L of home oxygen as needed, history of breast cancer/adrenal cancer, with history of continues tobacco use smoke 2 packs of cigarettes per day presented with symptoms of generalized weakness, myalgias fever chills nausea vomiting shortness of breath hypoxia. ?new onset atrial fibrillation with RVR transient episode converted to normal sinus rhythm after IV Cardizem boluses ?no prior history of atrial fibrillation, patient remains in normal sinus rhythm, no chest pain, no palpitation, chads vascular score of 1 not a candidate for anticoagulation ?TSH 0.22, normal T4 seen by cardiologists Dr. Roa he recommended low-dose beta zeke and outpatient Holter monitor patient started on Toprol-XL 25 mg daily ?elevated troponin /flat likely related to atrial fibrillation patient denies chest pain, no palpitation , follow echo ?acute? on chronic hypoxic respiratory failure due to COPD exacerbation/ multi focal pneumonia/ entero/rhinovirus ?COVID negative respiratory viral panel positive for rhino continues prednisone 10 mg b.i.d., on low dose since patient developed restlessness with high dose steroid ?continue scheduled and as needed updraft treatment, IV ceftriaxone and azithromycin day 4/5 continue oxygen support and wean as tolerated, patient not on home oxygen ?cough medication/ incentive spirometry ? lactic acidosis likely related to hypoxia/ use of updraft treatment not?due to sepsis ?tobacco use disorder continue nicotine patch and nicotine gum patient is motivated to quit smoking ?history of breast/adrenal tumor ?continue letrozole, will transition to home dose of prednisone upon discharge ?elevated bilirubin, normalized, no abdominal pain ?DVT prophylaxis with Lovenox ?code status full code ?patient? need continued inpatient? stay due to multi focal pneumonia with hypoxic respiratory failure requiring IV antibiotics oxygen support and steroids. Quality Stroke Does the patient have a stroke diagnosis?: No VTE Prior VTE?: No VTE Risk Level:: Medical - moderate - high VTE Device Contraindication: Treatment Not Indicated VTE Drug Contraindication: N/A - Med Ordered
[2022-03-04] MEDS: cefTRIAXone sodium 1 GM in 0.9 % Sodium Chloride 50 ML IV (13:17)
[2022-03-04] MEDS: Enoxaparin Sodium 40 MG/0.4 ML SYRINGE SUBCUT (17:37)
[2022-03-04] MEDS: Azithromycin 500 MG in 0.9 % Sodium Chloride 250 ML 125 MG IV (17:37)
--- NOTE | 2022-03-04 18:39 | PC.NURSE ---
Alert and oriented. Denies pain or discomfort. VSS, afebrile, no acute resp. distress noted. Continues on IV ABT/rhinovirus, no adverse reactions noted. Occasional non productive cough persists. Droplet precautions maintained. Resting in bed at this time. Will continue to monitor and treat per plan of care.
[2022-03-04] MEDS: Amitriptyline HCl 10 MG TABLET PO (20:16)
[2022-03-04] MEDS: Cyclobenzaprine HCl 5 MG TABLET PO (20:16)
[2022-03-05] VITALS (10 sets, daily range): BP systolic 108–136; BP diastolic 56–74; PULSE 76–90; RESP 16–21; TEMP 35.8–37.1; O2SAT 95–99
[2022-03-05] MEDS: guaiFEN/Codeine SF 200/20/10ML 10 ML LIQUID PO ×3 (04:27→19:36)
[2022-03-05] MEDS: Albuterol/Iprat 2.5/0.5MG 3 ML AMPUL.NEB INHALE ×3 (08:13→19:18)
[2022-03-05] MEDS: Nicotine 21 MG PATCH.TD24 TRANSDERMA (10:12)
[2022-03-05] MEDS: Metoprolol Succinate ER 25 MG TAB.ER.24H PO (10:13)
[2022-03-05] MEDS: predniSONE 10 MG TABLET PO ×2 (10:13→18:00)
[2022-03-05] MEDS: Letrozole 2.5 MG TABLET PO (10:13)
[2022-03-05 10:14] LABS: Procalcitonin 0.25 ng/mL
[2022-03-05] MEDS: 0.9 % Sodium Chloride Flush 3 ML SYRINGE IVFLUSH ×3 (10:14→19:36)
--- NOTE | 2022-03-05 11:25 | P.PNIM_ITS ---
Subjective Subjective Date of Service: 03/05/22 Interval History: no fever breathing improved cough improved in NSR Review of Systems Review of Systems: Yes all other systems are reviewed and are negative Physical Exam Vital Signs: Vital Signs: Last Vital Signs Temp 97.5 F 03/05/22 08:00 Pulse 77 03/05/22 08:14 Resp 18 03/05/22 08:14 BP 125/70 03/05/22 08:00 Pulse Ox 96 03/05/22 08:00 O2 Del Method 03/05/22 08:00 O2 Flow Rate 5 03/05/22 08:00 Oxygen Flow Rate 2 03/01/22 11:25 BMI result Body Mass Index 33.9 Gen: in no acute distress HEENT: sclera anicteric, moist mucus membranes Neck: supple Lungs: diminished bilaterally Heart: regular rate and rhythm, no murmurs Abd: soft, non-tender, non-distended Ext: no edema Skin: warm/well-perfused Neuro: alert and oriented x3, no focal findings Psych: appropriate affect Objective Data Active Medications Acetaminophen (Acetaminophen 325 Mg Tablet) 650 mg PO Q6H PRN PRN Reason: Pain, Mild (Pain Scale 1-3) Last Admin: 03/03/22 11:28 Dose: 650 mg Documented By: JAMEEL Albuterol/Ipratropium (Albuterol/Iprat 2.5/0.5mg 3 Ml Ampul.Neb) 3 ml INHALE RQ6H WHILE AWAKE [facility] Last Admin: 03/05/22 08:13 Dose: 3 ml Documented By: GUILLERMO Albuterol/Ipratropium (Albuterol/Iprat 2.5/0.5mg 3 Ml Ampul.Neb) 3 ml INHALE RQ4H PRN PRN Reason: sob Amitriptyline HCl (Amitriptyline Hcl 10 Mg Tablet) 10 mg PO BEDTIME [facility] Last Admin: 03/04/22 20:16 Dose: 10 mg Documented By: MONET Cyclobenzaprine HCl (Cyclobenzaprine Hcl 5 Mg Tablet) 5 mg PO BEDTIME [facility] Last Admin: 03/04/22 20:16 Dose: 5 mg Documented By: MONET Enoxaparin Sodium (Enoxaparin Sodium 40 Mg/0.4 Ml Syringe) 40 mg SUBCUT Q24H [facility] Last Admin: 03/04/22 17:37 Dose: 40 mg Documented By: SHADIA Guaifenesin/Codeine Phosphate (Guaifen/Codeine Sf 200/20/10ml 10 Ml Liquid) 10 ml PO Q8H [facility] Last Admin: 03/05/22 04:27 Dose: 10 ml Documented By: ANTOIC Azithromycin 500 mg/ Sodium (Chloride) 250 mls @ 125 mls/hr IV Q24H [facility] Last Infusion: 03/04/22 20:05 Dose: 0 mls/hr Documented By: ANTOIC Ceftriaxone Sodium 1 gm/ (Sodium Chloride) 50 mls @ 100 mls/hr IV Q24H [facility] Last Infusion: 03/04/22 14:26 Dose: 0 mls/hr Documented By: SHADIA Letrozole (Letrozole 2.5 Mg Tablet) 2.5 mg PO DAILY [facility] Last Admin: 03/05/22 10:13 Dose: 2.5 mg Documented By: SWAPNA Melatonin (Melatonin 3 Mg Tablet) 3 mg PO BEDTIME PRN PRN Reason: Insomnia Metoprolol Succinate (Metoprolol Succinate Er 25 Mg Tab.Er.24h) 25 mg PO DAILY [facility]; Protocol Last Admin: 03/05/22 10:13 Dose: 25 mg Documented By: SWAPNA Nicotine (Nicotine 21 Mg Patch.Td24) 21 mg TRANSDERMA DAILY [facility] Last Admin: 03/05/22 10:12 Dose: 21 mg Documented By: SWAPNA Nicotine Polacrilex (Nicotine Polacrilex 2 Mg Gum) 2 mg BUCCAL Q2H PRN PRN Reason: Nicotine Cravings Ondansetron HCl (Ondansetron Hcl 4 Mg/2 Ml Vial) 4 mg IVPUSH Q8H PRN PRN Reason: Nausea and Vomiting Pharmacy Consult (Consult Rx Perform Med Rec) 1 each MISCELLANE ONCE PRN PRN Reason: Consult order Prednisone (Prednisone 10 Mg Tablet) 10 mg PO BIDWM [facility] Last Admin: 03/05/22 10:13 Dose: 10 mg Documented By: SWAPNA Sodium Chloride (0.9 % Sodium Chloride Flush 3 Ml Syringe) 3 ml IVFLUSH QSHIFT [facility] Last Admin: 03/05/22 10:14 Dose: 3 ml Documented By: HO.N-EDLEK Labs CBC & Chem 7: 03/02/22 07:06 03/01/22 13:37 Labs: Laboratory Results - last 24 hr 03/05/22 08:50 Procalcitonin 0.25 Assessment and Plan (1) Tobacco use disorder: Status: Acute (2) Atrial fibrillation with rapid ventricular response: Status: Acute (3) Pneumonia: Status: Acute (4) Acidosis, lactic: Status: Acute (5) Acute exacerbation of chronic obstructive pulmonary disease: Status: Acute Plan hospital d#5 62yo F with COPD on 2L home O2 prn, hx breast + adrenal CA, tobacco abuse presented with weakenss, myalgias, fever, chills, N/V, dyspnea admitted for hypoxia due to COPD exacerbation/pneumonia had transient episode of AF/RVR # new-onset pAF/RVR - converted to NSR after IV diltiazem remains in NSR - [id number] 1, no AC indicated - Cardiology consulted, started metoprolol succinate 25 mg daily, f/u as outpt for Holter monitor - TTE tomorrow # Tn-I elevatin - flat, likely related to AF; no chest pain # acute/chronic hypoxic resp failure - wean O2 as tolerated; home O2 eval for consideration of Oxymask at home # COPD exacerbation - prednisone 10 mg bid [home dose 5 mg daily] - nebulizer treatments # PNA - d#5/5 ceftriaxone + azithromycin, PCT low # lactic acidosis - likely bronchodilator + hypoxia effect, not septic # tobacco abuse - continue combination NRT # hx breast CA - continue letrozole # hx adrenal CA - transition to home dose of prednisone 5 mg daily on discharge # elevated bilirubin - normalized; Gilbert's? no abd pain # VTE ppx: LMWH In my clinical judgment, the patient requires continued hospitalization for the following reasons: IV ABX, TTE, hypoxia Quality Stroke Does the patient have a stroke diagnosis?: No VTE Prior VTE?: No VTE Risk Level:: Medical - moderate - high VTE Device Contraindication: Treatment Not Indicated VTE Drug Contraindication: N/A - Med Ordered
[2022-03-05] MEDS: cefTRIAXone sodium 1 GM in 0.9 % Sodium Chloride 50 ML IV (13:10)
[2022-03-05] MEDS: Enoxaparin Sodium 40 MG/0.4 ML SYRINGE SUBCUT (18:00)
[2022-03-05] MEDS: Azithromycin 500 MG in 0.9 % Sodium Chloride 250 ML 125 MG IV (18:01)
[2022-03-05] MEDS: Cyclobenzaprine HCl 5 MG TABLET PO (19:36)
[2022-03-05] MEDS: Amitriptyline HCl 10 MG TABLET PO (19:36)
[2022-03-06 03:32] VITALS: BP 117/59; PULSE 72; RESP 18; TEMP 36.6; O2SAT 95
--- NOTE | 2022-03-06 07:00 | CA_ITS ---
Transthoracic Echocardiogram Patient (Last, First, Middle): Patt Lezama A Gender: Female Date of : 1960 Age: 62 Procedure Date: 03/06/2022 Procedure Type: Transthoracic Echocardiogram Location: [facility] [place] Height: 157.48 cm Weight: 83.92 kg BSA: 1.85 m2 Heart Rate: bpm BP: 117 / 59 mmHg Orchestrator: JAMISON Flores MD: Nicolasa Snowden MD Sales And Production Manager: Ty Pérez MD Symptoms: af Study Quality: Fair ECG Rhythm: Sinus Conclusions: - 1. Normal LV systolic function with impaired relaxation filling pattern 2. Normal cardiac valvular Doppler 3. Normal RV systolic pressure 4. No gross pericardial effusion Findings Left Ventricle Normal left ventricular size, thickness, and systolic function. The visually estimated ejection fraction is between 65-70%. Spectral Doppler is indicative of an impaired relaxation filling pattern. E/E prime ratio is between 8 and 15 consistent with indeterminate filling pressures. Right Ventricle Normal right ventricular cavity size and systolic function. Atria The left atrium is likely dilated. There is lipomatous hypertrophy of the interatrial septum. There is no evidence of interatrial shunt. The right atrium is normal in size. Aortic Valve The aortic valve was not well visualized. There is no aortic valve stenosis. There is no aortic valve regurgitation. Mitral Valve Likely normal mitral valve structure and function. There is trace mitral valve regurgitation. There is no mitral valve stenosis. Pulmonic Valve The pulmonic valve was not well visualized. Tricuspid Valve Likely normal tricuspid valve structure and function. There is trace tricuspid valve regurgitation. The right ventricular systolic pressure is normal. The right ventricular systolic pressure is 23 mmHg. Normal right atrial pressure. There is no evidence of pulmonary hypertension. Great Vessels All visible segments of the aorta are normal in size. The pulmonary artery was not well visualized. Venous The inferior vena cava is normal in size and collapses greater than 50% with inspiration. Pericardium/Pleural There is no evidence of pericardial effusion. Prior Study Comparison No prior study available for comparison. Measurements 2D Linear Measurements IVSd: 1.17 0.6-0.9/0.6-1.0 cm LVIDd: 4.54 3.9-5.3/4.2-5.9 cm LVIDd Index: 2.45 2.4-3.2/2.2-3.1 cm/m2 LVIDs: 2.73 2.0-3.6 cm LVPWd: 1.11 0.7-1.1 cm LA Diam: 4.00 2.7-3.8/3.0-4.0 cm LAIDs Index: 2.16 1.5-2.3 cm/m2 LV Mass: 232.58 67-162/88-224 g LV Mass Index: 125.72 43-95/49-115 g/m2 LVOT Diam: 2.10 3.0+(-)1.3 cm 2D Systolic Function EF 4C: 68.30 >55% EF 2C: 62.30 >55% EF BiP: 65.10 >55% Mitral Valve MV Pk E: 0.91 MV PK A: 0.88 MV Decel Time: 212.00 E/A: 1.00 E'Lateral: 8.81 E'Medial: 6.31 E/E' Med: 14.40 E/E' Lat: 10.30 PHT: 62.00 MVA PHT: 3.55 Decel Limestone: 4.29 Aortic Valve AoV Pk Erik: 1.58 AoV Mn Erik: 1.07 AoV VTI: 0.32 AoV Pk Grad: 10.00 Aov Mn Grad: 5.00 MELVA Cont.VTI: 2.80 LVOT LVOT Pk Erik: 1.23 LVOT Mn Erik: 0.79 LVOT VTI: 0.26 LVOT Pk Grad: 6.00 LVOT Mn Grad: 3.00 LVOT Diam: 2.10 LVOT Area: 3.46 Diastolic Function MV Pk E: 0.91 MV Pk A: 0.88 E/A: 1.00 E'Medial: 6.31 E/E' Med: 14.40 E' Laterial: 8.81 E/E' Lat: 10.30 Right Ventricle TAPSE (mm): 23.50 TVS' Erik: 17.80 Tricuspid Valve TR Pk Erik: 2.23 TR Pk Grad: 20.00 RA Press: 3.00 RVSP: 23.00 Great Vessels Aorta Sinus of Valsalva: 3.23 2.0-3.5 cm Ao Asc: 3.30 2.1-3.4 cm Ao Arch: 3.20 Updated in Other Vendor System with Status of Final Ty Pérez MD electronically signed on 03/06/2022 3:41:42 PM with status of Final
[2022-03-06 07:54] VITALS: BP 128/74; PULSE 80; RESP 18; TEMP 36.5; O2SAT 96
[2022-03-06] MEDS: Albuterol/Iprat 2.5/0.5MG 3 ML AMPUL.NEB INHALE (08:23)
[2022-03-06 08:26] VITALS: PULSE 86; RESP 20; O2SAT 88
[2022-03-06] MEDS: Nicotine 21 MG PATCH.TD24 TRANSDERMA (08:34)
[2022-03-06] MEDS: Metoprolol Succinate ER 25 MG TAB.ER.24H PO (08:34)
[2022-03-06] MEDS: predniSONE 10 MG TABLET PO (08:34)
[2022-03-06] MEDS: Letrozole 2.5 MG TABLET PO (08:34)
[2022-03-06] MEDS: 0.9 % Sodium Chloride Flush 3 ML SYRINGE IVFLUSH (08:34)
[2022-03-06 11:27] VITALS: BP 114/69; PULSE 86; RESP 18; TEMP 36.4; O2SAT 96
[2022-03-06] MEDS: guaiFEN/Codeine SF 200/20/10ML 10 ML LIQUID PO (11:56)
[2022-03-06] MEDS: cefTRIAXone sodium 1 GM in 0.9 % Sodium Chloride 50 ML IV (11:56)
--- NOTE | 2022-03-06 12:14 | PM.DS ---
DS: Providers Provider Date of Service: 03/06/22 Date of admission: 03/01/22 17:01 Date of discharge: 03/06/22 Primary care physician: Eugenie Berg MD Consults: 03/01/22 17:34 Consult to Cardiology Routine Consulting Provider: John Roa Reason for consultation: atfib Has provider been notified: No DS: Diagnosis Discharge Diagnosis (1) Tobacco use disorder: Status: Acute (2) Atrial fibrillation with rapid ventricular response: Status: Acute (3) Pneumonia: Status: Acute (4) Acidosis, lactic: Status: Acute (5) Acute exacerbation of chronic obstructive pulmonary disease: Status: Acute (6) Paroxysmal atrial fibrillation: Status: Acute (7) Acute on chronic respiratory failure with hypoxemia: Status: Acute (8) Rhinovirus infection: Status: Acute DS: Summary Hospital Course Hospital Course: from admission history and physical by Paul Houser hospitalist , 03/01/22: 61-year-old female patient with past medical history significant for COPD on 2 L of home oxygen as needed for shortness of breath, history of breast cancer and adrenal cancer on daily prednisone presented to [facility] with 4-5 days history of generalized weakness, body ache associated with subjective fevers chills decreased appetite nausea vomiting and shortness of breath patient did to home COVID test that were negative, she noted her oxygenation was 84-86% last night therefore use 5 L of oxygen but since symptoms were progressing she came to the ED in the ED patient was noted to be in atrial fibrillation with rapid ventricular response therefore she was treated with Cardizem IV boluses subsequently she converted to normal sinus rhythm and noted to have low blood pressure therefore treated with IV fluid blood pressure improved heart rate? remains in sinus since stable at present, for further workup showed mildly elevated WBC count, elevated? bilirubin with normal liver enzymes, troponin elevated at 55 chest x-ray showed no acute infiltrate COVID-19 negative, CTA chest showed no evidence of? large or central PE, evaluation of smaller segmental and subsegmental pulmonary artery was limited due to motion artifact, patient noted to have right middle lobe? and posterior basis consolidation and atelectasis, as well as ?consolidation/atelectasis in inferior segment of lingula, patient of being admitted for continued monitoring and treatment. This 62yo F with COPD on 2L home O2 prn, hx breast + adrenal CA, and tobacco abuse presented with weakness, myalgias, fever, chills, nausea, vomiting, and dyspnea. He was admitted for hypoxia due to COPD exacerbation/pneumonia complicated by a transient episode of AF/RVR. Hospital course by problem: # new-onset pAF/RVR - She converted to NSR after a dose of IV diltiazem and remained in NSR for the rest of hospitalization. Cardiology was consulted and she was started on metoprolol succinate 25 mg daily for rate control. Given [id number] of 1, no anticoagulation was indicated. Echocardiogram showed normal LVEF but impaired relaxation. She will follow up with Cardiology as an outpatient for Holter monitoring. # Tn-I elevation - Flat, likely related to AF; no chest pain and no anginal changes; no wall motion abnormalities on echocardiogram. # acute/chronic hypoxic respiratory failure - Given mouth-breathing, she was switched to Oxymizer to use 2L at home. # COPD exacerbation - Treated with prednisone 10 mg bid; discharged on taper of 5 mg bid x 3 days, then to resume 5 mg daily, her usual home dose for adrenal insufficiency. # pneumonia - Treated with 5 days of ceftriaxone + azithromycin. Blood cultures negative. Respiratory PCR positive for rhinovirus. ?# lactic acidosis - Likely bronchodilator + hypoxia effect. Not septic. # Tobacco abuse - Prescribed combination NRT and counseled to quit smoking. Time Spent with Patient Time attestation: Total time spent providing and/or coordinating discharge services: 35 Discharge coordination time: Greater than 30 minutes Quality: Safe Use of Opioids Does Pt have an Active Cancer Diagnosis on the Problem List?: No Quality: Stroke Does the patient have a stroke diagnosis?: No Physical Exam Vital Signs: Vital Signs: Last Vital Signs Temp 97.5 F 03/06/22 11:27 Pulse 86 03/06/22 11:27 Resp 18 03/06/22 11:27 BP 114/69 03/06/22 11:27 Pulse Ox 96 03/06/22 11:27 O2 Del Method 03/06/22 11:27 O2 Flow Rate 3 03/06/22 11:27 Oxygen Flow Rate 2 03/01/22 11:25 BMI result Body Mass Index 33.9 Gen: in no acute distress HEENT: sclera anicteric, moist mucus membranes Neck: supple Lungs: diminished bilaterally Heart: regular rate and rhythm, no murmurs Abd: soft, non-tender, non-distended Ext: no edema Skin: warm/well-perfused Neuro: alert and oriented x3, no focal findings Psych: appropriate affect DS: Data Data Completed and Pending Completed studies during hospitalization [Text1]: Laboratory Results WBC 5.9 X10*3/uL (4.8-10.8) 03/02/22 07:06 RBC 3.75 X10*6/uL (4.20-5.50) L 03/02/22 07:06 Hgb 11.9 g/dl (12.0-16.0) L 03/02/22 07:06 Hct 36.6 % (37.0-47.0) L 03/02/22 07:06 MCV 97.6 fL (80.0-98.0) 03/02/22 07:06 MCH 31.7 pg (27.0-33.0) 03/02/22 07:06 MCHC 32.5 g/dl (31.0-35.0) 03/02/22 07:06 RDW 15.3 % (11.0-16.0) 03/02/22 07:06 Plt Count 159 X10*3/uL (160-400) L 03/02/22 07:06 MPV 10.1 fL (9.4-12.3) 03/02/22 07:06 Immature Gran % (Auto) 0.5 % (0.0-0.4) H 03/01/22 11:31 Neut % (Auto) 79.6 % (45-73) H 03/01/22 11:31 Lymph % (Auto) 5.2 % (20-40) L 03/01/22 11:31 [place] % (Auto) 14.4 % (2-11) H 03/01/22 11:31 Eos % (Auto) 0.1 % (0-4) 03/01/22 11:31 Baso % (Auto) 0.2 % (0-2) 03/01/22 11:31 Lymph # (Auto) 0.7 X10*3/uL (1.2-4.9) L 03/01/22 11:31 [place] # (Auto) 1.9 X10*3/uL (0.1-1.2) H 03/01/22 11:31 Eos # (Auto) 0.0 X10*3/uL (0.0-0.4) 03/01/22 11:31 Baso # (Auto) 0.0 X10*3/uL (0.0-0.2) 03/01/22 11:31 Abs Immat Gran (auto) 0.07 X10*3/uL (0.00-0.03) H 03/01/22 11:31 Absolute Neuts (auto) 10.4 x10*3/uL (2.0-8.3) H 03/01/22 11:31 Absolute Nucleated RBC 0.000 X10*3/uL (0.0-0.012) 03/02/22 07:06 Nucleated RBC % (auto) 0.0 /100WBC (0.0-0.2) 03/02/22 07:06 Smear Tech's Comments VERIFIED 03/01/22 11:31 PT 16.1 SEC (9.9-13.0) H 03/01/22 11:31 INR 1.4 (0.9-1.1) H 03/01/22 11:31 APTT 35.9 SEC (24.1-38.0) 03/01/22 11:31 D-Dimer High Sensitivty 540 NG/ML 03/01/22 11:31 VBG pH 7.34 (7.32-7.43) 03/01/22 11:37 VBG pCO2 46 mmHg 03/01/22 11:37 VBG pO2 49 mmHg 03/01/22 11:37 VBG HCO3 25 mmol/L (22-26) 03/01/22 11:37 VBG O2 Saturation 73.0 % 03/01/22 11:37 VBG Base Excess -1.1 mmol/L 03/01/22 11:37 Sodium 135 mmol/L (135-145) 03/01/22 13:37 Potassium 4.5 mmol/L (3.3-5.1) 03/01/22 13:37 Chloride 99 mmol/L (96-108) 03/01/22 13:37 Carbon Dioxide 22 mmol/L (22-29) 03/01/22 13:37 Anion Gap 19 (12-20) 03/01/22 13:37 BUN 24 mg/dL (9-16) H 03/01/22 13:37 Creatinine 1.11 mg/dL (0.5-1.4) 03/01/22 13:37 Estim Creat Clear Calc 53.5 03/01/22 13:37 Estimated GFR 50 03/01/22 13:37 Random Glucose 123 mg/dL (60-115) H 03/01/22 13:37 Lactic Acid 2.7 mmol/L (0.5-2.0) H* 03/01/22 11:31 Lactic Acid F/U @ 2Hr 0.9 mmol/L (0.5-2.0) 03/01/22 14:22 Calcium 9.3 mg/dL (8.4-10.2) 03/01/22 13:37 Magnesium 2.8 mg/dL (1.6-2.6) H 03/01/22 13:37 Total Bilirubin 0.4 mg/dL (0.0-1.0) 03/02/22 07:06 Direct Bilirubin 0.3 mg/dL (0.0-0.5) 03/02/22 07:06 AST 16 U/L (5-31) 03/02/22 07:06 ALT 16 U/L (0-31) 03/02/22 07:06 Alkaline Phosphatase 98 U/L (39-117) 03/02/22 07:06 Troponin I High Sens 39.9 ng/L (<3.5-17.0) H 03/01/22 18:30 B-Natriuretic Peptide 80 pg/mL (<100) 03/01/22 11:31 Total Protein 5.8 g/dL (6.5-8.0) L 03/02/22 07:06 Albumin 3.4 g/dL (3.5-5.0) L 03/02/22 07:06 Lipase < 4 U/L (8-78) L 03/01/22 13:37 Procalcitonin 0.25 ng/mL 03/05/22 08:50 TSH 0.22 uIU/mL (0.32-4.0) L 03/02/22 07:06 Free T4 1.01 ng/dL (0.71-1.85) 03/02/22 09:40 Urine Color DK YELLOW 03/01/22 19:57 Urine Appearance CLEAR 03/01/22 19:57 Urine pH 6.0 (5.0-8.0) 03/01/22 19:57 Ur Specific [place] 1.020 (1.005-1.025) 03/01/22 19:57 Urine Protein 1+ MG/DL (NEG-TRACE) H 03/01/22 19:57 Urine Glucose (UA) NEG MG/DL (NEG) 03/01/22 19:57 Urine Ketones 5 MG/DL (NEG) 03/01/22 19:57 Urine Blood TRACE (NEG) 03/01/22 19:57 Urine Nitrite NEG (NEG) 03/01/22 19:57 Ur Leukocyte Esterase NEG (NEG) 03/01/22 19:57 Urine RBC 5-9 /HPF (0) H 03/01/22 19:57 Urine WBC 1-4 /HPF (0-4) 03/01/22 19:57 Ur Squamous Epith Cells 1+ /LPF 03/01/22 19:57 Urine Bacteria 1+ /LPF 03/01/22 19:57 Hyaline Casts 1-4 /LPF 03/01/22 19:57 Urine Mucus TRACE /LPF 03/01/22 19:57 Respiratory Panel Vitale See Note 03/01/22 18:32 Adenovirus (Rapid PCR) Not Detected (Not Detect.) 03/01/22 18:32 B.pert (TEM-PCR) Not Detected (Not Detect.) 03/01/22 18:32 B.parapertussis DNA PCR Not Detected (Not Detect.) 03/01/22 18:32 C. pneumoniae DNA (PCR) Not Detected (Not Detect.) 03/01/22 18:32 Coronavirus OC43 (PCR) Not Detected (Not Detect.) 03/01/22 18:32 Coronavirus HKU1 (PCR) Not Detected (Not Detect.) 03/01/22 18:32 Coronavirus 229E (PCR) Not Detected (Not Detect.) 03/01/22 18:32 COVID-19 (KASSY) Negative (Negative) 03/01/22 11:35 COVID-19 Clin Com See Note 03/01/22 11:35 Coronavirus NL63 (PCR) Not Detected (Not Detect.) 03/01/22 18:32 Human Metapneumovir PCR Not Detected (Not Detect.) 03/01/22 18:32 Influenza A (RT-PCR) Not Detected (Not Detect.) 03/01/22 18:32 Influenza B (RT-PCR) Not Detected (Not Detect.) 03/01/22 18:32 M. pneumoniae (PCR) Not Detected (Not Detect.) 03/01/22 18:32 Parainfluenza 1 (PCR) Not Detected (Not Detect.) 03/01/22 18:32 Parainfluenza 2 (PCR) Not Detected (Not Detect.) 03/01/22 18:32 Parainfluenza 3 (PCR) Not Detected (Not Detect.) 03/01/22 18:32 Parainfluenza 4 (PCR) Not Detected (Not Detect.) 03/01/22 18:32 RSV (PCR) Not Detected (Not Detect.) 03/01/22 18:32 Entero/Rhino (PCR) Detected (Not Detect.) A 03/01/22 18:32 SARS-CoV-2 RNA (RT-PCR) Not Detected (Not Detect.) 03/01/22 18:32 Impressions Chest X-Ray 03/01/22 11:40 IMPRESSION: Small right pleural effusion and/or infiltrate/atelectasis. Chest CTA 03/01/22 15:30 IMPRESSION: Limited evaluation for pulmonary embolism due to artifact from respiratory motion. No large or central pulmonary embolism. Evaluation of smaller segmental and subsegmental pulmonary arteries is limited due to motion artifact. Right middle lobe consolidation and atelectasis. Smaller consolidation and atelectasis in the posterior basal right lower lobe and inferior segment of the lingula. VTE: negative TTE 03/06/22 1.? Normal LV systolic function with impaired relaxation ? ? ? filling pattern? 2.? Normal cardiac valvular Doppler? 3.? Normal RV systolic pressure? 4.? No gross pericardial effusion? Labs on day of discharge: Preliminary micro results at discharge 03/01/22 12:11 Blood Culture - Preliminary Blood - Venous No growth after 48 hours. 03/01/22 11:43 Blood Culture - Preliminary Blood - Venous No growth after 48 hours. Discharge Plan Discharge Patient Disposition: Home, Self-Care Discharge Diagnosis: # new-onset AF # acute/chronic hypoxic respiratory failure # COPD exacerbation # pneumonia # tobacco abuse Referrals: John Roa MD [Physician] - 1 Week Eugenie Berg MD [Primary Care Provider] - 1 Week Discharge Medications: New nicotine 21 mg/24 hr Patch 24 Hour 21 mg transdermal DAILY Qty: 28 0RF nicotine (polacrilex) 2 mg Gum 2 mg buccal Q2H PRN (Reason: Nicotine Cravings) Qty: 100 0RF metoprolol succinate 25 mg Tablet Extended Release 24 Hr 25 mg PO DAILY Qty: 30 0RF Protocol: Hold for SBP/HR < HOLD for SBP < : 90 HOLD for HR < : 60 prednisone 5 mg tablet 5 mg PO BID Qty: 6 0RF Rx Instructions: Take 5 mg bid for 3 days, then resume usual dosing of 5 mg daily Continued ipratropium-albuterol 0.5 mg-3 mg(2.5 mg base)/3 mL solution for nebulization 3 ml inhalation BID prednisone 5 mg tablet 1 tab PO DAILY amitriptyline 10 mg tablet 10 mg PO BEDTIME fluticasone propionate [Flovent HFA] 220 mcg/actuation HFA aerosol inhaler 1 puff PO BID letrozole 2.5 mg tablet 2.5 mg PO DAILY albuterol sulfate 90 mcg/actuation HFA aerosol inhaler 1 inh inhalation Q4H PRN (Reason: Wheezing) fluticasone propionate 50 mcg/actuation spray,suspension 1 spray intranasal BID PRN (Reason: Allergy Symptoms) cyclobenzaprine 5 mg tablet 5 mg PO BEDTIME Discharge Orders: Discharge Order (Routine); Ordered 03/06/22 Ordered By: Nicolasa Snowden Diet: advance to usual diet Activity on Discharge: As tolerated Stand Alone Forms: Patient Portal Discharge page Care Plan Goals: heart health lung health Health Concerns: # new-onset AF # acute/chronic hypoxic respiratory failure # COPD exacerbation # pneumonia # tobacco abuse Plan of Treatment: # new-onset AF: take metoprolol succinate 25 mg daily to control rate if recurs. [place] [facility] [place] for Holter monitoring. no anticoagulation indicated. # acute/chronic hypoxic respiratory failure: home oxygen, 2 liters via Oxymizer # COPD exacerbation: prednisone 5 mg twice daily for 3 days, then resume 5 mg daily. continue home inhalers/nebulizer treatments. # pneumonia: completed 5 days of antibiotics in the hospital. # tobacco abuse: quit smoking; use nicotine patch and gum to help you quit Assessment: See Discharge Summary Patient Instructions: A-fib (Atrial Fibrillation) (DC)
--- NOTE | 2022-03-06 14:04 | MHC.CM.PN ---
PT TO DC HOME TODAY WITH NO SERVICES
--- NOTE | 2022-03-06 16:16 | PC.NURSE ---
1550-IV removed. 1610-discharge instructions given to pt. Questions answered. 1620-pt discharged via wheelchair. pt's brother with pt for ride home. pt belongings with pt upon discharge.
== END 2022-03-06 16:20 | disposition home or self-care (01) | DRG 193 ==
LOC: HO.ED 12:33 → HO.EDOVER 17:26 → HO.IMC 03-02 03:44
PROVIDERS: Admitting Provider Hospitalist; Emergency Provider Emergency Medicine; PCP Family Medicine; Visit Provider Family Medicine
DX: J18.9 Pneumonia, unspecified organism (principal); J96.21 Acute and chronic respiratory failure with hypoxia; J44.0 Chronic obstructive pulmonary disease with (acute) lower respiratory infection; J44.1 Chronic obstructive pulmonary disease with (acute) exacerbation; E87.2 Acidosis; C74.90 Malignant neoplasm of unspecified part of unspecified adrenal gland; J98.11 Atelectasis; C50.919 Malignant neoplasm of unspecified site of unspecified female breast; Z99.81 Dependence on supplemental oxygen; I48.91 Unspecified atrial fibrillation; B34.1 Enterovirus infection, unspecified; F17.210 Nicotine dependence, cigarettes, uncomplicated; Z71.6 Tobacco abuse counseling; Z20.822 Contact with and (suspected) exposure to COVID-19; Z88.2 Allergy status to sulfonamides; Z79.52 Long term (current) use of systemic steroids; Z79.51 Long term (current) use of inhaled steroids; Z79.811 Long term (current) use of aromatase inhibitors; Z79.899 Other long term (current) drug therapy
CPT/HCPCS: 36415; 71045; 71275; 80048; 80076; 81001; 82803; 83605; 83690; 83735; 83880; 84145; 84439; 84443; 84484; 85025; 85027; 85379; 85610; 85730; 87040; 87633; 87635; 93005; 93306; 94640; 96361; 96365; 96366; 96375; 99285; J0456; J0696; J1650; J2920; J3475; Q9967

== ENCOUNTER 2025-01-25 03:16 | Inpatient (IN) | payer MEDICARE, MEDICAID, SELFPAY ==
[2025-01-25] VITALS (74 sets, daily range): BP systolic 67–186; BP diastolic 32–118; PULSE 60–152; RESP 14–33; TEMP 32–37.1; O2SAT 80–100; BMI 23.9
--- NOTE | 2025-01-25 | ECG_ITS ---
Test Reason : DYSPNEA AFIB Blood Pressure : */* mmHG Vent. Rate : 147 BPM Atrial Rate : * BPM P-R Int : * ms QRS Dur : 84 ms QT Int : 292 ms P-R-T Axes : * 66 87 degrees QTcB Int : 456 ms Artifact in tracing Likely sinus tachycardia Septal infarct , age undetermined Abnormal ECG When compared with ECG of 01-Mar-2022 14:16, Vent. rate has increased by 75 bpm Septal infarct is now Present T wave inversion no longer evident in Anterolateral leads Referred By: Richardson Olea Electronically Signed By: KELSEY MOMIN
--- NOTE | 2025-01-25 | ECG_ITS ---
Test Reason : trop ab Blood Pressure : */* mmHG Vent. Rate : 81 BPM Atrial Rate : 340 BPM P-R Int : * ms QRS Dur : 86 ms QT Int : 432 ms P-R-T Axes : * -77 157 degrees QTcB Int : 501 ms Atrial flutter with variable A-V block Left axis deviation Low voltage QRS Septal infarct T wave abnormality, consider anterolateral ischemia Abnormal ECG When compared with ECG of 25-Jan-2025 03:27, Poor data quality in current ECG precludes serial comparison Referred By: Macho Nicole Electronically Signed By: SHERRIE REZA MD
--- NOTE | 2025-01-25 | ECG_ITS ---
Test Reason : f up Nstemi Blood Pressure : */* mmHG Vent. Rate : 98 BPM Atrial Rate : * BPM P-R Int : * ms QRS Dur : 88 ms QT Int : 416 ms P-R-T Axes : * -62 139 degrees QTcB Int : 531 ms Atrial fibrillation Left axis deviation Low voltage QRS Cannot rule out Anterior infarct (cited on or before 25-Jan-2025) T wave abnormality, consider lateral ischemia Prolonged QT Abnormal ECG When compared with ECG of 25-Jan-2025 23:00, Atrial fibrillation has replaced Atrial flutter Referred By: Macho Nicole Electronically Signed By: SHERRIE REZA MD
--- NOTE | ~2025-01-25 | XR_ITS ---
CLINICAL HISTORY: karishma, og, cvl l IJ place 1 view chest x-ray. Comparison: CR - XR CHEST 1V - 01/25/25 04:30 EDT Findings: This examination is mildly limited by multiple structures overlying the patient. The distal tip of the endotracheal tube and robert are not well visualized on this examination. The endotracheal tube does appear to be above the robert however. Enteric tube visualized coursing below the diaphragm. The distal tip of the enteric tube is not included on this examination. Left internal jugular central venous catheter in place with the distal tip projecting over the mid to lower SVC. Minimal to mild nonspecific ill-defined opacities are redemonstrated within the bilateral lungs. No pneumothorax or significant pleural effusion. Stable pulmonary hyperexpansion. Heart size normal. Impression: 1. Support lines and tubes in place as described above. The distal tip of the endotracheal tube and robert are not well visualized on this examination, however the endotracheal tube does appear to be above the robert. May consider repeat examination for further evaluation of positioning as clinically directed. 2. Minimal to mild nonspecific ill-defined opacities redemonstrated within the lungs with pulmonary hyperexpansion, unchanged. This document has been electronically signed by: Jerome Stapleton MD on 01/25/2025 21:36:46
--- NOTE | ~2025-01-25 | XR_ITS ---
CLINICAL HISTORY: sob 1 view chest x-ray. Comparison: CT/SR - CT ANGIO CHEST PE PROTOCOL - 03/01/22 15:16 EDT CR/SR - XR CHEST 1V - 03/01/22 11:40 EDT Findings: Minimal to mild ill-defined opacities are identified over the mid to lower lungs bilaterally. No pneumothorax or significant pleural effusion visualized. The lungs are hyperexpanded. Heart size normal. Impression: 1. Pulmonary hyperexpansion with minimal to mild nonspecific opacities at the mid to lower lungs bilaterally. This document has been electronically signed by: Jerome Stapleton MD on 01/25/2025 04:55:53
[2025-01-25] MEDS: dilTIAZem HCL 50 MG/10 ML VIAL 10 MG IVPUSH ×2 (03:31→03:57)
--- NOTE | 2025-01-25 03:32 | ED_ITS ---
HPI - SOB/Dyspnea General Chief Complaint: Dyspnea Stated Complaint: COPD/SOB Time Seen by Provider: 01/25/25 03:21 Source: patient and EMS Mode of arrival: EMS Limitations: no limitations History of Present Illness ED Provider: HPI Narrative: Patient is 64 years old with history of COPD on 2 L oxygen breast cancer and adrenal cancer on prednisone, AFib, CHF recently admitted and intubated at [facility] 3 weeks ago comes here for increased shortness a breath started since yesterday patient was saturating 80% at room air placed on BiPAP by EMS came here with tachypneic tachycardic and short of breath Related Data Home Medications ?Medication ?Instructions ?Recorded ?Confirmed albuterol sulfate 90 mcg/actuation 1 inh inhalation Q4H PRN Wheezing 03/01/22 03/01/22 aerosol inhaler amitriptyline 10 mg tablet 10 mg PO BEDTIME 03/01/22 03/01/22 cyclobenzaprine 5 mg tablet 5 mg PO BEDTIME 03/01/22 03/01/22 fluticasone propionate 220 1 puff PO BID 03/01/22 03/01/22 mcg/actuation HFA aerosol inhaler (Flovent HFA) fluticasone propionate 50 1 spray intranasal BID PRN Allergy 03/01/22 03/01/22 mcg/actuation nasal Symptoms spray,suspension ipratropium 0.5 mg-albuterol 3 mg 3 ml inhalation BID 03/01/22 03/01/22 (2.5 mg base)/3 mL nebulization soln letrozole 2.5 mg tablet 2.5 mg PO DAILY 03/01/22 03/01/22 prednisone 5 mg tablet 1 tab PO DAILY 03/01/22 03/01/22 Previous Rx's ?Medication ?Instructions ?Recorded metoprolol succinate 25 mg 25 mg PO DAILY #30 tabs 03/06/22 tablet,extended release 24 hr nicotine (polacrilex) 2 mg gum 2 mg buccal Q2H PRN Nicotine 03/06/22 Cravings #100 ea nicotine 21 mg/24 hr daily 21 mg transdermal DAILY #28 ea 03/06/22 transdermal patch prednisone 5 mg tablet 5 mg PO BID #6 tabs 03/06/22 Allergies Allergy/AdvReac Type Severity Reaction Status Date / Time Sulfa (Sulfonamide Allergy Anaphylaxis Verified 01/25/25 03:21 Antibiotics) Review of Systems 2 Review of Systems: Yes all other systems are reviewed and are negative [facility] Past Medical History Medical History Tobacco use disorder Atrial fibrillation with rapid ventricular response Adrenal cancer Breast cancer COPD (chronic obstructive pulmonary disease) Social History Social History Household Members: Children Household Members Other:: Daughter Housing: House Do you presently have visiting nurse or other home services: No Comment: overflow Patient Tobacco Use Status: Current everyday Tobacco user Tobacco use type: Cigarette Cigarette Packs Per Day: 1.5 Cigarettes Per Day: 30.0 Years Smoked: 30 Smoked in Last 30 Days: Yes Advance Directives: No Advance Directives Date on File: 03/02/22 Do you have a plan to hurt others: No Plan service: No Current occupational status: employed Physical Exam 2 Vital Signs: Vital Signs: Last Vital Signs Temp 97.8 F 01/25/25 06:03 Pulse 135 H 01/25/25 07:02 Resp 30 H 01/25/25 07:02 BP 104/84 01/25/25 07:02 Pulse Ox 82 L 01/25/25 07:02 O2 Del Method BiPAP 01/25/25 07:02 FiO2 28 01/25/25 07:02 BMI result Body Mass Index 23.9 Appearance: Alert. And awake with severe respiratory distress Eyes: No pallor or icterus ENT: Pharynx normal. Oral Mucosa moist Neck: Normal inspection. Neck supple. CVS: Irregularly irregular tachycardic. Pulses normal. Respiratory: severe respiratory distress tripoding. Equal air entry bilateral, bilateral decreased air entry with wheezing Abdomen: Soft and nontender. Bowel sounds are present, no mass palpable, no CVA tenderness Skin: Skin warm and dry. Normal skin color. Normal skin turgor. Extremities: 3+ lower extremity edema. No calf tenderness Neuro: Oriented X 3. No motor deficit. No sensory deficit.No cerebellar signs , cranial nerves II-XII intact Medications Administered Generic Name Dose Route Start Last Admin Trade Name Freq PRN Reason Stop Dose Admin Azithromycin 500 mg/ Sodium 250 mls @ 125 mls/hr 01/25/25 06:08 01/25/25 06:50 Chloride IV 01/25/25 08:07 125 mls/hr ONCE ONE Administration Discontinued Medications Generic Name Dose Route Start Last Admin Trade Name Alyssa PRN Reason Stop Dose Admin Ceftriaxone Sodium 1 gm 01/25/25 04:44 01/25/25 04:49 Ceftriaxone Sodium 1 Gm Vial IVPUSH 01/25/25 04:45 1 gm ONCE ONE Administration Diltiazem HCl 10 mg 01/25/25 03:28 01/25/25 03:31 Diltiazem Hcl 50 Mg/10 Ml Vial IVPUSH 01/25/25 03:29 10 mg STAT STA Administration Diltiazem HCl 10 mg 01/25/25 03:56 01/25/25 03:57 Diltiazem Hcl 50 Mg/10 Ml Vial IVPUSH 01/25/25 03:57 10 mg STAT STA Administration Magnesium Sulfate 2 gm in 50 mls @ 150 mls/hr 01/25/25 04:12 01/25/25 04:42 Magnesium Sulfate/H2o IV 01/25/25 04:31 Infused ONCE ONE Infusion Sodium Chloride 1,000 mls @ 999 mls/hr 01/25/25 04:44 01/25/25 06:48 Ns IV 01/25/25 05:44 Infused .Q1H1M ONE Infusion Levalbuterol HCl 1.25 mg 01/25/25 04:41 01/25/25 04:45 Levalbuterol Hcl 1.25 Mg/3 Ml Vial.Neb INHALE 01/25/25 04:42 1.25 mg ONCE ONE Administration Methylprednisolone Sodium Succinate 125 mg 01/25/25 03:28 01/25/25 03:44 Methylprednisolone Sod Succ 125 Mg Vial IVPUSH 01/25/25 03:29 125 mg ONCE ONE Administration Midazolam HCl 2 mg 01/25/25 04:22 01/25/25 04:26 Midazolam Hcl 2 Mg/2 Ml Vial IVPUSH 01/25/25 04:23 2 mg ONCE ONE Administration Morphine Sulfate 2 mg 01/25/25 03:57 01/25/25 04:01 Morphine Sulfate 2 Mg/Ml Cartridge IVPUSH 01/25/25 03:58 2 mg ONCE ONE Administration Protocol Ondansetron HCl 4 mg 01/25/25 03:57 01/25/25 04:01 Ondansetron Hcl 4 Mg/2 Ml Vial IVPUSH 01/25/25 03:58 4 mg ONCE ONE Administration Medical Decision Making Medical Decision Making [facility] Narrative: Patient's COPD and CHF came here for increased shortness a breath noted to be in AFib with rapid ventricular rate patient has received IV Cardizem place on BiPAP had lactic acidosis from nebulizing treatment IV fluids were restricted for CHF and fluid overload, prophylactic antibiotic was given for bronchitis Patient has stayed on BiPAP and respiration improved ABG done at 06:16 showed pH of 7.33 pCO2 of 48 PO2 of 71 still requiring BiPAP at 33% FiO2 Case discussed with wind farm operations manager Dr. Mauro will admit to the ICU Differential Diagnosis Differential Diagnoses: The differential diagnosis associated with the presentation includes Acute respiratory failure/pneumonia/pneumothorax/CHF/ACS Admission/Observation Consideration of admission/observation: Escalation of care including admission/observation considered Consult Healthcare Provider Management of the patient was discussed with: Ceiling Installer Explosive Ordnance Technician Lab Data [facility] Lab Attestation statement: I reviewed the patient's lab results. 01/25/25 04:03 01/25/25 04:03 Labs: Lab Results 01/25/25 01/25/25 01/25/25 Range/Units 03:40 03:46 04:03 WBC 9.2 (4.8-10.8) X10*3/uL RBC 3.70 L D (4.20-5.50) X10*6/uL Hgb 12.7 D (12.0-16.0) g/dl Hct 40.3 D (37.0-47.0) % MCV 108.9 H (80.0-98.0) fL MCH 34.3 H (27.0-33.0) pg MCHC 31.5 (31.0-35.0) g/dl RDW 14.6 (11.0-16.0) % Plt Count 191 D (160-400) X10*3/uL MPV 10.1 (9.4-12.3) fL Immature Gran % (Auto) 0.4 (0.0-0.4) % Neut % (Auto) 63.1 (45-73) % Lymph % (Auto) 25.3 (20-40) % Pierce % (Auto) 9.2 (2-11) % Eos % (Auto) 1.6 (0-4) % Baso % (Auto) 0.4 (0-2) % Lymph # (Auto) 2.3 (1.2-4.9) X10*3/uL Pierce # (Auto) 0.8 (0.1-1.2) X10*3/uL Eos # (Auto) 0.2 (0.0-0.4) X10*3/uL Baso # (Auto) 0.0 (0.0-0.2) X10*3/uL Abs Immat Gran (auto) 0.04 H (0.00-0.03) X10*3/uL Absolute Neuts (auto) 5.8 (2.0-8.3) x10*3/uL Absolute Nucleated RBC 0.000 (0.0-0.012) X10*3/uL Nucleated RBC % (auto) 0.0 (0.0-0.2) /100WBC PT 11.9 (10.9-12.4) SEC INR 1.0 (0.9-1.1) O2 Saturation % ABG pH at Pt Temp (7.35-7.45) ABG pCO2 at Pt Temp (32-45) mmHg ABG pO2 at Pt Temp (83-108) mmHg ABG HCO3 (22-26) mmol/L ABG Base Excess (Actual) mmol/L VBG pH 7.20 L* (7.32-7.43) VBG pCO2 63 mmHg VBG pO2 44 mmHg VBG HCO3 25 (22-26) mmol/L VBG O2 Saturation 54.0 % VBG Base Excess -4.2 mmol/L Sodium 143 (135-145) mmol/L Potassium 4.1 D (3.3-5.1) mmol/L Chloride 105 (96-108) mmol/L Carbon Dioxide 25 (22-29) mmol/L Anion Gap 17 (12-20) BUN 15 (9-16) mg/dL Creatinine 1.00 (0.5-1.4) mg/dL Estim Creat Clear Calc 49.0 Estimated GFR 56 Random Glucose 200 H (60-115) mg/dL Lactic Acid 4.8 H* (0.5-2.0) mmol/L Calcium 9.9 D (8.4-10.2) mg/dL Magnesium 2.1 (1.6-2.6) mg/dL Total Bilirubin 0.5 (0.0-1.0) mg/dL AST 53 H (5-31) U/L ALT 35 H (0-31) U/L Alkaline Phosphatase 88 (39-117) U/L Troponin I High Sens 24.5 H (<3.5-17.0) ng/L B-Natriuretic Peptide 339 H (<100) pg/mL Total Protein 7.2 (6.5-8.0) g/dL Albumin 4.3 (3.5-5.0) g/dL Lipase 8 (8-78) U/L Influenza Type A (PCR) NEGATIVE (Negative) Influenza Type B (PCR) NEGATIVE (Negative) RSV RNA Qual (PCR) NEGATIVE (Negative) SARS-CoV-2 RNA (RT-PCR) NEGATIVE (Negative) 01/25/25 01/25/25 Range/Units 04:58 06:16 WBC (4.8-10.8) X10*3/uL RBC (4.20-5.50) X10*6/uL Hgb (12.0-16.0) g/dl Hct (37.0-47.0) % MCV (80.0-98.0) fL MCH (27.0-33.0) pg MCHC (31.0-35.0) g/dl RDW (11.0-16.0) % Plt Count (160-400) X10*3/uL MPV (9.4-12.3) fL Immature Gran % (Auto) (0.0-0.4) % Neut % (Auto) (45-73) % Lymph % (Auto) (20-40) % Pierce % (Auto) (2-11) % Eos % (Auto) (0-4) % Baso % (Auto) (0-2) % Lymph # (Auto) (1.2-4.9) X10*3/uL Pierce # (Auto) (0.1-1.2) X10*3/uL Eos # (Auto) (0.0-0.4) X10*3/uL Baso # (Auto) (0.0-0.2) X10*3/uL Abs Immat Gran (auto) (0.00-0.03) X10*3/uL Absolute Neuts (auto) (2.0-8.3) x10*3/uL Absolute Nucleated RBC (0.0-0.012) X10*3/uL Nucleated RBC % (auto) (0.0-0.2) /100WBC PT (10.9-12.4) SEC INR (0.9-1.1) O2 Saturation 92.0 % ABG pH at Pt Temp 7.33 L (7.35-7.45) ABG pCO2 at Pt Temp 48 H (32-45) mmHg ABG pO2 at Pt Temp 71 L (83-108) mmHg ABG HCO3 26 (22-26) mmol/L ABG Base Excess (Actual) -0.1 mmol/L VBG pH 7.24 L (7.32-7.43) VBG pCO2 69 mmHg VBG pO2 66 mmHg VBG HCO3 30 H (22-26) mmol/L VBG O2 Saturation 85.0 % VBG Base Excess 0.9 mmol/L Sodium (135-145) mmol/L Potassium (3.3-5.1) mmol/L Chloride (96-108) mmol/L Carbon Dioxide (22-29) mmol/L Anion Gap (12-20) BUN (9-16) mg/dL Creatinine (0.5-1.4) mg/dL Estim Creat Clear Calc Estimated GFR Random Glucose (60-115) mg/dL Lactic Acid (0.5-2.0) mmol/L Calcium (8.4-10.2) mg/dL Magnesium (1.6-2.6) mg/dL Total Bilirubin (0.0-1.0) mg/dL AST (5-31) U/L ALT (0-31) U/L Alkaline Phosphatase (39-117) U/L Troponin I High Sens (<3.5-17.0) ng/L B-Natriuretic Peptide (<100) pg/mL Total Protein (6.5-8.0) g/dL Albumin (3.5-5.0) g/dL Lipase (8-78) U/L Influenza Type A (PCR) (Negative) Influenza Type B (PCR) (Negative) RSV RNA Qual (PCR) (Negative) SARS-CoV-2 RNA (RT-PCR) (Negative) Independent Interpretation I performed an independent interpretation of an: EKG Interpretation: Atrial fibrillation with ventricular rate of 147 beats per minute no acute ST elevation no acute ischemia Radiology Impression Discussion of test interpretation with radiology: I have reviewed the radiologist's reading. Radiologist Impression: [id number] [place] [address] XRay Report Signed Patient: Patt Lezama MR#: [id number] : 1960 Acct:[id number] Age/Sex: 64 / F ADM Date: 01/25/25 Loc: HO.ED Attending Dr: Ordering Physician: Richardson Olea MD Date of Service: 01/25/25 Procedure(s): XR chest 1V Accession Number(s): [id number] cc: Physician,Unknown ; Richardson Olea MD~ CLINICAL HISTORY: sob 1 view chest x-ray. Comparison: CT/SR - CT ANGIO CHEST PE PROTOCOL - 03/01/22 15:16 EDT CR/SR - XR CHEST 1V - 03/01/22 11:40 EDT Findings: Minimal to mild ill-defined opacities are identified over the mid to lower lungs bilaterally. No pneumothorax or significant pleural effusion visualized. The lungs are hyperexpanded. Heart size normal. Impression: 1. Pulmonary hyperexpansion with minimal to mild nonspecific opacities at the mid to lower lungs bilaterally. This document has been electronically signed by: Jerome Stapleton MD on 01/25/2025 04:55:53 Critical Care Time Critical Care Time Critical Care Time: Yes Total Critical Care Time: 90 Attestation: The patient was critically ill with a high probability of imminent or life threatening deterioration. I spent greater than 100???minutes of discontinuous time evaluating the patient,delivering critical care at the bedside, discussing and evaluating pertinent data with consultants. Critical care time does not include time spent performing separately billable procedures or teaching. Total time spent performing critical care was 90???minutes. Discharge Plan Discharge Clinical Impression: Acute on chronic respiratory failure with hypoxia and hypercapnia, Atrial fibrillation with rapid ventricular response Patient Disposition: Admitted As Inpatient
[2025-01-25 03:44] LABS: Venous Blood Gas Refer to POC result
[2025-01-25 03:54] LABS: VBG Base Excess -4.2 mmol/L; VBG HCO3 25 mmol/L (22-26); VBG pCO2 63 mmHg; VBG pO2 44 mmHg
[2025-01-25] MEDS: Morphine Sulfate 2 MG/ML CARTRIDGE IVPUSH (04:01)
[2025-01-25] MEDS: ondansetron HCL 4 MG/2 ML VIAL IVPUSH (04:01)
[2025-01-25 04:08] LABS: Basophils Percent Auto 0.4 % (0-2); Eosinophils Absolute Auto 0.2 X10*3/uL (0.0-0.4); Eosinophils Percent Auto 1.6 % (0-4); Hematocrit 40.3 % (37.0-47.0); Hemoglobin 12.7 g/dl (12.0-16.0); Imm Gran Abs Auto 0.04 X10*3/uL (0.00-0.03); Imm Gran Pct Auto 0.4 % (0.0-0.4); Lymphocytes Absolute Auto 2.3 X10*3/uL (1.2-4.9); Lymphocytes Percent Auto 25.3 % (20-40); Mean Corpuscular HGB Conc 31.5 g/dl (31.0-35.0); Mean Corpuscular Hemoglobin 34.3 pg (27.0-33.0); Mean Corpuscular Volume 108.9 fL (80.0-98.0); Mean Platelet Volume 10.1 fL (9.4-12.3); Monocytes Absolute Auto 0.8 X10*3/uL (0.1-1.2); Monocytes Percent Auto 9.2 % (2-11); Neutrophils Absolute Auto 5.8 x10*3/uL (2.0-8.3); Neutrophils Percent Auto 63.1 % (45-73); Platelet Count 191 X10*3/uL (160-400); Red Cell Distribution Width 14.6 % (11.0-16.0); White Blood Count 9.2 X10*3/uL (4.8-10.8)
[2025-01-25 04:09] LABS: MANUAL DIFF FLAG NO
[2025-01-25 04:14] LABS: Prothrombin Time 11.9 SEC (10.9-12.4)
[2025-01-25] MEDS: Magnesium Sulfate/H2O 2 GM/50 ML PIGGYBACK IV (04:16)
[2025-01-25 04:24] LABS: Alanine Aminotransferase 35 U/L (0-31); Albumin Level 4.3 g/dL (3.5-5.0); Alkaline Phosphatase 88 U/L (39-117); Anion Gap 17 (12-20); Aspartate Amino Transferase 53 U/L (5-31); Bilirubin Total 0.5 mg/dL (0.0-1.0); Blood Urea Nitrogen 15 mg/dL (9-16); Calcium 9.9 mg/dL (8.4-10.2); Carbon Dioxide 25 mmol/L (22-29); Chloride 105 mmol/L (96-108); Estimated Glomerular Filt Rate 56; Glucose Random 200 mg/dL (60-115); Lipase 8 U/L (8-78); Magnesium 2.1 mg/dL (1.6-2.6); Potassium 4.1 mmol/L (3.3-5.1); Sodium 143 mmol/L (135-145); Total Protein 7.2 g/dL (6.5-8.0)
[2025-01-25 04:24] LABS: Influenza A PCR NEGATIVE (Negative); Influenza B PCR NEGATIVE (Negative); Resp Syncy Virus RNA Qual PCR NEGATIVE (Negative); SARS COV2 PCR INHOUSE NEGATIVE (Negative)
[2025-01-25] MEDS: Midazolam HCl 2 MG/2 ML VIAL IVPUSH (04:26)
[2025-01-25 04:27] LABS: B Type Natriuretic Peptide 339 pg/mL (<100)
[2025-01-25 04:31] LABS: Troponin-I High Sensitivity 24.5 ng/L (<3.5-17.0)
[2025-01-25 04:34] LABS: Lactic Acid 4.8 mmol/L (0.5-2.0)
[2025-01-25] MEDS: levalbuterol HCL 1.25 MG/3 ML VIAL.NEB INHALE ×4 (04:45→19:05)
--- OUTSIDE RECORDS SUMMARY | 2025-01-25 04:47 | XMS_ITS | Clinical Summary ---
Author Organization [facility] Facility Address [address] [address] Care Team Providers Care Pool Table Operator Name Role Phone Eugenie Berg MD Primary Care Provider Social History Tobacco Use Types Packs/Day Years Used Date Smoking Tobacco: Never Assessed Comments Unknown Sex and Gender Information Value Date Recorded Sex Assigned at Not on file Legal Sex Female 9:56 AM EDT Gender Identity Not on file Sexual Orientation Not on file Plan of Treatment Health Maintenance Due Date Last Done Comments Breast Cancer Screening 1960 Colorectal Cancer Screening: Annual FOBT 2009 Colorectal Cancer Screening: Colonoscopy 2009 Colorectal Cancer Screening: Sigmoidoscopy 2009 Pneumococcal Vaccine: 50+ Ye ars ( - PCV) 2010 Influenza Vaccine (Season Ended) 2025 Hepatitis B Vaccine Aged Out No longe r eligible based on patient's age to complete this topic Insurance Medicare Medicaid [place] Care Teams Pool Table Operator Relationship Specialty Start Date End Date Eugenie Berg MD [address] [place] [id number] PCP - General Family Medicine 11/27/23
[2025-01-25] MEDS: cefTRIAXone sodium 1 GM VIAL IVPUSH (04:49)
[2025-01-25] MEDS: 0.9 % Sodium Chloride 1,000 ML 999 ML IV (04:50)
[2025-01-25 05:01] LABS: Venous Blood Gas Refer to POC result
[2025-01-25 05:03] LABS: VBG Base Excess 0.9 mmol/L; VBG HCO3 30 mmol/L (22-26); VBG pCO2 69 mmHg; VBG pH 7.24 (7.32-7.43); VBG pO2 66 mmHg
[2025-01-25 06:07] LABS: Reflex Lactate? Lactic Acid Added
--- NOTE | 2025-01-25 06:11 | PC.NURSE ---
late entry due to patient care - pt arrived via ambulance in extreme respiratory distress on cpap, tripod breathing w/ use of accessory muscles. was found to be 80% on room air for ems. on arrival, RT at bedside placed pt onto bipap immediately. ekg done, placed on sales assistants and salespersons and found to be in rapid afib to 140s. pt poked multiple times for iv access as she is very difficult stick. labs obtained and #22 g iv placed to right hand. iv cardizem, solumedrol, mag administered per nov, along with morphine and versed to slow breathing and calm pt. at this time HR improved still afib but slowed to 100-115. BP soft at 99/75, Respiratory drive improved RR 15-20. Md Olea obtained ultrasound guided iv #20g to L upper arm. Rt at bedside patient remains on bipap at this time,. plan to be admitted to ICU for further management.
[2025-01-25 06:20] LABS: ABG Base Excess -0.1 mmol/L; ABG HCO3 26 mmol/L (22-26); ABG pCO2 48 mmHg (32-45); ABG pH 7.33 (7.35-7.45); ABG pO2 71 mmHg (83-108)
[2025-01-25] MEDS: Azithromycin 500 MG in 0.9 % Sodium Chloride 250 ML 125 MG IV (06:50)
[2025-01-25 07:19] LABS: ABG Refer to POC result
[2025-01-25] MEDS: dilTIAZem HCL 125 MG in 0.9 % Sodium Chloride 100 ML 10 MG IVCONT (07:26)
[2025-01-25] MEDS: levalbuterol HCL 1.25 MG/3 ML VIAL.NEB 5 MG INHALE (07:40)
--- NOTE | 2025-01-25 07:40 | PC.RT ---
RT called to bedside for pt low SATs. Upon arrival, pt was tripoding in bed while on bipap support. Pt lungs tight and diminished bilaterally w/ wheezing on left side. Pt given levalbuterol w/ improvement in air movement. Pt bipap settings increased as needed. Pt currently on 04/05 36% w/ HR 135 SAT 96% RR 20. RN in communication w/ ER and ICU for further tx plans. Albuterol orders changed to levalbuterol due to HR. Will continue to closely monitor pt.
--- NOTE | 2025-01-25 08:19 | PC.NURSE ---
assumed care of patient at 0700, RN notified patient was satting 82% on bipap, patient found to be tripoding in bed. patient assisted to sitting up position, pillow propped between shoulder blades. patient noted to be in afib rvr rate 130s-150s. patient increased wob, bilat lung sounds auscultated- tightness noted. RT at bedside for assessment. patient recieved breathing tx from RT, patient sat began to recover, inpatient attending in ICU contactedm requested ED doc Dr GERARDO rowe at bedside, agreed to allow treatments to continue. patient diltizem gtt started per NOV, inpatient attending requested for it to be DC'd for additional order. ICU called for report, report given to ICU. patient transferred to ICU with RT and parker. patient appeared more comfortable on transfer to icu
[2025-01-25] MEDS: Amiodarone/Dextrose 150 MG/100 ML PLAST..BAG 600 MG IV (08:28)
[2025-01-25] MEDS: Heparin Sodium,Porcine 5,000 UNIT/ML VIAL 5000 UNIT SUBCUT (08:29)
[2025-01-25] MEDS: Amiodarone HCL 900 MG in 0.9 % Sodium Chloride 500 ML 34.53 MG IVCONT ×2 (08:43→09:30)
[2025-01-25] MEDS: dexmedeTOMIDine HCL/NS 400 MCG/100 ML PLAST..BAG 15.8 MCG IVCONT (08:45)
[2025-01-25] MEDS: Albuterol Sulfate (0.083%) 2.5 MG/3 ML VIAL.NEB INHALE (08:54)
[2025-01-25 09:21] LABS: ~Lactic Acid-LAB USE ONLY 3.8 mmol/L (0.5-2.0)
[2025-01-25] MEDS: Phenylephrine HCL 20 MG in 0.9 % Sodium Chloride 250 ML 23.89 MG IVCONT (09:22)
--- NOTE | 2025-01-25 10:48 | W.PM.CCCN ---
History of Present Illness Data of Consult Service Date: 01/25/25 Primary Care Provider: Unknown Physician HPI Reason for consult: Shortness of breaths 64 years old lady with PMH of COPD on 2 L oxygen, atrial fibrillation, CHF breast cancer and adrenal cancer on prednisone recently admitted and intubated at [facility] [place] 3 weeks ago presented with shortness of breath that started yesterday, progressive in nature that she was very dyspneic tachypneic and hypoxic upon arrival to the ED. Patient was tripoding, asking to be intubated, placed on BiPAP support and Precedex for anxiolysis. She is also in atrial fibrillation with RVR with heart rates in 140s, treated with amiodarone drip. Review of Systems Review of Systems: Unable to obtain as patient is in distress PMFSH Past Medical History Medical History Tobacco use disorder Atrial fibrillation with rapid ventricular response Adrenal cancer Breast cancer COPD (chronic obstructive pulmonary disease) Social History Social History Household Members: Family and Children Household Members Other:: Daughter Housing: House Do you presently have visiting nurse or other home services: Yes Comment: overflow Patient Tobacco Use Status: Former Tobacco user Tobacco use type: Cigarette Cigarette Packs Per Day: 1.5 Cigarettes Per Day: 30.0 Years Smoked: 30 Smoked in Last 30 Days: No Use of substances other than those prescribed or required for medical reasons: Yes Substance Use Type: Marijuana Substance Use Frequency: Daily Last Used Substance: Days (ago) Currently Displaying Signs/Symptoms of Drug Intoxication Withdrawal: No Any prior treatment program specific to substance use: No Have you been hit, kicked, punched, or otherwise hurt by someone within the past year? If so, by whom?: No Do you feel safe in your current relationship?: No Current Relationship Is there a partner from a previous relationship who is making you feel unsafe now?: No Advance Directives: No Advance Directives Date on File: 03/02/22 Do you have a plan to hurt others: No Plan Recently lost weight without trying: Yes How much weight loss: 2-13 pounds Eating poorly because of decreased appetite: Yes Nutrition screen score: 4 Nutrition Risks: Poor intake 0-25% >4 days Patient : No : No Poor oral hygiene: No service: No Current occupational status: employed Meds Allergies Allergy/AdvReac Type Severity Reaction Status Date / Time Sulfa (Sulfonamide Allergy Anaphylaxis Verified 01/25/25 03:21 Antibiotics) Active Medications: Current Medications Albuterol Sulfate (Albuterol Sulfate (0.083%) 2.5 Mg/3 Ml Vial.Neb) 2.5 mg INHALE Q3H PRN PRN Reason: wheezing Last Admin: 01/25/25 08:54 Dose: 2.5 mg Ceftriaxone Sodium (Ceftriaxone Sodium 1 Gm Vial) 1 gm IVPUSH Q24H CAREY Heparin Sodium (Porcine) (Heparin Sodium,Porcine 5,000 Unit/Ml Vial) 5,000 unit SUBCUT Q12H CAREY Last Admin: 01/25/25 08:29 Dose: 5,000 unit Diltiazem HCl 125 mg/ Sodium (Chloride) 125 mls @ 0 mls/hr IVCONT .Q0M CAREY; Protocol Last Titration: 01/25/25 07:48 Dose: Infused Pantoprazole Sodium 40 mg/ (Sodium Chloride) 110 mls @ 400 mls/hr IV DAILY@0630 CAREY Azithromycin 500 mg/ Sodium (Chloride) 250 mls @ 125 mls/hr IV DAILY CAREY Stop: 01/30/25 08:59 Amiodarone HCl 900 mg/ Sodium (Chloride) 518 mls @ 34.533 mls/hr IVCONT .Q15H1M CAREY; Protocol Last Admin: 01/25/25 08:43 Dose: 1 mg/min, 34.53 mls/hr Dexmedetomidine HCl (Precedex) 400 mcg in 100 mls @ 0 mls/hr IVCONT .Q0M CAREY; Protocol Last Titration: 01/25/25 09:32 Dose: 1.5 mcg/kg/hr, 23.7 mls/hr Phenylephrine HCl 20 mg/ (Sodium Chloride) 252 mls @ 0 mls/hr IVCONT .Q0M CAREY; Protocol Last Admin: 01/25/25 09:22 Dose: 0.5 mcg/kg/min, 23.89 mls/hr Levalbuterol HCl (Levalbuterol Hcl 1.25 Mg/3 Ml Vial.Neb) 1.25 mg INHALE RTID CAREY Last Admin: 01/25/25 07:32 Dose: 1.25 mg Methylprednisolone Sodium Succinate (Methylprednisolone Sod Succ 40 Mg/Ml Vial) 40 mg IVPUSH Q8H CAREY Home Medications ?Medication ?Instructions ?Recorded ?Confirmed ?Last Taken ?Type albuterol sulfate 90 mcg/actuation 2 inh inhalation Q6H PRN Shortness 03/01/22 01/25/25 02/28/22 History aerosol inhaler Of Breath Or Wheezing fluticasone propionate 50 1 spray intranasal BID PRN Allergy 03/01/22 01/25/25 02/28/22 History mcg/actuation nasal Symptoms spray,suspension ipratropium 0.5 mg-albuterol 3 mg 3 ml inhalation BID PRN Shortness 03/01/22 01/25/25 02/28/22 History (2.5 mg base)/3 mL nebulization Of Breath Or Wheezing soln prednisone 5 mg tablet 1 tab PO DAILY 03/01/22 01/25/25 02/28/22 History albuterol sulfate 2.5 mg/3 mL 2.5 mg inhalation QID PRN dyspnea 01/25/25 01/25/25 Unknown History (0.083 %) solution for nebulization ascorbic acid (vitamin C) 500 mg 500 mg PO DAILY 01/25/25 01/25/25 Unknown History tablet (Vitamin C) buprenorphine 8 mg-naloxone 2 mg 1 film sublingual DAILY 01/25/25 01/25/25 Unknown History sublingual film cetirizine 10 mg tablet 10 mg PO DAILY 01/25/25 01/25/25 Unknown History diltiazem HCl 180 mg capsule,24 180 mg PO DAILY 01/25/25 01/25/25 Unknown History hr,extended release ergocalciferol (vitamin D2) 1,250 1,250 mcg PO MO 01/25/25 01/25/25 Unknown History mcg (50,000 unit) capsule famotidine 40 mg tablet 40 mg PO BID 01/25/25 01/25/25 Unknown History ferrous sulfate 325 mg (65 mg 325 mg PO Q48H 01/25/25 01/25/25 Unknown History iron) tablet (FeroSul) fluticasone fur. 100 mcg-umeclid 1 inh inhalation DAILY 01/25/25 01/25/25 Unknown History 62.5 mcg-vilant 25 mcg inhalat.powder (Trelegy Ellipta) multivitamin 1 tab PO DAILY 01/25/25 01/25/25 Unknown History pregabalin 25 mg capsule 50 mg PO Q12H 01/25/25 01/25/25 Unknown History Physical Exam Vital Signs: Vital Signs: Last Vital Signs Temp 98.5 F 01/25/25 08:00 Pulse 120 H 01/25/25 09:22 Resp 25 H 01/25/25 09:00 BP 83/67 L 01/25/25 09:22 Pulse Ox 90 L 01/25/25 09:00 O2 Del Method BiPAP 01/25/25 09:00 FiO2 36 01/25/25 09:00 BMI result Body Mass Index 23.9 General: Elderly lady dyspneic and in severe acute distress, ill appearing and tired appearing Nutritional Appearance: Poorly nourished and normal weight Eyes: appearance normal, both eyes and all related structures; Alignment and Position: alignment normal and position normal Neck: No lymphadenopathy, no thyromegaly Resp: bilateral air entry equal, bilateral wheeze heard Cardio: Regular rate, regular rhythm; Heart sounds: S1 normal heart sound present and S2 normal heart sound present GI: soft, nontender, no guarding, no hepatosplenomegaly : bladder normal to inspection, bladder normal to palpation, no renal angle tenderness Skin: no rashes or lesions noted and elasticity normal Neuro: Anxious and confused, moves all extremities Results Labs 01/25/25 04:03 01/25/25 04:03 Labs: Short CBC 01/25/25 Range/Units 04:03 WBC 9.2 (4.8-10.8) X10*3/uL Hgb 12.7 D (12.0-16.0) g/dl Hct 40.3 D (37.0-47.0) % Plt Count 191 D (160-400) X10*3/uL BMP 01/25/25 04:03 Sodium 143 Potassium 4.1 D Chloride 105 Carbon Dioxide 25 BUN 15 Creatinine 1.00 Calcium 9.9 D Liver Function 01/25/25 Range/Units 04:03 Total Bilirubin 0.5 (0.0-1.0) mg/dL AST 53 H (5-31) U/L ALT 35 H (0-31) U/L Alkaline Phosphatase 88 (39-117) U/L Albumin 4.3 (3.5-5.0) g/dL Assessment and Plan (1) Acute on chronic respiratory failure with hypoxemia: Status: Acute (2) Atrial fibrillation with rapid ventricular response: Status: Acute (3) Paroxysmal atrial fibrillation: Status: Acute (4) Cardiogenic shock: Status: Acute Plan Neuro: Acute encephalopathy possibly due to anxiety and agitation, started on Precedex drip Close neurological status monitoring in the ICU every hour Cardiac: Cardiogenic Shock: Possibly secondary to atrial fibrillation with RVR treated with Cardizem and positive pressure ventilation. Currently Cardizem is stopped, started on phenylephrine as she is hypotensive, titrate to keep map above 65 mm Hg. Normal LV systolic function, impaired relaxation Atrial fibrillation with RVR: Received amnio bolus, currently on amiodarone drip Lovenox for anticoagulation Respiratory: Acute on chronic hypoxemic and hypercapnic respiratory failure possibly secondary to COPD exacerbation and aspiration pneumonia Currently on BiPAP support, tolerating BiPAP better after starting the Precedex drip We will get respiratory viral panel, MRSA nares. Flu and COVID negative On ceftriaxone for possible aspiration pneumonia as seen on CT scan; CT scan negative for PE GI: We will hold off on feeds Renal: Creatinine normal We will closely monitor I's and O's Avoid nephrotoxic medications Heme: Chronic anemia, closely monitor H&H, transfuse for hemoglobin less than 7 grams/deciliter Endocrine: Blood sugars under control Sliding scale insulin as needed Infectious disease: We will send pancultures, respiratory viral panel, MRSA nares. Flu and influenza negative We will start the patient on empiric ceftriaxone and azithromycin Musculoskeletal: Decubitus ulcer prevention protocol Lines: Peripheral Prophylaxis: Lovenox, pantoprazole
--- NOTE | 2025-01-25 10:49 | PHA.MEDREC ---
Addendum entered by Elli Beasley RPh 01/25/25 11:13: reviewed by [facility]. Original Note: Pharmacy Consult ? Medication Reconciliation Pharmacy has completed the medication reconciliation. Spoke with daughter at bedside to confirm medications. Daughter had patients discharge medications list from [facility] since patient was discharged about 1 week ago. Daughter reports they reviewed med list with PCP on Sunday of this week. She is no longer taking eliquis d/t a hemorrhage. The diltiazem was decreased to 180 mg daily. She is no longer on lasix. She is still taking prednisone 5 mg daily and suboxone 8-2 mg daily (not on DC papers but daughter confirmed). She gets Vitamin D2 every Sunday but has not had it since she was at [facility]. Ferrous sulfate, pregabalin, vitamin C and the multivitamin she has not had since being at [facility] either, they are still in the process of trying to get the medications, the rest she did get sent home with. Daughter reports patient had her morning doses of the medications they have at home.
[2025-01-25 10:58] LABS: Reflex Lactate? 2 Y
[2025-01-25] MEDS: methylPREDNISolone Sod Succ 40 MG/ML VIAL IVPUSH ×2 (11:07→21:39)
[2025-01-25] MEDS: Pantoprazole Sodium 40 MG/10 ML VIAL IVPUSH (11:13)
[2025-01-25 11:49] LABS: ~Lactic Acid-LAB USE ONLY 4.7 mmol/L (0.5-2.0)
[2025-01-25] MEDS: OLANZapine 10 MG VIAL IM (12:17)
[2025-01-25 12:27] LABS: Adenovirus PCR Not Detected (Not Detect.); Bordetella parapertussis PCR Not Detected (Not Detect.); Bordetella pertussis PCR Not Detected (Not Detect.); Chlamydia pneumoniae PCR Not Detected (Not Detect.); Coronavirus 229E PCR Not Detected (Not Detect.); Coronavirus HKU1 PCR Not Detected (Not Detect.); Coronavirus NL63 PCR Not Detected (Not Detect.); Coronavirus OC43 PCR Not Detected (Not Detect.); Human metapneumovirus PCR Not Detected (Not Detect.); Influenza A PCR Not Detected (Not Detect.); Influenza B PCR Not Detected (Not Detect.); Mycoplasma pneumoniae PCR Not Detected (Not Detect.); Parainfluenza 1 PCR Not Detected (Not Detect.); Parainfluenza 2 PCR Not Detected (Not Detect.); Parainfluenza 3 PCR Detected (Not Detect.); Parainfluenza 4 PCR Not Detected (Not Detect.); RSV PCR Not Detected (Not Detect.); Rhino/Enterovirus PCR Not Detected (Not Detect.)
[2025-01-25] MEDS: dexmedeTOMIDine HCL/NS 400 MCG/100 ML PLAST..BAG 23.7 MCG IVCONT (12:35)
[2025-01-25 12:40] LABS: MRSA Nasal PCR NEGATIVE (Negative); SA Nasal PCR POSITIVE (Negative)
[2025-01-25] MEDS: Phenylephrine HCL 20 MG in 0.9 % Sodium Chloride 250 ML 167.23 MG IVCONT (12:44)
[2025-01-25 12:47] LABS: SARS-CoV-2 PCR Not Detected (Not Detect.)
[2025-01-25 12:48] LABS: Influenza A H1 PCR Not Detected (Not Detect.); Influenza A H1-2009 PCR Not Detected (Not Detect.); Influenza A H3 PCR Not Detected (Not Detect.)
[2025-01-25] MEDS: Norepinephrine Bitartrate/D5W 8 MG/250 ML PLAST..BAG 5.93 MG IVCONT (12:50)
[2025-01-25] MEDS: Phenylephrine HCL 20 MG in 0.9 % Sodium Chloride 250 ML 95.56 MG IVCONT (14:19)
--- NOTE | 2025-01-25 15:21 | HO.SKINPHOTO ---
Location: Coccyx Category: Pressure Injury Location: Left Heel Category: Pressure Injury (healing)
--- NOTE | 2025-01-25 15:50 | PC.NURSE ---
Pt. transferred to ICU at approx 0800- pt. A&Ox4 extremely restless and anxious, stating I can't breathe and Just intubate me . Pt. satting >92% on bipap 02/03 36%- Precedex gtt started and titrated per NOV. Afib on tele, HR 120s-140s- Amio load and maintenance gtt per NOV. MAPs maintaining <65- MD notified, phenylephrine gtt started. Zyprexa IM given for continued agitation/restlessness. Pt. converted to aflutter on tele, HR 50s-80s. Phenylephrine gtt cross titrated to norepinephrine gtt per MD- see MAR. Pt. using bedpan, small BMx1 and unmeasured void x1. Full bath performed- pressure injury POA to coccyx and left heel- see skin photos. wound care consult placed. Q2 repositioning and oral care performed. Protective dressing placed to nose while on Bipap. Family at bedside and updated by this RN. Plan of care ongoing.
[2025-01-25] MEDS: Haloperidol Lactate 5 MG/ML VIAL 2 MG IVPUSH (17:45)
[2025-01-25] MEDS: dexmedeTOMIDine HCL/NS 400 MCG/100 ML PLAST..BAG 17.38 MCG IVCONT (17:53)
[2025-01-25] MEDS: Rocuronium Bromide 50 MG/5 ML VIAL 30 MG IVPUSH (19:30)
[2025-01-25] MEDS: Etomidate 20 MG/10 ML VIAL IVPUSH (19:30)
--- NOTE | 2025-01-25 19:54 | W.PM.CCHP ---
Procedures Date of Service Date of Service: 01/25/25 Central Line Placement Left IJ: Consent for Procedure: Elective - informed consent obtained (from daughter CANDACE Conn over the phone, risk and benefits explained, RN Chester as witness) Time out performed: Yes Sterile Technique Used: Yes Patient placed on monitor/pulse ox: Yes prep: mask, gown, gloves and other (handwash, cap) Central line prep: Chlorhexidine scrub (x 3) Ultrasound used for placement: Yes Central line lumen inserted: triple (16 cm) Post procedure: sutured in place, good blood return, all ports aspirated, flushed, capped and sterile dressing applied Post procedure x-ray: tip of catheter in good position and no pneumothorax seen Patient tolerated procedure: well and no complications Complications: none
--- NOTE | 2025-01-25 19:54 | W.PM.CCHP ---
Procedures Date of Service Date of Service: 01/25/25 Intubation Consent for Procedure: Emergent-no informed consent obtained Time out performed: Yes Sedative: etomidate Mg given: 20 Paralytic: rocuronium Mg given: 30 Laryngoscope: fiber optic video scope ET tube size: 7 ET tube uncuffed: Yes Tube secured depth (cm): 21 Tube secured location: lips Tube placement confirmation: visualized tube passing through cords, equal breath sounds bilaterally, no breath sounds over epigastrium and confirmation by capnometry Patient tolerated procedure: well and no complications Intubation complications: none
[2025-01-25 20:01] LABS: ABG Base Excess -11.8 mmol/L; ABG HCO3 16 mmol/L (22-26); ABG pCO2 45 mmHg (32-45); ABG pH 7.16 (7.35-7.45); ABG pO2 368 mmHg (83-108)
[2025-01-25] MEDS: propofoL 1,000 MG/100 ML VIAL 11.38 MG IVCONT (20:50)
[2025-01-25] MEDS: Norepinephrine Bitartrate/D5W 8 MG/250 ML PLAST..BAG 49.77 MG IVCONT (20:50)
--- NOTE | 2025-01-25 21:04 | HO.HCP ---
Health Care Proxy Invocation Health Care Proxy Declaration: Macho Sequeira [facility], [place], [place], on the date cited below, have determined that, Teja Beltre, lacks the capacity to make or communicate, informed health care decision. This determination is made in accordance with accepted standards of medical judgment and pursuant to [place] c. 201[place], the [place] Health Care Proxy Law. The cause, nature, extent and probable duration of the patient's inapacity are described below: Cause:Metabolic Encephalopathy Nature: Hypoxic and Hypercarbic Resp Failure Extent: Moderate Probable Duration of Patient's Incapacity: Undetermined The patient's current inability to make decisions were discussed in detail with the patient's daughter who is the healthcare proxy. I spoke to [facility] via phone on 12/28 [id number], she was given an update on the patient's clinical status and the need for emergent intubation just prior to calling her as we could not wait to make the phone call before proceeding. She does corroborate her mom wanted to be a full code. She is in agreement with continuing with all medical treatment and measures necessary. The need of placing a central line was discussed with her, risks and benefits were explained in detail in the presence of the nurse Chester; the patient's daughter and healthcare proxy agreed.
[2025-01-25 21:18] LABS: Hematocrit 41.5 % (37.0-47.0); Mean Corpuscular HGB Conc 31.3 g/dl (31.0-35.0); Mean Corpuscular Hemoglobin 34.4 pg (27.0-33.0); Mean Corpuscular Volume 109.8 fL (80.0-98.0); Red Blood Count 3.78 X10*6/uL (4.20-5.50); Red Cell Distribution Width 14.6 % (11.0-16.0); White Blood Count 23.6 X10*3/uL (4.8-10.8)
--- NOTE | 2025-01-25 21:25 | P.PNCC_ITS ---
Critical Care Event Note Summary Date of Service: 01/25/25 Code activated: No Narrative: This case had a high probability of a clinically significant, sudden, or life threatening deterioration of this patient's condition which required my full and direct attention, intervention and personal management. Critical Care Time (minutes): 45 Comment: During my evening rounds, the patient on BiPAP 12/5 with FiO2 of 35%, breathing at set rate of 12. She is completely obtunded, unresponsive with cyanotic lips satting 84%. The team was gathered immediately, the patient placed on full oxygen support, respiratory therapy called at bedside. BiPAP increased to 16/8 with a FiO2 of 100, jaw thrust was implemented improving oxygenation. RSI kit prepared; labs and medications were reviewed. Time-out taken. The patient was successfully intubated as detailed on procedure note. Subsequently an ABG was obtained, full set of laboratories. Subsequently an OG tube in a left IJ central line were placed with the consent of the patient's healthcare proxy her daughter Lilian Conn. Review of laboratories show a white count which is likely due to steroid induction, her H&H is 13 and 41 respectively, platelets 86,000. Sodium 142, potassium 4.9, chloride 109, carbon dioxide 18, anion gap 20, BUN 28, creatinine 1.71 when her baseline had been 1.0.? Lactic acid and troponin pending. ABG shows pH of 7.16, pCO2 45, PO2 368, HC03 16. EKG: to my view this is Rate controlled atrial flutter ID 1 beats per minute.? Left axis deviation.? T-wave inversions throughout the anterior lateral leads.? There is no ST elevations, no ST depressions. QT 432ms. All of these are new since 03/01/2022. REVISED ASSESSMENT: WORSENING ACUTE RESPIRATORY FAILURE DUE TO PARAINFLUENZA WITH HYPERCARBIC STATE ACUTE CARDIOGENIC / SEPTIC SHOCK ACUTE METABOLIC ACIDOSIS ANURIA ACUTE KIDNEY INJURY SHOCK LIVER SYNDROME MRSA COLONIZATION PLAN OF CARE: As above-mentioned, the patient was intubated emergently, central line placed.?The patient is not producing urine she has increased creatinine, we will administer sodium bicarb drip.?Continue ventilatory support, steroids and antibiotics.? Continue phenylephrine with map goal over 65. Bactroban applica tion to the nares bilaterally.?Avoid nephrotoxins. Albumin salt infusion 133 mL/hour. The patient does not appear to be septic but even though she does have acute kidney injury and anuria, she can not receive 30 mL/hour bolus as the patient has high risk of CHF. 2250 trop reported to be 1964. Patient will benefit of Heparin gtt ; at this point doubt she will be a candidate for a cath; cards consult in am. Discussed with Dr Katz agrees with full Hep gtt; repeat trop in 2 hours and ekg in am. Her platelets are 80,000, we will not give aspirin for now, hold statin due to elevated LFTs and no beta-zeke due to hypotension. Critical care time used for critical evaluation of this patient, diagnosis, treatment and coordination of care, review her records and documentation TOTAL CRITICAL CARE TIME? 45? MIN . discussion and coordination with consultants, completely separate from any procedures performed. . Patient's care was discussed in detail with Dr. Katz.? He is aware of all the above as well as the plan of care for this patient. . ??
[2025-01-25 21:27] LABS: Albumin Level 3.6 g/dL (3.5-5.0); Alkaline Phosphatase 87 U/L (39-117); Anion Gap 20 (12-20); Aspartate Amino Transferase 4986 U/L (5-31); Bilirubin Total 1.4 mg/dL (0.0-1.0); Blood Urea Nitrogen 28 mg/dL (9-16); Calcium 8.4 mg/dL (8.4-10.2); Carbon Dioxide 18 mmol/L (22-29); Chloride 109 mmol/L (96-108); Creatinine Clr Calc Pharmacy 28.6; Estimated Glomerular Filt Rate 30; Glucose Random 193 mg/dL (60-115); Potassium 4.9 mmol/L (3.3-5.1); SLIDE REVIEW MANUAL DIFF; Sodium 142 mmol/L (135-145)
[2025-01-25 21:31] LABS: Band Neutrophils Percent 14 % (3-5); Burr Cells 3+ (>5) /OIF; Monocytes Absolute Manual 0.2 X10*3/uL (0.1-1.2); Monocytes Percent Manual 1 % (2-11); Neutrophils Absolute Manual 23.4 X10*3/uL (2.0-8.3); Neutrophils Percent Manual 85 % (45-73); RBC Morphology NOTED
[2025-01-25 21:32] LABS: Basophilic Stippling 1+ (0-2) /OIF; Ovalocytes 1+ (5-14) /OIF
[2025-01-25 21:33] LABS: Platelet Estimate DECREASED (NORMAL); Platelet Morphology Comment NORMAL; Toxic Vacuolation PRESENT
[2025-01-25 21:34] LABS: Mean Platelet Volume 10.6 fL (9.4-12.3); Platelet Count 86 X10*3/uL (160-400)
[2025-01-25] MEDS: Chlorhexidine Gluc Oral Rinse 15 ML MOUTHWASH BUCCAL (21:36)
[2025-01-25] MEDS: Enoxaparin Sodium 60 MG/0.6 ML SYRINGE SUBCUT (21:39)
[2025-01-25 21:44] LABS: Alanine Aminotransferase 2976 U/L (0-31)
[2025-01-25] MEDS: Sodium Bicarbonate 8.4% 150 MEQ in Dextrose 5 % 850 ML IV (21:59)
[2025-01-25 22:12] LABS: ABG Refer to POC result
[2025-01-25 22:50] LABS: Troponin-I High Sensitivity 1964.5 ng/L (<3.5-17.0)
[2025-01-25] MEDS: Albumin Human 25 % 100 ML 133.33 ML IV ×2 (22:59→23:45)
[2025-01-25 23:14] LABS: Lactic Acid 4.1 mmol/L (0.5-2.0)
[2025-01-26] VITALS (23 sets, daily range): BP systolic 101–123; BP diastolic 71–91; PULSE 82–114; RESP 16–26; TEMP 32–37.1; O2SAT 90–96; BMI 23.9
[2025-01-26] MEDS: Heparin Sodium,Porcine/1/2NS 25,000 UNIT/250 ML IV.SOLN 8.85 UNIT IVCONT (00:07)
[2025-01-26 00:24] LABS: INTERNATIONAL NORM RATIO 1.8 (0.9-1.1); Prothrombin Time 20.6 SEC (10.9-12.4)
[2025-01-26 00:38] LABS: Troponin-I High Sensitivity 2370.9 ng/L (<3.5-17.0)
[2025-01-26 00:52] LABS: Partial Thromboplastin Time 31.4 SEC (26.0-36.8)
[2025-01-26 00:55] LABS: Reflex Lactate? Lactic Acid Added
[2025-01-26] MEDS: Norepinephrine Bitartrate/D5W 8 MG/250 ML PLAST..BAG 49.77 MG IVCONT (00:59)
[2025-01-26 01:49] LABS: ~Lactic Acid-LAB USE ONLY 4.4 mmol/L (0.5-2.0)
[2025-01-26] MEDS: propofoL 1,000 MG/100 ML VIAL 11.38 MG IVCONT ×2 (02:46→10:22)
--- NOTE | 2025-01-26 03:08 | PC.NURSE ---
Upon initial assessment at 1900- pt stuporous, minimally responsive to noxious stimuli. On BiPAP 12/5/35%, lips cyanotic, SpO2 80s, not over-breathing set rate. HALEY Nicole notified of pt status and to bedside, decision made to intubate. Given etomidate 20 mg IVP and rocuronium 30 mg IVP for RSI. Precedex gtt stopped and propofol gtt started for sedation per NOV. ETT #7.0, 21 cm at lip. OGT placed. L IJ TLC placed. All lines/tubes confirmed by pCXR. ABG ordered and drawn by RT- PA aware of critical results. Bicarb gtt ordered and started per NOV. CBC/BMP ordered and drawn- PA aware of critical troponin. EKG ordered and completed and heparin gtt ordered and started per NOV. Aflutter on tele, HR 80-90s, amio gtt infusing per NOV. Levophed gtt infusing and titrated to maintain MAP > 65. Extremities cool. +2 BLE edema. Right DP pulse and left AT pulse obtained via doppler, palpable B/L radial pulses. On ACVC settings. OGT clamped. No BM. Purewick in place with no output, bladder scan done at 0000 for 85 mL, PA aware. ?Stage III PI to coccyx, foam dressing in place, wound consult ordered. Repositioned in bed q2hrs with wedges/pillows. Bed locked in lowest position, alarm on. Family updated and aware of pt status/plan of care. See EMR/flowsheet for further details.
[2025-01-26 03:21] LABS: Reflex Lactate? 2 Y
[2025-01-26] MEDS: Sodium Bicarbonate 8.4% 150 MEQ in Dextrose 5 % 850 ML IV ×2 (03:53→09:37)
[2025-01-26] MEDS: methylPREDNISolone Sod Succ 40 MG/ML VIAL IVPUSH (03:53)
[2025-01-26 04:02] LABS: VBG Base Excess -3.8 mmol/L; VBG HCO3 23 mmol/L (22-26); VBG pCO2 51 mmHg; VBG pH 7.26 (7.32-7.43); VBG pO2 51 mmHg
[2025-01-26 04:22] LABS: Basophils Percent Auto 0.1 % (0-2); Hematocrit 36.2 % (37.0-47.0); Hemoglobin 11.6 g/dl (12.0-16.0); Imm Gran Abs Auto 0.18 X10*3/uL (0.00-0.03); Imm Gran Pct Auto 0.8 % (0.0-0.4); Lymphocytes Absolute Auto 0.6 X10*3/uL (1.2-4.9); Lymphocytes Percent Auto 2.6 % (20-40); MANUAL DIFF FLAG SCAN; Mean Corpuscular Hemoglobin 34.2 pg (27.0-33.0); Mean Corpuscular Volume 106.8 fL (80.0-98.0); Mean Platelet Volume 11.2 fL (9.4-12.3); Monocytes Absolute Auto 0.3 X10*3/uL (0.1-1.2); Monocytes Percent Auto 1.6 % (2-11); Neutrophils Absolute Auto 20.3 x10*3/uL (2.0-8.3); Neutrophils Percent Auto 94.9 % (45-73); Red Blood Count 3.39 X10*6/uL (4.20-5.50); Red Cell Distribution Width 14.6 % (11.0-16.0); SCAN SMEAR FLAG 1; White Blood Count 21.4 X10*3/uL (4.8-10.8)
[2025-01-26 04:24] LABS: INTERNATIONAL NORM RATIO 1.9 (0.9-1.1); Platelet Count 71 X10*3/uL (160-400)
[2025-01-26 04:46] LABS: Albumin Level 3.9 g/dL (3.5-5.0); Alkaline Phosphatase 66 U/L (39-117); Anion Gap 22 (12-20); Bilirubin Total 1.2 mg/dL (0.0-1.0); Blood Urea Nitrogen 32 mg/dL (9-16); Calcium 7.7 mg/dL (8.4-10.2); Carbon Dioxide 20 mmol/L (22-29); Chloride 102 mmol/L (96-108); Creatinine Clr Calc Pharmacy 25.9; Estimated Glomerular Filt Rate 27; Glucose Random 355 mg/dL (60-115); Magnesium 2.4 mg/dL (1.6-2.6); Phosphorus 6.6 mg/dL (2.7-4.5); Potassium 4.2 mmol/L (3.3-5.1); Sodium 140 mmol/L (135-145); Total Protein 5.7 g/dL (6.5-8.0); ~Lactic Acid-LAB USE ONLY 4.9 mmol/L (0.5-2.0)
[2025-01-26 05:25] LABS: Alanine Aminotransferase 4751 U/L (0-31)
[2025-01-26] MEDS: Norepinephrine Bitartrate/D5W 8 MG/250 ML PLAST..BAG 45.03 MG IVCONT (05:34)
[2025-01-26 05:35] LABS: Aspartate Amino Transferase > 5234 U/L (5-31)
[2025-01-26] MEDS: Insulin Lispro 100 UNIT/ML 3 ML VIAL SUBCUT (05:35)
[2025-01-26] MEDS: Pantoprazole Sodium 40 MG/10 ML VIAL IVPUSH (05:35)
[2025-01-26 06:39] LABS: Venous Blood Gas Refer to POC result
[2025-01-26 07:30] LABS: Troponin-I High Sensitivity 2636.2 ng/L (<3.5-17.0)
[2025-01-26] MEDS: levalbuterol HCL 1.25 MG/3 ML VIAL.NEB INHALE (07:55)
[2025-01-26] MEDS: Azithromycin 500 MG in 0.9 % Sodium Chloride 250 ML 125 MG IV (08:30)
--- NOTE | 2025-01-26 08:50 | CA_ITS ---
Transthoracic Echocardiogram Patient (Last, First, Middle): Patt Lezama A Gender: Female Date of : 1960 Age: 64 Procedure Date: 01/26/2025 Procedure Type: Transthoracic Echocardiogram Location: ICU Height: 162.56 cm Weight: 63.05 kg BSA: 1.68 m2 Heart Rate: bpm BP: 120 / 88 mmHg Petrologist: Referring MD: Ty Pérez MD Resident Buyer: Ty Pérez MD Symptoms: shock Study Quality: Fair ECG Rhythm: Atrial Fibrillation Conclusions: - 1. Severe LV systolic dysfunction with regional wall motion abnormality sparing basal segments most consistent with stress induced cardiomyopathy 2. RV systolic dysfunction especially of the lateral and apical wall also consistent with stress-induced cardiomyopathy 3. Moderate left atrial enlargement 4. Pumn-kp-abgrordr mitral regurgitation 5. No gross pericardial effusion Findings Left Ventricle Normal left ventricular cavity size. There is normal left ventricular wall thickness. The left ventricular systolic function is severely decreased. The visually estimated ejection fraction is between 25-30%. Diastolic function is indeterminate on the basis of available data. Wall Motion Rest Echo Findings The entire apex, the mid anterior, mid inferior, mid anterolateral, mid inferoseptal, mid anteroseptal, and mid inferolateral segments are akinetic. The basal anterolateral and basal anteroseptal segments are hyperkinetic. All other scored wall segments showed normal motion. Right Ventricle Normal right ventricular cavity size. The right ventricular free wall is hypokinetic, the lateral wall is normal, and the apex is akinetic. Atria The left atrium is moderately dilated. There is no evidence of interatrial shunt. The right atrium is mildly dilated. Aortic Valve The aortic valve structure and function is likely normal. There is no aortic valve stenosis. There is no aortic valve regurgitation. Mitral Valve There is mild anterior and posterior mitral leaflet thickening. There is mild to moderate mitral valve regurgitation. There is no mitral valve stenosis. Pulmonic Valve The pulmonic valve is likely normal. Tricuspid Valve Normal tricuspid valve structure. There is mild tricuspid valve regurgitation. The right ventricular systolic pressure is not calculated. Indeterminate right atrial pressure. Great Vessels All visible segments of the aorta are normal in size. The pulmonary artery was not well visualized. Venous The inferior vena cava is moderately dilated and does not collapse with inspiration. Pericardium/Pleural There is no evidence of pericardial effusion. Prior Study Comparison Changes noted compared to prior study dated: 03/06/2022. LV systolic function is severely reduced with multiple regional wall motion abnormality consistent with stress-induced cardiomyopathy Measurements 2D Linear Measurements IVSd: 0.97 0.6-0.9/0.6-1.0 cm LVIDd: 4.68 3.9-5.3/4.2-5.9 cm LVIDd Index: 2.79 2.4-3.2/2.2-3.1 cm/m2 LVIDs: 3.89 2.0-3.6 cm LVPWd: 1.10 0.7-1.1 cm Ao Root: 3.20 2.1-3.5 cm LA Diam: 5.10 2.7-3.8/3.0-4.0 cm LAIDs Index: 3.04 1.5-2.3 cm/m2 LV Mass: 213.10 67-162/88-224 g LV Mass Index: 126.85 43-95/49-115 g/m2 LVOT Diam: 1.90 3.0+(-)1.3 cm Mitral Valve MV Pk E: 0.82 MV Decel Time: 129.00 E'Lateral: 11.00 E'Medial: 4.13 E/E' Med: 19.90 E/E' Lat: 7.50 PHT: 38.00 MVA PHT: 5.79 Decel Todd: 6.39 Aortic Valve AoV Pk Erik: 0.93 AoV Mn Erik: 0.62 AoV VTI: 0.13 AoV Pk Grad: 3.00 Aov Mn Grad: 2.00 MELVA Cont.VTI: 1.54 LVOT LVOT Pk Erik: 0.45 LVOT Mn Erik: 0.28 LVOT VTI: 0.07 LVOT Pk Grad: 1.00 LVOT Mn Grad: 0.00 LVOT Diam: 1.90 LVOT Area: 2.84 Diastolic Function MV Pk E: 0.82 E'Medial: 4.13 E/E' Med: 19.90 E' Laterial: 11.00 E/E' Lat: 7.50 Right Ventricle TVS' Erik: 9.00 Tricuspid Valve TR Pk Erik: 2.73 TR Pk Grad: 30.00 Great Vessels Aorta Ao Root-2D: 3.20 2.0-3.7 cm Pulmonary Valve PV Pk Erik: 0.69 Peak PV Grad: 2.00 Updated in Other Vendor System with Status of Final Ty Pérez MD electronically signed on 01/26/2025 4:08:59 PM with status of Final
[2025-01-26 09:05] LABS: PTT Heparin Drip 49.5 SEC (53-77.9)
--- NOTE | 2025-01-26 09:10 | PM.CNCAR ---
History of Present Illness History of Present Illness Date of Service: 01/26/25 Requesting physician: Leonard Hoff Consult reason: atrial fibrillation, troponin elevation and other (Shock) Chief complaint: Hypoxic resp failure Narrative: I was consulted to see Patt urgently for suspected cardiogenic shock. She is a 64-year-old female with prior history of what appears to be COPD oxygen dependent, atrial fibrillation at least continuous atrial fibrillation since October of this year as documented by EKG from [facility], recent admission to [facility] with respiratory failure, recent echocardiogram in October at [facility] showing normal LV ejection fraction without any significant valvular abnormality. Patient presented to the ED with respiratory distress and was noted to be markedly hypoxemic and in respiratory distress. Initially treated with anxiolytics and Precedex and BiPAP. However repeat ABG done last evening showed persistent severe acidosis and patient remained with altered mental status and was decided to be put on respirator with mechanical ventilation. Remained persistently acidotic and seems like mostly metabolic acidosis as CO2 is relatively within normal limits with increased anion gap. Patient presented with rapid heart rate was note to be initially in atrial flutter with rapid ventricular response was started on IV amiodarone drip and subsequently has converted to atrial fibrillation with adequate rate control on amiodarone drip. Patient also was hypotensive currently on Levophed at 0.36. Overnight patient's urine output has decreased and her creatinine has gone up. Also noted to have significantly elevated liver enzymes consistent with shock liver. Patient also noted to have elevated cardiac markers consistent with myocardial injury. Patient remains on multiple drips at this point time. Currently intubated. History could not be obtained from her. History was mostly obtained from the chart and reviewing the overnight events. There was no documented history of prior coronary artery disease or myocardial infarction. She has been started on IV heparin drip because of elevated troponin atrial fibrillation. On her home meds which will confirmed, there was no mentioned of oral anticoagulation therapy. Cardiology consult was sought for persistent atrial fibrillation, elevated troponins and suspicion for cardiogenic shock. Her viral panel is suggestive of parainfluenza virus, currently on respiratory isolation. Review of Systems Review of Systems: Yes unobtainable due to endotracheal tube and Unobtainable due to mental condition PMFSH Past Medical History Medical History Tobacco use disorder Atrial fibrillation with rapid ventricular response Adrenal cancer Breast cancer COPD (chronic obstructive pulmonary disease) Social History Social History Household Members: Family and Children Household Members Other:: Daughter Housing: House Do you presently have visiting nurse or other home services: Yes Comment: overflow Patient Tobacco Use Status: Former Tobacco user Tobacco use type: Cigarette Cigarette Packs Per Day: 1.5 Cigarettes Per Day: 30.0 Years Smoked: 30 Smoked in Last 30 Days: No Use of substances other than those prescribed or required for medical reasons: Yes Substance Use Type: Marijuana Substance Use Frequency: Daily Last Used Substance: Days (ago) Currently Displaying Signs/Symptoms of Drug Intoxication Withdrawal: No Any prior treatment program specific to substance use: No Have you been hit, kicked, punched, or otherwise hurt by someone within the past year? If so, by whom?: No Do you feel safe in your current relationship?: No Current Relationship Is there a partner from a previous relationship who is making you feel unsafe now?: No Advance Directives: No Advance Directives Date on File: 03/02/22 Do you have a plan to hurt others: No Plan Recently lost weight without trying: Yes How much weight loss: 2-13 pounds Eating poorly because of decreased appetite: Yes Nutrition screen score: 4 Nutrition Risks: Poor intake 0-25% >4 days Patient : No : No Poor oral hygiene: No service: No Current occupational status: employed Meds Allergies Allergy/AdvReac Type Severity Reaction Status Date / Time Sulfa (Sulfonamide Allergy Anaphylaxis Verified 01/25/25 03:21 Antibiotics) Active Medications: Current Medications Albuterol Sulfate (Albuterol Sulfate (0.083%) 2.5 Mg/3 Ml Vial.Neb) 2.5 mg INHALE Q3H PRN PRN Reason: wheezing Last Admin: 01/25/25 08:54 Dose: 2.5 mg Ceftriaxone Sodium (Ceftriaxone Sodium 1 Gm Vial) 1 gm IVPUSH Q24H CAREY Chlorhexidine Gluconate (Chlorhexidine Gluc Oral Rinse 15 Ml Mouthwash) 15 ml BUCCAL TID CAREY Last Admin: 01/25/25 21:36 Dose: 15 ml Heparin Sodium (Porcine) (Heparin Sodium,Porcine 5,000 Unit/Ml Vial) 2,500 unit 40 unit/kg (2500 unit) IVPUSH PROTOCOL BOLUS PRN; Protocol PRN Reason: 40 unit/kg - Heparin Protocol Heparin Sodium (Porcine) (Heparin Sodium,Porcine 5,000 Unit/Ml Vial) 5,100 unit 80 unit/kg (5100 unit) IVPUSH PROTOCOL BOLUS PRN; Protocol PRN Reason: 80 unit/kg - Heparin Protocol Azithromycin 500 mg/ Sodium (Chloride) 250 mls @ 125 mls/hr IV DAILY CAREY Stop: 01/30/25 08:59 Amiodarone HCl 900 mg/ Sodium (Chloride) 518 mls @ 34.533 mls/hr IVCONT .Q15H1M CAREY; Protocol Last Infusion: 01/25/25 14:48 Dose: 0.5 mg/min, 17.27 mls/hr Dexmedetomidine HCl (Precedex) 400 mcg in 100 mls @ 0 mls/hr IVCONT .Q0M CAREY; Protocol Last Titration: 01/25/25 21:40 Dose: Infused Phenylephrine HCl 20 mg/ (Sodium Chloride) 252 mls @ 0 mls/hr IVCONT .Q0M CAREY; Protocol Last Titration: 01/25/25 16:51 Dose: Infused Norepinephrine Bitartrate (Levophed) 8 mg in 250 mls @ 0 mls/hr IVCONT .Q0M CAREY; Protocol Last Titration: 01/26/25 05:43 Dose: 0.36 mcg/kg/min, 42.66 mls/hr Propofol (Diprivan) 1,000 mg in 100 mls @ 0 mls/hr IVCONT .Q0M CAREY; Protocol Last Admin: 01/26/25 02:46 Dose: 30 mcg/kg/min, 11.38 mls/hr Sodium Bicarbonate 150 meq/ (Dextrose) 1,000 mls @ 150 mls/hr IV .Q6H40M CAREY Last Admin: 01/26/25 03:53 Dose: 150 mls/hr Heparin Sodium/Sodium Chloride (Heparin Sodium,Porcine/1/2ns) 25,000 unit in 250 mls @ 0 mls/hr IVCONT .Q0M CAREY; Protocol Last Titration: 01/26/25 00:56 Dose: 14 units/kg/hr, 8.85 mls/hr Insulin Human Lispro (Insulin Lispro 100 Unit/Ml 3 Ml Vial) 0 unit SUBCUT Q6H CAREY; Protocol Last Admin: 01/26/25 05:35 Dose: 10 unit Levalbuterol HCl (Levalbuterol Hcl 1.25 Mg/3 Ml Vial.Neb) 1.25 mg INHALE RTID [facility] Last Admin: 01/26/25 07:55 Dose: 1.25 mg Methylprednisolone Sodium Succinate (Methylprednisolone Sod Succ 40 Mg/Ml Vial) 40 mg IVPUSH Q8H [facility] Last Admin: 01/26/25 03:53 Dose: 40 mg Mupirocin (Mupirocin 2 % Oint 22 Gm Tube) 1 appl TOPICAL TID [facility]; Protocol Pantoprazole Sodium (Pantoprazole Sodium 40 Mg/10 Ml Vial) 40 mg IVPUSH DAILY@0630 [facility] Last Admin: 01/26/25 05:35 Dose: 40 mg Sodium Chloride (0.9 % Sodium Chloride Flush 3 Ml Syringe) 3 ml IVFLUSH QSHIFT [facility] Home Medications ?Medication ?Instructions ?Recorded ?Confirmed ?Last Taken ?Type albuterol sulfate 90 mcg/actuation 2 inh inhalation Q6H PRN Shortness 03/01/22 01/25/25 02/28/22 History aerosol inhaler Of Breath Or Wheezing fluticasone propionate 50 1 spray intranasal BID PRN Allergy 03/01/22 01/25/25 02/28/22 History mcg/actuation nasal Symptoms spray,suspension ipratropium 0.5 mg-albuterol 3 mg 3 ml inhalation BID PRN Shortness 03/01/22 01/25/25 02/28/22 History (2.5 mg base)/3 mL nebulization Of Breath Or Wheezing soln prednisone 5 mg tablet 1 tab PO DAILY 03/01/22 01/25/25 02/28/22 History albuterol sulfate 2.5 mg/3 mL 2.5 mg inhalation QID PRN dyspnea 01/25/25 01/25/25 Unknown History (0.083 %) solution for nebulization ascorbic acid (vitamin C) 500 mg 500 mg PO DAILY 01/25/25 01/25/25 Unknown History tablet (Vitamin C) buprenorphine 8 mg-naloxone 2 mg 1 film sublingual DAILY 01/25/25 01/25/25 Unknown History sublingual film cetirizine 10 mg tablet 10 mg PO DAILY 01/25/25 01/25/25 Unknown History diltiazem HCl 180 mg capsule,24 180 mg PO DAILY 01/25/25 01/25/25 Unknown History hr,extended release ergocalciferol (vitamin D2) 1,250 1,250 mcg PO MO 01/25/25 01/25/25 Unknown History mcg (50,000 unit) capsule famotidine 40 mg tablet 40 mg PO BID 01/25/25 01/25/25 Unknown History ferrous sulfate 325 mg (65 mg 325 mg PO Q48H 01/25/25 01/25/25 Unknown History iron) tablet (FeroSul) fluticasone fur. 100 mcg-umeclid 1 inh inhalation DAILY 01/25/25 01/25/25 Unknown History 62.5 mcg-vilant 25 mcg inhalat.powder (Trelegy Ellipta) multivitamin 1 tab PO DAILY 01/25/25 01/25/25 Unknown History pregabalin 25 mg capsule 50 mg PO Q12H 01/25/25 01/25/25 Unknown History Physical Exam Vital Signs: Vital Signs: Last Vital Signs Temp 98.4 F 01/26/25 08:00 Pulse 91 01/26/25 08:00 Resp 22 H 01/26/25 08:00 BP 120/88 01/26/25 08:00 Pulse Ox 94 01/26/25 08:00 O2 Del Method Mechanical Ventil ation 01/26/25 08:00 FiO2 40 01/26/25 08:00 BMI result Body Mass Index 23.9 Const: General: other ( Intubated and sedated) Nutritional Appearance: underweight HEENT: Head: Yes normocephalic and Yes atraumatic Neck: Neck: Yes trachea midline, Yes supple and Yes no JVD Resp: Other: on vent. Auscultation: clear to auscultation bilaterally ( Anteriorly and laterally) Cardio: Jugular venous distension: no JVD Rhythm: abnormal rhythm irregularly irregular Heart sounds: S1 normal heart sound present, S2 normal heart sound present, no click, no gallops and no murmurs GI: Auscultation: normal bowel sounds Skin: General skin exam: ecchymosis Neuro: General: other ( not evaluated) Extrem: General: Yes no clubbing, cyanosis or edema and Yes other ( peripheral perfusion is low) Objective Labs and Meds 01/26/25 03:51 01/26/25 03:51 Lab results: Laboratory Results - last 24 hr 01/25/25 01/25/25 01/25/25 08:50 10:48 11:26 WBC RBC Hgb Hct MCV MCH MCHC RDW Plt Count MPV Immature Gran % (Auto) Neut % (Auto) Lymph % (Auto) [place] % (Auto) Eos % (Auto) Baso % (Auto) Lymph # (Auto) [place] # (Auto) Eos # (Auto) Baso # (Auto) Abs Immat Gran (auto) Absolute Neuts (auto) Absolute Nucleated RBC Nucleated RBC % (auto) Neutrophils % (Manual) Band Neutrophils % Monocytes % (Manual) Abs Neuts (Manual) Monocytes # (Manual) Toxic Vacuolation Platelet Estimate Plt Morphology Comment RBC Morphology Basophilic Stippling Ovalocytes Lonnie Cells Smear Tech's Comments PT INR APTT aPTT Heparin Protocol O2 Saturation ABG pH at Pt Temp ABG pCO2 at Pt Temp ABG pO2 at Pt Temp ABG HCO3 ABG Base Excess (Actual) VBG pH VBG pCO2 VBG pO2 VBG HCO3 VBG O2 Saturation VBG Base Excess Sodium Potassium Chloride Carbon Dioxide Anion Gap BUN Creatinine Estim Creat Clear Calc Estimated GFR Random Glucose Lactic Acid Lactic Acid F/U @ 2Hr 3.8 H* Lactic Acid F/U @ 4Hr 4.7 H* Calcium Phosphorus Magnesium Total Bilirubin AST ALT Alkaline Phosphatase Troponin I High Sens Total Protein Albumin Nasal Screen MRSA (PCR) NEGATIVE Nasal S. aureus Screen POSITIVE A Nasal MRSA/S.aureus Interp SEE NOTE Respiratory Panel Vitale See Note Adenovirus (Rapid PCR) Not Detected B.pert (TEM-PCR) Not Detected B.parapertussis DNA PCR Not Detected C. pneumoniae DNA (PCR) Not Detected Coronavirus OC43 (PCR) Not Detected Coronavirus HKU1 (PCR) Not Detected Coronavirus 229E (PCR) Not Detected Coronavirus NL63 (PCR) Not Detected Human Metapneumovir PCR Not Detected Influenza A (RT-PCR) Not Detected Influenza A (H1) PCR Not Detected Influ A (H1/09) PCR Not Detected Influenza A (H3) PCR Not Detected Influenza B (RT-PCR) Not Detected M. pneumoniae (PCR) Not Detected Parainfluenza 1 (PCR) Not Detected Parainfluenza 2 (PCR) Not Detected Parainfluenza 3 (PCR) Detected A Parainfluenza 4 (PCR) Not Detected RSV (PCR) Not Detected Entero/Rhino (PCR) Not Detected SARS-CoV-2 RNA (RT-PCR) Not Detected 01/25/25 01/25/25 01/25/25 19:58 21:01 22:54 WBC 23.6 H RBC 3.78 L Hgb 13.0 Hct 41.5 MCV 109.8 H MCH 34.4 H MCHC 31.3 RDW 14.6 Plt Count 86 L D MPV 10.6 Immature Gran % (Auto) Cancelled Neut % (Auto) Cancelled Lymph % (Auto) Cancelled [place] % (Auto) Cancelled Eos % (Auto) Cancelled Baso % (Auto) Cancelled Lymph # (Auto) Cancelled [place] # (Auto) Cancelled Eos # (Auto) Cancelled Baso # (Auto) Cancelled Abs Immat Gran (auto) Cancelled Absolute Neuts (auto) Cancelled Absolute Nucleated RBC 0.000 Nucleated RBC % (auto) 0.0 Neutrophils % (Manual) 85 H Band Neutrophils % 14 H Monocytes % (Manual) 1 L Abs Neuts (Manual) 23.4 H Monocytes # (Manual) 0.2 Toxic Vacuolation PRESENT Platelet Estimate DECREASED Plt Morphology Comment NORMAL RBC Morphology NOTED Basophilic Stippling 1+ (0-2) Ovalocytes 1+ (5-14) Lonnie Cells 3+ (>5) Smear Tech's Comments MANUAL DIFF PT INR APTT aPTT Heparin Protocol O2 Saturation 100.0 ABG pH at Pt Temp 7.16 L* ABG pCO2 at Pt Temp 45 ABG pO2 at Pt Temp 368 H ABG HCO3 16 L ABG Base Excess (Actual) -11.8 VBG pH VBG pCO2 VBG pO2 VBG HCO3 VBG O2 Saturation VBG Base Excess Sodium 142 Potassium 4.9 Chloride 109 H Carbon Dioxide 18 L Anion Gap 20 BUN 28 H Creatinine 1.71 H Estim Creat Clear Calc 28.6 Estimated GFR 30 Random Glucose 193 H Lactic Acid 4.1 H* Lactic Acid F/U @ 2Hr Lactic Acid F/U @ 4Hr Calcium 8.4 D Phosphorus Magnesium Total Bilirubin 1.4 H AST 4986 H ALT 2976 H Alkaline Phosphatase 87 Troponin I High Sens 1964.5 H* D Total Protein 6.0 L Albumin 3.6 Nasal Screen MRSA (PCR) Nasal S. aureus Screen Nasal MRSA/S.aureus Interp Respiratory Panel Vitale Adenovirus (Rapid PCR) B.pert (TEM-PCR) B.parapertussis DNA PCR C. pneumoniae DNA (PCR) Coronavirus OC43 (PCR) Coronavirus HKU1 (PCR) Coronavirus 229E (PCR) Coronavirus NL63 (PCR) Human Metapneumovir PCR Influenza A (RT-PCR) Influenza A (H1) PCR Influ A (H1/09) PCR Influenza A (H3) PCR Influenza B (RT-PCR) M. pneumoniae (PCR) Parainfluenza 1 (PCR) Parainfluenza 2 (PCR) Parainfluenza 3 (PCR) Parainfluenza 4 (PCR) RSV (PCR) Entero/Rhino (PCR) SARS-CoV-2 RNA (RT-PCR) 01/25/25 01/26/25 01/26/25 23:54 01:19 03:51 WBC 21.4 H RBC 3.39 L Hgb 11.6 L Hct 36.2 L MCV 106.8 H MCH 34.2 H MCHC 32.0 RDW 14.6 Plt Count 71 L MPV 11.2 Immature Gran % (Auto) 0.8 H Neut % (Auto) 94.9 H Lymph % (Auto) 2.6 L [place] % (Auto) 1.6 L Eos % (Auto) 0.0 Baso % (Auto) 0.1 Lymph # (Auto) 0.6 L [place] # (Auto) 0.3 Eos # (Auto) 0.0 Baso # (Auto) 0.0 Abs Immat Gran (auto) 0.18 H Absolute Neuts (auto) 20.3 H Absolute Nucleated RBC 0.000 Nucleated RBC % (auto) 0.0 Neutrophils % (Manual) Band Neutrophils % Monocytes % (Manual) Abs Neuts (Manual) Monocytes # (Manual) Toxic Vacuolation Platelet Estimate Plt Morphology Comment RBC Morphology Basophilic Stippling Ovalocytes Lonnie Cells Smear Tech's Comments PT 20.6 H D 22.0 H INR 1.8 H 1.9 H APTT 31.4 aPTT Heparin Protocol Cancelled O2 Saturation ABG pH at Pt Temp ABG pCO2 at Pt Temp ABG pO2 at Pt Temp ABG HCO3 ABG Base Excess (Actual) VBG pH VBG pCO2 VBG pO2 VBG HCO3 VBG O2 Saturation VBG Base Excess Sodium 140 Potassium 4.2 Chloride 102 Carbon Dioxide 20 L Anion Gap 22 H BUN 32 H Creatinine 1.89 H Estim Creat Clear Calc 25.9 Estimated GFR 27 Random Glucose 355 H* Lactic Acid Lactic Acid F/U @ 2Hr 4.4 H* Lactic Acid F/U @ 4Hr 4.9 H* Calcium 7.7 L D Phosphorus 6.6 H Magnesium 2.4 Total Bilirubin 1.2 H AST > 5234 H ALT 4751 H Alkaline Phosphatase 66 Troponin I High Sens 2370.9 H* 2636.2 H* Total Protein 5.7 L Albumin 3.9 Nasal Screen MRSA (PCR) Nasal S. aureus Screen Nasal MRSA/S.aureus Interp Respiratory Panel Vitale Adenovirus (Rapid PCR) B.pert (TEM-PCR) B.parapertussis DNA PCR C. pneumoniae DNA (PCR) Coronavirus OC43 (PCR) Coronavirus HKU1 (PCR) Coronavirus 229E (PCR) Coronavirus NL63 (PCR) Human Metapneumovir PCR Influenza A (RT-PCR) Influenza A (H1) PCR Influ A (H1/09) PCR Influenza A (H3) PCR Influenza B (RT-PCR) M. pneumoniae (PCR) Parainfluenza 1 (PCR) Parainfluenza 2 (PCR) Parainfluenza 3 (PCR) Parainfluenza 4 (PCR) RSV (PCR) Entero/Rhino (PCR) SARS-CoV-2 RNA (RT-PCR) 01/26/25 01/26/25 03:58 08:40 WBC RBC Hgb Hct MCV MCH MCHC RDW Plt Count MPV Immature Gran % (Auto) Neut % (Auto) Lymph % (Auto) [place] % (Auto) Eos % (Auto) Baso % (Auto) Lymph # (Auto) [place] # (Auto) Eos # (Auto) Baso # (Auto) Abs Immat Gran (auto) Absolute Neuts (auto) Absolute Nucleated RBC Nucleated RBC % (auto) Neutrophils % (Manual) Band Neutrophils % Monocytes % (Manual) Abs Neuts (Manual) Monocytes # (Manual) Toxic Vacuolation Platelet Estimate Plt Morphology Comment RBC Morphology Basophilic Stippling Ovalocytes Goff Cells Smear Tech's Comments PT INR APTT aPTT Heparin Protocol 49.5 L O2 Saturation ABG pH at Pt Temp ABG pCO2 at Pt Temp ABG pO2 at Pt Temp ABG HCO3 ABG Base Excess (Actual) VBG pH 7.26 L VBG pCO2 51 VBG pO2 51 VBG HCO3 23 VBG O2 Saturation 72.0 VBG Base Excess -3.8 Sodium Potassium Chloride Carbon Dioxide Anion Gap BUN Creatinine Estim Creat Clear Calc Estimated GFR Random Glucose Lactic Acid Lactic Acid F/U @ 2Hr Lactic Acid F/U @ 4Hr Calcium Phosphorus Magnesium Total Bilirubin AST ALT Alkaline Phosphatase Troponin I High Sens Total Protein Albumin Nasal Screen MRSA (PCR) Nasal S. aureus Screen Nasal MRSA/S.aureus Interp Respiratory Panel Vitale Adenovirus (Rapid PCR) B.pert (TEM-PCR) B.parapertussis DNA PCR C. pneumoniae DNA (PCR) Coronavirus OC43 (PCR) Coronavirus HKU1 (PCR) Coronavirus 229E (PCR) Coronavirus NL63 (PCR) Human Metapneumovir PCR Influenza A (RT-PCR) Influenza A (H1) PCR Influ A (H1) PCR Influenza A (H3) PCR Influenza B (RT-PCR) M. pneumoniae (PCR) Parainfluenza 1 (PCR) Parainfluenza 2 (PCR) Parainfluenza 3 (PCR) Parainfluenza 4 (PCR) RSV (PCR) Entero/Rhino (PCR) SARS-CoV-2 RNA (RT-PCR) Assessment and Plan (1) Shock: Status: Acute patient is acutely ill with findings suggestive of shock with multisystem organ involvement with both kidneys and liver showing ischemic damage probably due to persistent hypotension/metabolic acidosis and poor perfusion. Patient also has rising troponin which could be secondary to stress-induced cardiomyopathy and/or sepsis/ acidosis related to myocardial depression and injury. Primary myocardial infarction is less likely given no significant changes in the EKG. Definitely there is possibility of acute LV systolic dysfunction from stress-induced cardiomyopathy or sepsis induced cardiomyopathy. Echo would certainly help to guide treatment. If she has significant wall motion abnormality and severe LV systolic dysfunction which is new onset could potentially explain some of the findings of shock as well as poor liver and kidney perfusion and persistent acidosis although atrial fibrillation by itself should not likely cause this problem. Atrial fibrillation is at least persistent for the last 3 months and rapid heart rate is most likely related to her acute illness. Possibility of sepsis syndrome especially viral sepsis syndrome is also likely which can all cause similar findings of hypotension and ischemic hepatitis and kidney injury as well as myocardial injury. Continue supportive care. Blood pressure currently is optimized on vasopressor therapy and will continue with supportive care. Continue to treat acidosis aggressively, currently on bicarb drip as well as adjusted went setting to improve and compensate for metabolic acidosis. Will obtain an echocardiogram to assess LV systolic and diastolic function to assess and get a feel for her filling pressures. Continue amiodarone for rate control for atrial fibrillation. Will continue with IV heparin for now given her myocardial injury and/or atrial fibrillation. Overall prognosis is guarded. Will continue to follow with you. Greater than 40 minutes was spent in managing her care Procedures Date of Service Date of Service: 01/26/25
[2025-01-26] MEDS: 0.9 % Sodium Chloride Flush 3 ML SYRINGE IVFLUSH (09:35)
[2025-01-26] MEDS: Chlorhexidine Gluc Oral Rinse 15 ML MOUTHWASH BUCCAL (09:36)
[2025-01-26] MEDS: cefTRIAXone sodium 1 GM VIAL IVPUSH (09:36)
[2025-01-26] MEDS: Mupirocin 2 % Oint 22 GM TUBE 1 APPL TOPICAL (09:37)
[2025-01-26] MEDS: Heparin Sodium,Porcine 5,000 UNIT/ML VIAL 2500 UNIT IVPUSH (10:10)
[2025-01-26] MEDS: Amiodarone HCL 900 MG in 0.9 % Sodium Chloride 500 ML 17.27 MG IVCONT (10:14)
[2025-01-26] MEDS: Norepinephrine Bitartrate/D5W 8 MG/250 ML PLAST..BAG 42.66 MG IVCONT (10:21)
--- NOTE | 2025-01-26 10:43 | MHC.CLN ---
PT IS INTUBATED AND SEDATED PT WITH INCREASED NUTRITION RISK R/T PRESSURE INJURY PT IS CURRENTLY NPO DISCUSSED AT ROUNDS WITH MD -TO REMAIN NPO TODAY IF TF NEEDED; RECOMMEND PROMOTE AT MAX GOAL RATE 65ML/HR TO PROVIDE 1560KCALS (1860KCALS WITH SEDATION; 29KCALS/KG), 97.5G PROTEIN (1.5G/KG), 1309ML FREE WATER FROM FORMULA FOLLOWING WITH TEAM SEE ALSO FULL CLINICAL NUTRITION ASSESSMENT
--- NOTE | 2025-01-26 11:08 | PM.DS ---
DS: Providers Provider Date of Service: 01/26/25 Date of admission: 01/25/25 06:53 Date of discharge: 01/26/25 Primary care physician: Unknown Physician Consults: 01/25/25 09:41 Consult to Wound Care Routine Reason for consultation: Pressure Injury 01/26/25 07:00 Consult to Cardiology Routine Consulting Provider: [facility] Reason for consultation: cardiogenic shock Has provider been notified: No DS: Transfer Hospital Acceptance Reason for Transfer: Advanced heart failure evaluation Name of Facility: [facility] Accepting Provider: Dr. Carosn DS: Diagnosis Discharge Diagnosis (1) Cardiogenic shock: Status: Acute (2) Atrial fibrillation with rapid ventricular response: Status: Acute (3) Ischemic hepatitis: Status: Acute (4) ATN (acute tubular necrosis): Status: Acute (5) Acute on chronic respiratory failure with hypoxemia: Status: Acute (6) Metabolic acidosis: Status: Acute (7) Breast cancer: Status: Acute (8) Adrenal cancer: Status: Acute (9) COPD (chronic obstructive pulmonary disease): Status: Acute DS: Summary Hospital Course Hospital Course: 64-year-old lady with underlying COPD on 2 L of oxygen, AFib, congestive heart failure, breast cancer, adrenal cancer on glucocorticoid replacement with prednisone 5 mg daily admitted on 01/25/2025 with dyspnea and respiratory distress requiring intubation and ventilatory support. Patient also noted to have AFib with RVR requiring amiodarone load and drip, shock requiring pressor support, likely cardiogenic in nature with resultant ATN and ischemic hepatitis. Patient was started on heparin drip, stress dose hydrocortisone, and empiric antibiotics. 2D echocardiogram demonstrated reduced ejection fraction from prior and takotsubo physiology. Patient was evaluated by Cardiology service and request for transfer to [facility] CCU was placed and granted. Discharge medications: Propofol drip, Levophed drip, heparin drip, amiodarone drip, bicarbonate drip, hydrocortisone 100 mg IV q.8, ceftriaxone 1 g IV daily Time Attestation Discharge Coordination Time (in mins): 60 minutes Quality: Safe Use of Opioids Does Pt have an Active Cancer Diagnosis on the Problem List?: Yes Opioid Measure Date for [facility] Report: 12/27/24 Opioid Measure Time for [facility] Report: 11:15 Quality: Stroke Does the patient have a stroke diagnosis?: No Physical Exam Vital Signs: Vital Signs: Last Vital Signs Temp 98.2 F 01/26/25 10:00 Pulse 113 H 01/26/25 10:21 Resp 26 H 01/26/25 10:00 BP 101/71 01/26/25 10:21 Pulse Ox 96 01/26/25 10:00 O2 Del Method Mechanical Ventil ation 01/26/25 10:00 FiO2 40 01/26/25 10:00 BMI result Body Mass Index 23.9 Const: General: no acute distress and other (Sedated on ventilatory support) Eyes: Sclerae: sclerae normal EOM: EOMs intact bilaterally Neck: Neck: Yes no lymphadenopathy, Yes trachea midline and Yes supple Resp: Auscultation: crackles (Mild bibasilar) Cardio: Rate: regular rate Rhythm: abnormal rhythm regularly irregular Heart sounds: no gallops, no murmurs and no rubs GI: Palpation (GI): Soft to palpation and Other GI palpation findings present ( Nontender) Auscultation: normal bowel sounds Extrem: General: No clubbing, No cyanosis and Yes edema (1+ bilateral) DS: Data Data Completed and Pending Labs on day of discharge: Laboratory Results - last 24 hr 01/25/25 01/25/25 01/25/25 10:48 11:26 19:58 WBC RBC Hgb Hct MCV MCH MCHC RDW Plt Count MPV Immature Gran % (Auto) Neut % (Auto) Lymph % (Auto) Davis % (Auto) Eos % (Auto) Baso % (Auto) Lymph # (Auto) Davis # (Auto) Eos # (Auto) Baso # (Auto) Abs Immat Gran (auto) Absolute Neuts (auto) Absolute Nucleated RBC Nucleated RBC % (auto) Neutrophils % (Manual) Band Neutrophils % Monocytes % (Manual) Abs Neuts (Manual) Monocytes # (Manual) Toxic Vacuolation Platelet Estimate Plt Morphology Comment RBC Morphology Basophilic Stippling Ovalocytes Lonnie Cells Smear Tech's Comments PT INR APTT aPTT Heparin Protocol O2 Saturation 100.0 ABG pH at Pt Temp 7.16 L* ABG pCO2 at Pt Temp 45 ABG pO2 at Pt Temp 368 H ABG HCO3 16 L ABG Base Excess (Actual) -11.8 VBG pH VBG pCO2 VBG pO2 VBG HCO3 VBG O2 Saturation VBG Base Excess Sodium Potassium Chloride Carbon Dioxide Anion Gap BUN Creatinine Estim Creat Clear Calc Estimated GFR Random Glucose Lactic Acid Lactic Acid F/U @ 2Hr Lactic Acid F/U @ 4Hr 4.7 H* Calcium Phosphorus Magnesium Total Bilirubin AST ALT Alkaline Phosphatase Troponin I High Sens Total Protein Albumin Nasal Screen MRSA (PCR) NEGATIVE Nasal S. aureus Screen POSITIVE A Nasal MRSA/S.aureus Interp SEE NOTE Respiratory Panel Vitale See Note Adenovirus (Rapid PCR) Not Detected B.pert (TEM-PCR) Not Detected B.parapertussis DNA PCR Not Detected C. pneumoniae DNA (PCR) Not Detected Coronavirus OC43 (PCR) Not Detected Coronavirus HKU1 (PCR) Not Detected Coronavirus 229E (PCR) Not Detected Coronavirus NL63 (PCR) Not Detected Human Metapneumovir PCR Not Detected Influenza A (RT-PCR) Not Detected Influenza A (H1) PCR Not Detected Influ A (H1/09) PCR Not Detected Influenza A (H3) PCR Not Detected Influenza B (RT-PCR) Not Detected M. pneumoniae (PCR) Not Detected Parainfluenza 1 (PCR) Not Detected Parainfluenza 2 (PCR) Not Detected Parainfluenza 3 (PCR) Detected A Parainfluenza 4 (PCR) Not Detected RSV (PCR) Not Detected Entero/Rhino (PCR) Not Detected SARS-CoV-2 RNA (RT-PCR) Not Detected 01/25/25 01/25/25 01/25/25 21:01 22:54 23:54 WBC 23.6 H RBC 3.78 L Hgb 13.0 Hct 41.5 MCV 109.8 H MCH 34.4 H MCHC 31.3 RDW 14.6 Plt Count 86 L D MPV 10.6 Immature Gran % (Auto) Cancelled Neut % (Auto) Cancelled Lymph % (Auto) Cancelled Davis % (Auto) Cancelled Eos % (Auto) Cancelled Baso % (Auto) Cancelled Lymph # (Auto) Cancelled Davis # (Auto) Cancelled Eos # (Auto) Cancelled Baso # (Auto) Cancelled Abs Immat Gran (auto) Cancelled Absolute Neuts (auto) Cancelled Absolute Nucleated RBC 0.000 Nucleated RBC % (auto) 0.0 Neutrophils % (Manual) 85 H Band Neutrophils % 14 H Monocytes % (Manual) 1 L Abs Neuts (Manual) 23.4 H Monocytes # (Manual) 0.2 Toxic Vacuolation PRESENT Platelet Estimate DECREASED Plt Morphology Comment NORMAL RBC Morphology NOTED Basophilic Stippling 1+ (0-2) Ovalocytes 1+ (5-14) [place] Cells 3+ (>5) Smear Tech's Comments MANUAL DIFF PT 20.6 H D INR 1.8 H APTT 31.4 aPTT Heparin Protocol Cancelled O2 Saturation ABG pH at Pt Temp ABG pCO2 at Pt Temp ABG pO2 at Pt Temp ABG HCO3 ABG Base Excess (Actual) VBG pH VBG pCO2 VBG pO2 VBG HCO3 VBG O2 Saturation VBG Base Excess Sodium 142 Potassium 4.9 Chloride 109 H Carbon Dioxide 18 L Anion Gap 20 BUN 28 H Creatinine 1.71 H Estim Creat Clear Calc 28.6 Estimated GFR 30 Random Glucose 193 H Lactic Acid 4.1 H* Lactic Acid F/U @ 2Hr Lactic Acid F/U @ 4Hr Calcium 8.4 D Phosphorus Magnesium Total Bilirubin 1.4 H AST 4986 H ALT 2976 H Alkaline Phosphatase 87 Troponin I High Sens 1964.5 H* D 2370.9 H* Total Protein 6.0 L Albumin 3.6 Nasal Screen MRSA (PCR) Nasal S. aureus Screen Nasal MRSA/S.aureus Interp Respiratory Panel Vitale Adenovirus (Rapid PCR) B.pert (TEM-PCR) B.parapertussis DNA PCR C. pneumoniae DNA (PCR) Coronavirus OC43 (PCR) Coronavirus HKU1 (PCR) Coronavirus 229E (PCR) Coronavirus NL63 (PCR) Human Metapneumovir PCR Influenza A (RT-PCR) Influenza A (H1) PCR Influ A (H1/09) PCR Influenza A (H3) PCR Influenza B (RT-PCR) M. pneumoniae (PCR) Parainfluenza 1 (PCR) Parainfluenza 2 (PCR) Parainfluenza 3 (PCR) Parainfluenza 4 (PCR) RSV (PCR) Entero/Rhino (PCR) SARS-CoV-2 RNA (RT-PCR) 01/26/25 01/26/25 01/26/25 01:19 03:51 03:58 WBC 21.4 H RBC 3.39 L Hgb 11.6 L Hct 36.2 L MCV 106.8 H MCH 34.2 H MCHC 32.0 RDW 14.6 Plt Count 71 L MPV 11.2 Immature Gran % (Auto) 0.8 H Neut % (Auto) 94.9 H Lymph % (Auto) 2.6 L Davis % (Auto) 1.6 L Eos % (Auto) 0.0 Baso % (Auto) 0.1 Lymph # (Auto) 0.6 L Davis # (Auto) 0.3 Eos # (Auto) 0.0 Baso # (Auto) 0.0 Abs Immat Gran (auto) 0.18 H Absolute Neuts (auto) 20.3 H Absolute Nucleated RBC 0.000 Nucleated RBC % (auto) 0.0 Neutrophils % (Manual) Band Neutrophils % Monocytes % (Manual) Abs Neuts (Manual) Monocytes # (Manual) Toxic Vacuolation Platelet Estimate Plt Morphology Comment RBC Morphology Basophilic Stippling Ovalocytes [place] Cells Smear Tech's Comments PT 22.0 H INR 1.9 H APTT aPTT Heparin Protocol O2 Saturation ABG pH at Pt Temp ABG pCO2 at Pt Temp ABG pO2 at Pt Temp ABG HCO3 ABG Base Excess (Actual) VBG pH 7.26 L VBG pCO2 51 VBG pO2 51 VBG HCO3 23 VBG O2 Saturation 72.0 VBG Base Excess -3.8 Sodium 140 Potassium 4.2 Chloride 102 Carbon Dioxide 20 L Anion Gap 22 H BUN 32 H Creatinine 1.89 H Estim Creat Clear Calc 25.9 Estimated GFR 27 Random Glucose 355 H* Lactic Acid Lactic Acid F/U @ 2Hr 4.4 H* Lactic Acid F/U @ 4Hr 4.9 H* Calcium 7.7 L D Phosphorus 6.6 H Magnesium 2.4 Total Bilirubin 1.2 H AST > 5234 H ALT 4751 H Alkaline Phosphatase 66 Troponin I High Sens 2636.2 H* Total Protein 5.7 L Albumin 3.9 Nasal Screen MRSA (PCR) Nasal S. aureus Screen Nasal MRSA/S.aureus Interp Respiratory Panel Vitale Adenovirus (Rapid PCR) B.pert (TEM-PCR) B.parapertussis DNA PCR C. pneumoniae DNA (PCR) Coronavirus OC43 (PCR) Coronavirus HKU1 (PCR) Coronavirus 229E (PCR) Coronavirus NL63 (PCR) Human Metapneumovir PCR Influenza A (RT-PCR) Influenza A (H1) PCR Influ A (H1/09) PCR Influenza A (H3) PCR Influenza B (RT-PCR) M. pneumoniae (PCR) Parainfluenza 1 (PCR) Parainfluenza 2 (PCR) Parainfluenza 3 (PCR) Parainfluenza 4 (PCR) RSV (PCR) Entero/Rhino (PCR) SARS-CoV-2 RNA (RT-PCR) 01/26/25 08:40 WBC RBC Hgb Hct MCV MCH MCHC RDW Plt Count MPV Immature Gran % (Auto) Neut % (Auto) Lymph % (Auto) Davis % (Auto) Eos % (Auto) Baso % (Auto) Lymph # (Auto) Davis # (Auto) Eos # (Auto) Baso # (Auto) Abs Immat Gran (auto) Absolute Neuts (auto) Absolute Nucleated RBC Nucleated RBC % (auto) Neutrophils % (Manual) Band Neutrophils % Monocytes % (Manual) Abs Neuts (Manual) Monocytes # (Manual) Toxic Vacuolation Platelet Estimate Plt Morphology Comment RBC Morphology Basophilic Stippling Ovalocytes Lonnie Cells Smear Tech's Comments PT INR APTT aPTT Heparin Protocol 49.5 L O2 Saturation ABG pH at Pt Temp ABG pCO2 at Pt Temp ABG pO2 at Pt Temp ABG HCO3 ABG Base Excess (Actual) VBG pH VBG pCO2 VBG pO2 VBG HCO3 VBG O2 Saturation VBG Base Excess Sodium Potassium Chloride Carbon Dioxide Anion Gap BUN Creatinine Estim Creat Clear Calc Estimated GFR Random Glucose Lactic Acid Lactic Acid F/U @ 2Hr Lactic Acid F/U @ 4Hr Calcium Phosphorus Magnesium Total Bilirubin AST ALT Alkaline Phosphatase Troponin I High Sens Total Protein Albumin Nasal Screen MRSA (PCR) Nasal S. aureus Screen Nasal MRSA/S.aureus Interp Respiratory Panel Vitale Adenovirus (Rapid PCR) B.pert (TEM-PCR) B.parapertussis DNA PCR C. pneumoniae DNA (PCR) Coronavirus OC43 (PCR) Coronavirus HKU1 (PCR) Coronavirus 229E (PCR) Coronavirus NL63 (PCR) Human Metapneumovir PCR Influenza A (RT-PCR) Influenza A (H1) PCR Influ A (H1/09) PCR Influenza A (H3) PCR Influenza B (RT-PCR) M. pneumoniae (PCR) Parainfluenza 1 (PCR) Parainfluenza 2 (PCR) Parainfluenza 3 (PCR) Parainfluenza 4 (PCR) RSV (PCR) Entero/Rhino (PCR) SARS-CoV-2 RNA (RT-PCR) Preliminary micro results at discharge 01/25/25 03:39 Blood Culture - Preliminary Blood - Venous No growth after 24 hours. 01/25/25 03:40 Blood Culture - Preliminary Blood - Venous No growth after 24 hours. Discharge Plan Discharge Anticipated Discharge Date/Time: 01/26/25 11:17 Patient Disposition: Xfer Acute Care Hospital Discharge Diagnosis: Cardiogenic shock, takotsubo cardiomyopathy Referrals: Physician,Unknown J [Primary Care Provider] - 1 Week Discharge Medications: Discontinued ipratropium-albuterol 0.5 mg-3 mg(2.5 mg base)/3 mL solution for nebulization 3 ml inhalation BID PRN (Reason: Shortness Of Breath Or Wheezing) prednisone 5 mg tablet 1 tab PO DAILY albuterol sulfate 90 mcg/actuation HFA aerosol inhaler 2 inh inhalation Q6H PRN (Reason: Shortness Of Breath Or Wheezing) fluticasone propionate 50 mcg/actuation spray,suspension 1 spray intranasal BID PRN (Reason: Allergy Symptoms) multivitamin Tablet 1 tab PO DAILY diltiazem HCl 180 mg Capsule,Extended Release 24hr 180 mg PO DAILY albuterol sulfate 2.5 mg /3 mL (0.083 %) solution for nebulization 2.5 mg inhalation QID PRN (Reason: dyspnea) cetirizine 10 mg Tablet 10 mg PO DAILY famotidine 40 mg tablet 40 mg PO BID ascorbic acid (vitamin C) [Vitamin C] 500 mg Tablet 500 mg PO DAILY ferrous sulfate [FeroSul] 325 mg (65 mg iron) tablet 325 mg PO Q48H ergocalciferol (vitamin D2) 1,250 mcg (50,000 unit) capsule 1,250 mcg PO MO pregabalin 25 mg capsule 50 mg PO Q12H buprenorphine-naloxone 8-2 mg film 1 film sublingual DAILY Trelegy Ellipta 100-62.5-25 mcg Blister With Device 1 inh INHALATION DAILY Discharge Orders: Discharge Order (Routine); Ordered 01/26/25 Ordered By: Leonard Hoff Activity on Discharge: Bedrest Stand Alone Forms: Patient Portal Discharge page Print Language: Unable To Collect Care Plan Goals: Advanced heart failure evaluation Health Concerns: Cardiogenic shock/takotsubo cardiomyopathy Plan of Treatment: Advanced heart failure evaluation Assessment: 64-year-old lady admitted with hypoxia respiratory distress requiring intubation with hospital course complicated by development of likely cardiogenic shock with noted newly reduced ejection fraction and takotsubo physiology on echocardiogram with end-organ damage including ischemic ATN/ischemic hepatitis, metabolic acidosis, and AFib with RVR.
[2025-01-26 11:21] LABS: Glucose, Whole Blood 325 mg/dL (60-115)
--- NOTE | 2025-01-26 11:35 | MHC.CM.PN ---
Pt is intubated and unable to participate in CM assessment: Pt will be transferred to [facility] for continued cardiac management. MD to contact family and notify.
[2025-01-26] MEDS: Hydrocortisone Sod Succ/PF 100 MG VIAL IVPUSH (12:46)
--- NOTE | 2025-01-26 13:41 | PC.NURSE ---
assumed care 0700 on 01/26/25. initial assessment patient sedated (propofol) and intubated (7.0ETT & 21 @Lip), on Levophed, Amiodarone, Heparin, and Bicarb Gtt. +Cough/-Gag, not following commands, -eye opening, -tracking. RASS -5,but indicated for vent synchrony. OGT clamped, TLC to L Internal Jugular(intact, patent, +blood return)(clean, dry, intact dressing). overnight patient lactic trending up, troponins trending up, heparin gtt sub-therapeutic this morning (adjusted per protocol), see morning blood gas results, Vent settings adjusted for increased minute ventilation to breathe off additional CO2, patient still yet to void...Q4hr bladder scans... bladder volume increasing, but still below required amount for catheter. Per MD at approx 0800, ?[facility] transfer pending cardio consult in setting of cardiogenic shock. patient levophed requirements unchanged (see MAR) Computer Education Professor to bedside for consult, senior analytic consultant stated: obtain trans-thoracic Echo. STAT Echo order placed by this RN due to Cardio MD verbal order. after Echo results MD stated will proceed with Transfer to [facility]. patient accepted, bed obtained, RN to RN report (given by this RN to [place] RN), flight team required for transport, flight team and EMS arrived and patient wheeled out of unit with med-flight and EMS at 13:58.
== END 2025-01-26 13:58 | disposition short-term general hospital (02) | DRG 871 ==
LOC: HO.ED 04:46 → HO.EDOVER 06:57 → HO.ICU 07:36
PROVIDERS: Internal Medicine Critical Care Medicine; Admitting Provider Physician Assistant Medical; Emergency Provider Internal Medicine; Visit Provider Physician Assistant Medical
DX: A41.9 Sepsis, unspecified organism (principal); J69.0 Pneumonitis due to inhalation of food and vomit; J96.21 Acute and chronic respiratory failure with hypoxia; J96.22 Acute and chronic respiratory failure with hypercapnia; R57.0 Cardiogenic shock; K72.00 Acute and subacute hepatic failure without coma; R65.21 Severe sepsis with septic shock; C74.90 Malignant neoplasm of unspecified part of unspecified adrenal gland; J44.1 Chronic obstructive pulmonary disease with (acute) exacerbation; I48.19 Other persistent atrial fibrillation; I51.81 Takotsubo syndrome; R34 Anuria and oliguria; B97.89 Other viral agents as the cause of diseases classified elsewhere; D64.9 Anemia, unspecified; Z22.322 Carrier or suspected carrier of Methicillin resistant Staphylococcus aureus; Z20.822 Contact with and (suspected) exposure to COVID-19; Z99.81 Dependence on supplemental oxygen; Z87.891 Personal history of nicotine dependence; Z85.3 Personal history of malignant neoplasm of breast; Z79.52 Long term (current) use of systemic steroids
CPT/HCPCS: 0241U; 36415; 36600; 71045; 80053; 82803; 82947; 83605; 83690; 83735; 83880; 84100; 84484; 85007; 85025; 85027; 85610; 85730; 87040; 87070; 87205; 87633; 87640; 87641; 93005; 93306; 94002; 94003; 94640; 94799; 99285; J0282; J0283; J0456; J0696; J1630; J1644; J1650; J1720; J2250; J2270; J2359; J2371; J2405; J2470; J2704; J2919; J3475; P9047

== ENCOUNTER → 2025-01-25 03:27 | Outpatient (BNV) | payer MEDICARE, MEDICAID, SELFPAY | PROVIDERS: Admitting Provider Physician Assistant Medical; Emergency Provider Internal Medicine; Visit Provider Internal Medicine | DX: R94.31 Abnormal electrocardiogram [ECG] [EKG] (principal); I48.91 Unspecified atrial fibrillation; R06.00 Dyspnea, unspecified | CPT/HCPCS: 93010 ==

== ENCOUNTER → 2025-01-25 04:23 | Outpatient (BNV) | payer MEDICARE, MEDICAID, SELFPAY | PROVIDERS: Emergency Provider Internal Medicine; Visit Provider Radiology Diagnostic Radiology | DX: R06.02 Shortness of breath (principal); Z95.9 Presence of cardiac and vascular implant and graft, unspecified | CPT/HCPCS: 71045 ==

== ENCOUNTER 2025-01-25 06:53 | Outpatient (BNV) | payer MEDICARE, MEDICAID, SELFPAY | END 2025-01-26 08:50 | PROVIDERS: Admitting Provider Physician Assistant Medical; Emergency Provider Internal Medicine; Visit Provider Internal Medicine Cardiovascular Disease | DX: I34.0 Nonrheumatic mitral (valve) insufficiency (principal); I48.91 Unspecified atrial fibrillation | CPT/HCPCS: 93306 ==

== ENCOUNTER → 2025-01-25 06:53 | Outpatient (BNV) | payer MEDICARE, MEDICAID, SELFPAY | PROVIDERS: Admitting Provider Physician Assistant Medical; Emergency Provider Internal Medicine; Visit Provider Internal Medicine Cardiovascular Disease | DX: R57.9 Shock, unspecified (principal) | CPT/HCPCS: 99223 ==

== ENCOUNTER → 2025-01-25 06:53 | Outpatient (BNV) | payer MEDICARE, MEDICAID, SELFPAY | PROVIDERS: Admitting Provider Physician Assistant Medical; Emergency Provider Internal Medicine; Visit Provider Internal Medicine Pulmonary Disease | DX: R57.0 Cardiogenic shock (principal); I48.91 Unspecified atrial fibrillation; K72.00 Acute and subacute hepatic failure without coma; N17.0 Acute kidney failure with tubular necrosis; J96.21 Acute and chronic respiratory failure with hypoxia; E87.20 Acidosis, unspecified; C50.919 Malignant neoplasm of unspecified site of unspecified female breast; C74.90 Malignant neoplasm of unspecified part of unspecified adrenal gland; J44.9 Chronic obstructive pulmonary disease, unspecified | CPT/HCPCS: 99239 ==

== ENCOUNTER → 2025-01-25 06:53 | Outpatient (BNV) | payer MEDICARE, MEDICAID, SELFPAY | PROVIDERS: Admitting Provider Physician Assistant Medical; Emergency Provider Internal Medicine; Visit Provider Internal Medicine Critical Care Medicine | DX: J96.21 Acute and chronic respiratory failure with hypoxia (principal); I48.91 Unspecified atrial fibrillation; I48.0 Paroxysmal atrial fibrillation; R57.0 Cardiogenic shock | CPT/HCPCS: 99223 ==